=== PATIENT | male | born 1980 | race Caucasian/White ===

== ENCOUNTER 2020-08-28 11:07 | Outpatient (REF) | payer OTHER, SELFPAY ==
[2020-08-28 11:44] LABS: COVID-19 Test Negative (Negative); IDNOW Serial# 08D9AD1C
== END 2020-08-28 11:08 | disposition home or self-care (01) ==
LOC: HO.LAB 11:07
PROVIDERS: Visit Provider Internal Medicine
DX: Z20.822 Contact with and (suspected) exposure to COVID-19 (principal)
CPT/HCPCS: 36415; 87635; C9803

== ENCOUNTER 2022-05-25 09:18 | Emergency (ER) | payer MEDICAID, SELFPAY ==
--- NOTE | ~2022-05-25 | US_ITS ---
EXAMINATION: US VENOUS ULTRASOUND WITH DOPPLER LOWER EXTREMITY, BILATERAL CLINICAL INFORMATION: Leg swelling COMPARISON: None TECHNIQUE: Ultrasound of the deep veins is performed from the hip to the calf with compression sonography and color and pulse Doppler assessment. Spectral analysis with color-flow imaging is performed. FINDINGS: RIGHT: There is normal venous compression and respiratory variation and augmented flow. The visualized common femoral vein, superficial femoral vein, profunda femoral vein, popliteal vein, and the trifurcation region shows no evidence of deep venous thrombosis. There is no significant popliteal fossa cyst. LEFT: There is normal venous compression and respiratory variation and augmented flow. The visualized common femoral vein, superficial femoral vein, profunda femoral vein, popliteal vein, and the trifurcation region shows no evidence of deep venous thrombosis. There is no significant popliteal fossa cyst. If the patient's symptoms persist, followup ultrasound in 5 days 7 days might be of value to exclude proximal propagation from a non-visualized calf vein. Enlarged lymph nodes in the bilateral inguinal regions. US/US venous duplex LE BI IMPRESSION: No DVT demonstrated in the bilateral lower extremity.
--- NOTE | ~2022-05-25 | XR_ITS ---
EXAMINATION: XR CHEST CLINICAL INFORMATION: Cough COMPARISON: June 14, 2018 TECHNIQUE: 2 views of the chest were obtained. FINDINGS: No significant abnormality is noted involving the heart, lungs, mediastinum, bony thorax or soft tissues. XR/XR chest 2V IMPRESSION: No acute disease.
[2022-05-25 09:22] VITALS: BP 155/82; PULSE 90; RESP 19; TEMP 37.2; O2SAT 98; BMI 39.4
--- NOTE | 2022-05-25 09:40 | ED_ITS ---
HPI - URI/Sore Throat General Chief Complaint: Upper Respiratory Symptoms Stated Complaint: chills body numbness Time Seen by Provider: 05/25/22 09:33 Source: patient Mode of arrival: ambulatory Limitations: no limitations History of Present Illness HPI Narrative: This is a 41-year-old male with a history of smoking cigarettes, IV heroin use who presents with complaints of 2 days of chills, tactile fevers, body aches, cough. Patient reports 2 weeks ago he had COVID but seemed to recover from that. For the last 2 weeks he started to have symptoms again and became concerned. He denies any shortness of breath, chest pain, headache, neck pain or neck stiffness, skin rash, vomiting, diarrhea, abdominal pain, urinary symptoms. Patient reports bilateral lower extremity swelling and pain which he has had for several months. Patient reports he was seen by his primary care docto for this and had some blood work but patient does not know the result. He denies any additional testing. Patient feels like the swelling is about the same does not feel like it is worse. He does sometimes have some shortness of breath when he moves around but this has been a longstanding problem for him. Denies known history of liver disease/hepatitis C. NO alcohol use. Patient reports smokes cigarettes daily. Does use 3 bags of IV heroin daily. No additional substance use. Related Data Previous Rx's Medication Instructions Recorded doxycycline monohydrate 100 mg 100 mg PO BID #20 tabs 05/25/22 tablet Allergies Allergy/AdvReac Type Severity Reaction Status Date / Time No Known Allergies Allergy Unverified 02/09/20 15:53 [No Known Allergies*] Review of Systems Review of Systems: Yes all other systems are reviewed and are negative Constitutional: Constitutional: Reports no additional constitutional complaints, Reports body ache(s), Denies chills, Reports fever(s), Denies headache(s) and Denies weakness Eyes: Eyes: Reports no additional eye complaints and Denies change in vision ENT: Reports system reviewed and no additional complaints, except as documented, Denies dizziness, Denies headache(s), Denies nasal congestion, Denies nasal discharge and Denies neck pain Cardiovascular: Cardiovascular: Reports no additional cardiovascular complaints, Denies chest pain, Reports leg edema and Denies dyspnea Respiratory: Respiratory: Reports no additional respiratory complaints, Reports cough and Denies dyspnea Gastrointestinal: Gastrointestinal: Reports no additional gastrointestinal complaints, Denies abdominal pain, Denies diarrhea, Denies nausea and Denies vomiting Genitourinary: Genitourinary: Denies urinary incontinence Musculoskeletal: Musculoskeletal: Reports no additional musculoskeletal complaints, Denies back pain, Denies arthralgias, Denies joint swelling, Denies neck pain, Denies numbness and Denies tingling Integumentary/Breasts: Skin/Breast: Reports system reviewed and no additional complaints, except as docu and Denies rash Neurologic: Reports system reviewed and no additional complaints, except as documented, Denies Abnormal speech present, Denies dizziness, Denies headache(s), Denies numbness, Denies tingling and Denies weakness PMFSH Past Medical History Attestation statement: The following information was validated with the patient. Source: old records reviewed and nursing notes reviewed Social History Social History (Updated 05/25/22 @ 10:02 by Natty Cunningham NP) Patient Tobacco Use Status: Current everyday Tobacco user Use of substances other than those prescribed or required for medical reasons: Yes Substance Use Type: IV Drugs and Opiates Substance Use Frequency: Daily Advance Directives: No Advance Directives Information Provided: Yes Physical Exam Vital Signs: Vital Signs: Last Vital Signs Temp 101.1 F H 05/25/22 14:46 Pulse 84 05/25/22 14:46 Resp 16 05/25/22 14:46 BP 144/62 H 05/25/22 14:46 Pulse Ox 97 05/25/22 14:46 O2 Del Method 05/25/22 14:46 BMI result Body Mass Index 39.4 Const: General: cooperative, healthy appearing, comfortable and no acute distress Orientation/consciousness: patient oriented x3 Limitations: no limitations HEENT: Head: Yes normal to inspection Ears: hearing grossly normal bilaterally and TM's normal bilaterally General nose exam: Normal external nose present Face and sinus: Yes normal facial exam Mouth: Normal oral and palatal mucosa present Throat: Yes posterior oropharynx normal, Yes tonsils normal and Yes uvula midline Eyes: General: appearance normal, both eyes and all related structures Pupils: Equal, round and reactive pupils present Neck: Neck: Yes normal visual inspection, Yes full ROM, Yes no lymphadenopathy and Yes no meningeal signs Chest: Chest palpation & inspection: normal inspection of the chest Resp: Effort & Inspection: normal respiratory effort Auscultation: clear to auscultation bilaterally Cardio: Rate: regular rate Rhythm: regular rhythm Peripheral pulses: Peripheral pulses 2+ throughout GI: Inspection: Yes normal to inspection Palpation (GI): Soft to palpation and nontender Auscultation: normal bowel sounds Back/Spine/Pelvis: Thoracic/Lumbar Spine: thoracic and lumbar spine normal to inspection Skin: General skin exam: no rashes or lesions noted Neuro: General: patient oriented x3, no meningeal signs, no focal motor deficits and normal sensation to monofilament Cranial nerves: Yes Equal, round and reactive pupils present Cognition (Neuro): normal cognition Speech: No Abnormal speech present Gait exam (Neuro): Normal gait present Motor exam (neuro): 5/5 motor strength present throughout Extrem: Other: Patient with non-pitting edema of both bilateral lower extremities with disc oloration, slight warmth. Patient with palpable DP and PT pulses. General: Yes normal to inspection Course Course Course Narrative: 1100-lactic acid 3.3. Likely from dehydration and not from infection. IV fluids ordered Reevaluation(s) Reevaluation #1: Labs show thrombocytopenia, mildly elevated AST and ALT. This could be from recent viral infection however, now with fever 101.1 so consider other source. Also consider hepatitis-C so hepatitis panel was added with patient's consent. Due to flu-like symptoms with history of IV drug abuse also consider HIV so this was also ordered. Also consider underlying bacteremia, endocarditis d/t IVDA. Want to admit patient but he declined this aware we cannot rule these things out and he may need more testing, IV antibiotics. Patient declined. Did offer for the patient is to speak to the women's swim coach, offered methadone/Suboxone. Patient declined. Will leave AMA. Medications Administered Discontinued Medications Generic Name Dose Route Start Last Admin Trade Name Freq PRN Reason Stop Dose Admin Acetaminophen 975 mg 05/25/22 14:38 05/25/22 14:44 Acetaminophen 325 Mg Tablet PO 05/25/22 14:39 975 mg ONCE ONE Administration Doxycycline Monohydrate 100 mg 05/25/22 14:46 05/25/22 14:56 Doxycycline Monohydrate 100 Mg Capsule PO 05/25/22 14:47 100 mg ONCE ONE Administration Sodium Chloride 1,000 mls @ 999 mls/hr 05/25/22 11:05 05/25/22 14:57 Ns IV 05/25/22 12:05 Infused .Q1H1M STA Infusion Medical Decision Making Medical Decision Making [facility] Narrative: This is a 41-year-old male who has a history of IV drug abuse presents with 2 days of cough, chills, tactile temps as well as months of bilateral lower extremity swelling, vague dyspnea. Patient recovered from COVID 2 weeks ago. On arrival vitals are stable. Lungs clear. Patient with bilateral lower extremity non- pitting edema. Exam otherwise benign. D/t IVDA history with reports of chills/subjective fever will check labs, testing for flu/covid/rsv, EKG, CXR, venous US. Differential Diagnosis Differential Diagnoses: The differential diagnosis associated with the presentation includes DVT, cellulitis, viral syndrome, CHF, liver disease (hep C), bacteremia Low concern for meningitis-no PACKER, neck pain/stiffness, photophobia, neuro findings Low concern for epidural abscess with no reports of back or neck pain, no neuro findings or complaints Admission/Observation Consideration of admission/observation: Escalation of care including admission/observation considered Due to history of IV drug abuse now with fever from unknown source consider admission for further testing, treatment with IV antibiotics. Patient declined this some leave against medical advice Lab Data [facility] Lab Attestation statement: I reviewed the patient's lab results. Result Diagrams: 05/25/22 10:43 05/25/22 10:43 Labs: Lab Results 05/25/22 05/25/22 05/25/22 Range/Units 09:21 10:43 10:43 WBC 6.9 (4.8-10.8) X10*3/uL RBC 3.84 L (4.60-5.80) X10*6/uL Hgb 11.2 L (14.0-18.0) g/dl Hct 34.4 L (42.0-52.0) % MCV 89.6 (80.0-98.0) fL MCH 29.2 (27.0-33.0) pg MCHC 32.6 (31.0-36.0) g/dl RDW 14.3 (11.0-16.0) % Plt Count 59 L (160-400) X10*3/uL MPV 11.8 (9.4-12.4) fL Immature Gran % (Auto) 0.1 (0.0-0.4) % Neut % (Auto) 73.6 H (45-73) % Lymph % (Auto) 12.7 L (20-40) % [place] % (Auto) 13.0 H (2-11) % Eos % (Auto) 0.3 (0-4) % Baso % (Auto) 0.3 (0-2) % Lymph # (Auto) 0.9 L (1.2-4.9) X10*3/uL [place] # (Auto) 0.9 (0.1-1.2) X10*3/uL Eos # (Auto) 0.0 (0.0-0.4) X10*3/uL Baso # (Auto) 0.0 (0.0-0.2) X10*3/uL Abs Immat Gran (auto) 0.01 (0.00-0.03) X10*3/uL Absolute Neuts (auto) 5.1 (2.0-8.3) x10*3/uL Absolute Nucleated RBC 0.000 (0.0-0.012) X10*3/uL Nucleated RBC % (auto) 0.0 (0.0-0.2) /100WBC PT 14.4 H (10.0-13.1) SEC INR 1.2 H (0.9-1.1) Sodium (135-145) mmol/L Potassium (3.3-5.1) mmol/L Chloride (96-108) mmol/L Carbon Dioxide (22-29) mmol/L Anion Gap (12-20) BUN (9-16) mg/dL Creatinine (0.5-1.4) mg/dL Estim Creat Clear Calc Estimated GFR Random Glucose (60-115) mg/dL Lactic Acid (0.5-2.0) mmol/L Calcium (8.4-10.2) mg/dL Total Bilirubin (0.0-1.0) mg/dL Direct Bilirubin (0.0-0.5) mg/dL AST (5-37) U/L ALT (0-40) U/L Alkaline Phosphatase (39-117) U/L Troponin I High Sens (<3.5-35.0) ng/L B-Natriuretic Peptide (<100) pg/mL Total Protein (6.5-8.0) g/dL Albumin (3.5-5.0) g/dL Urine Color Urine Appearance Urine pH (5.0-9.0) Ur Specific [place] (1.005-1.025) Urine Protein (Neg-Trace) mg/dL Urine Glucose (UA) (Negative) mg/dL Urine Ketones (Negative) mg/dL Urine Blood (Negative) Urine Nitrite (Negative) Ur Leukocyte Esterase (Negative) Influenza Type A (PCR) NEGATIVE (Negative) Influenza Type B (PCR) NEGATIVE (Negative) RSV RNA Qual (PCR) NEGATIVE (Negative) SARS-CoV-2 RNA (RT-PCR) POSITIVE A (Negative) 05/25/22 05/25/22 05/25/22 Range/Units 10:43 10:43 10:43 WBC (4.8-10.8) X10*3/uL RBC (4.60-5.80) X10*6/uL Hgb (14.0-18.0) g/dl Hct (42.0-52.0) % MCV (80.0-98.0) fL MCH (27.0-33.0) pg MCHC (31.0-36.0) g/dl RDW (11.0-16.0) % Plt Count (160-400) X10*3/uL MPV (9.4-12.4) fL Immature Gran % (Auto) (0.0-0.4) % Neut % (Auto) (45-73) % Lymph % (Auto) (20-40) % [place] % (Auto) (2-11) % Eos % (Auto) (0-4) % Baso % (Auto) (0-2) % Lymph # (Auto) (1.2-4.9) X10*3/uL [place] # (Auto) (0.1-1.2) X10*3/uL Eos # (Auto) (0.0-0.4) X10*3/uL Baso # (Auto) (0.0-0.2) X10*3/uL Abs Immat Gran (auto) (0.00-0.03) X10*3/uL Absolute Neuts (auto) (2.0-8.3) x10*3/uL Absolute Nucleated RBC (0.0-0.012) X10*3/uL Nucleated RBC % (auto) (0.0-0.2) /100WBC PT (10.0-13.1) SEC INR (0.9-1.1) Sodium 135 (135-145) mmol/L Potassium 4.2 (3.3-5.1) mmol/L Chloride 102 (96-108) mmol/L Carbon Dioxide 26 (22-29) mmol/L Anion Gap 11 L (12-20) BUN 15 (9-16) mg/dL Creatinine 0.87 (0.5-1.4) mg/dL Estim Creat Clear Calc 146.5 Estimated GFR > 60 Random Glucose 83 (60-115) mg/dL Lactic Acid (0.5-2.0) mmol/L Calcium 8.6 (8.4-10.2) mg/dL Total Bilirubin 0.8 (0.0-1.0) mg/dL Direct Bilirubin 0.4 (0.0-0.5) mg/dL AST 97 H (5-37) U/L ALT 65 H (0-40) U/L Alkaline Phosphatase 69 (39-117) U/L Troponin I High Sens < 3.5 (<3.5-35.0) ng/L B-Natriuretic Peptide 53 (<100) pg/mL Total Protein 8.1 H (6.5-8.0) g/dL Albumin 3.6 (3.5-5.0) g/dL Urine Color Urine Appearance Urine pH (5.0-9.0) Ur Specific [place] (1.005-1.025) Urine Protein (Neg-Trace) mg/dL Urine Glucose (UA) (Negative) mg/dL Urine Ketones (Negative) mg/dL Urine Blood (Negative) Urine Nitrite (Negative) Ur Leukocyte Esterase (Negative) Influenza Type A (PCR) (Negative) Influenza Type B (PCR) (Negative) RSV RNA Qual (PCR) (Negative) SARS-CoV-2 RNA (RT-PCR) (Negative) 05/25/22 05/25/22 05/25/22 Range/Units 10:43 11:47 14:43 WBC (4.8-10.8) X10*3/uL RBC (4.60-5.80) X10*6/uL Hgb (14.0-18.0) g/dl Hct (42.0-52.0) % MCV (80.0-98.0) fL MCH (27.0-33.0) pg MCHC (31.0-36.0) g/dl RDW (11.0-16.0) % Plt Count (160-400) X10*3/uL MPV (9.4-12.4) fL Immature Gran % (Auto) (0.0-0.4) % Neut % (Auto) (45-73) % Lymph % (Auto) (20-40) % [place] % (Auto) (2-11) % Eos % (Auto) (0-4) % Baso % (Auto) (0-2) % Lymph # (Auto) (1.2-4.9) X10*3/uL [place] # (Auto) (0.1-1.2) X10*3/uL Eos # (Auto) (0.0-0.4) X10*3/uL Baso # (Auto) (0.0-0.2) X10*3/uL Abs Immat Gran (auto) (0.00-0.03) X10*3/uL Absolute Neuts (auto) (2.0-8.3) x10*3/uL Absolute Nucleated RBC (0.0-0.012) X10*3/uL Nucleated RBC % (auto) (0.0-0.2) /100WBC PT (10.0-13.1) SEC INR (0.9-1.1) Sodium (135-145) mmol/L Potassium (3.3-5.1) mmol/L Chloride (96-108) mmol/L Carbon Dioxide (22-29) mmol/L Anion Gap (12-20) BUN (9-16) mg/dL Creatinine (0.5-1.4) mg/dL Estim Creat Clear Calc Estimated GFR Random Glucose (60-115) mg/dL Lactic Acid 3.3 H* 1.0 (0.5-2.0) mmol/L Calcium (8.4-10.2) mg/dL Total Bilirubin (0.0-1.0) mg/dL Direct Bilirubin (0.0-0.5) mg/dL AST (5-37) U/L ALT (0-40) U/L Alkaline Phosphatase (39-117) U/L Troponin I High Sens (<3.5-35.0) ng/L B-Natriuretic Peptide (<100) pg/mL Total Protein (6.5-8.0) g/dL Albumin (3.5-5.0) g/dL Urine Color Yellow Urine Appearance Clear Urine pH 6.0 (5.0-9.0) Ur Specific [place] >= 1.030 H (1.005-1.025) Urine Protein Trace (Neg-Trace) mg/dL Urine Glucose (UA) Negative (Negative) mg/dL Urine Ketones Negative (Negative) mg/dL Urine Blood Negative (Negative) Urine Nitrite Negative (Negative) Ur Leukocyte Esterase Negative (Negative) Influenza Type A (PCR) (Negative) Influenza Type B (PCR) (Negative) RSV RNA Qual (PCR) (Negative) SARS-CoV-2 RNA (RT-PCR) (Negative) Independent Interpretation I performed an independent interpretation of an: EKG (Independently reviewed the EKG as normal sinus rhythm with a rate 84, normal IA, normal QRS, normal QT), Plain X-Ray (no acute finding) and Ultrasound (I independently reviewed the venous ultrasound which is negative for DVT) Radiology Impression Discussion of test interpretation with radiology: I have reviewed the radiologis t's reading. Radiologist Impression: [address] [address] XRay Report Signed Patient: Alessandro Russo MR#: [id number] : 1980 Acct:[id number] Age/Sex: 41 / M ADM Date: 05/25/22 Loc: .ED Attending Dr: Ordering Physician: Natty Cunningham NP Date of Service: 05/25/22 Procedure(s): XR chest 2V Accession Number(s): [id number] cc: Natty Cunningham NP~ EXAMINATION: XR CHEST CLINICAL INFORMATION: Cough COMPARISON: June 14, 2018 TECHNIQUE: 2 views of the chest were obtained. FINDINGS: No significant abnormality is noted involving the heart, lungs, mediastinum, bony thorax or soft tissues. XR/XR chest 2V IMPRESSION: No acute disease. Venuos US IMPRESSION: No DVT demonstrated in the bilateral lower extremity. Social Determinants Patient?s care significantly limited by Social Determinants of Health including: Other Social Determinant of Health Current IVDA (heroin) Procedures EJ/Peripheral Line Arm R: Time Out Performed: No Skin Cleansed in Sterile Fashion: Yes Size (gauge): 22 IV Secured and Dressing Applied: Yes Patient Tolerated Procedure: well Discharge Plan Discharge Clinical Impression: Thrombocytopenia, Elevated liver enzymes, Fever of unknown origin Patient Disposition: Left Against Medical Advice Instructions: Fever in Adults (ED), Against Medical Advice (ED), Thrombocytopenia (ED) Additional Instructions: You need to have a repeat CBC/liver enzymes by your PCP We sent testing for hepatitis, HIV. Results take several days and we will call you if positive. We discussed that you may have bacteria in her blood stream, and infection in the valves of your heart are an infection somewhere else that we cannot rule out in the emergency room. Our advice would be for you to be admitted to the hospital to have further testing done and received IV antibiotics but at this time you declined this. Please return at any point and we will re-evaluate you Prescriptions: New doxycycline monohydrate 100 mg tablet 100 mg PO BID Qty: 20 0RF Referrals: [facility] [Primary Care Provider] - Stand Alone Forms: Against Medical Advice Interventions: ED Discharge Assessment Last Done: 05/25/22 15:26 Discharge Date/Time: 05/25/22 15:26
--- NOTE | 2022-05-25 09:55 | ECG_ITS ---
Test Reason : leg swelling Blood Pressure : / mmHG Vent. Rate : 084 BPM Atrial Rate : 084 BPM P-R Int : 136 ms QRS Dur : 112 ms QT Int : 398 ms P-R-T Axes : 053 022 048 degrees QTc Int : 470 ms Normal sinus rhythm Incomplete right bundle branch block Borderline ECG No previous ECGs available Referred By: Natty Cunningham Electronically Signed By:RACHELE GARCIA MD
[2022-05-25 10:46] LABS: Influenza A PCR NEGATIVE (Negative); Influenza B PCR NEGATIVE (Negative); Resp Syncy Virus RNA Qual PCR NEGATIVE (Negative); SARS COV2 PCR INHOUSE POSITIVE (Negative)
[2022-05-25 10:48] LABS: MANUAL DIFF FLAG NO
[2022-05-25 10:50] LABS: Basophils Percent Auto 0.3 % (0-2); Eosinophils Percent Auto 0.3 % (0-4); Hematocrit 34.4 % (42.0-52.0); Hemoglobin 11.2 g/dl (14.0-18.0); Imm Gran Abs Auto 0.01 X10*3/uL (0.00-0.03); Imm Gran Pct Auto 0.1 % (0.0-0.4); Lymphocytes Absolute Auto 0.9 X10*3/uL (1.2-4.9); Lymphocytes Percent Auto 12.7 % (20-40); Mean Corpuscular HGB Conc 32.6 g/dl (31.0-36.0); Mean Corpuscular Hemoglobin 29.2 pg (27.0-33.0); Mean Corpuscular Volume 89.6 fL (80.0-98.0); Mean Platelet Volume 11.8 fL (9.4-12.4); Monocytes Absolute Auto 0.9 X10*3/uL (0.1-1.2); Neutrophils Absolute Auto 5.1 x10*3/uL (2.0-8.3); Neutrophils Percent Auto 73.6 % (45-73); Red Blood Count 3.84 X10*6/uL (4.60-5.80); Red Cell Distribution Width 14.3 % (11.0-16.0); White Blood Count 6.9 X10*3/uL (4.8-10.8)
[2022-05-25 10:55] LABS: INTERNATIONAL NORM RATIO 1.2 (0.9-1.1); Prothrombin Time 14.4 SEC (10.0-13.1)
[2022-05-25 11:04] LABS: Lactic Acid 3.3 mmol/L (0.5-2.0)
[2022-05-25 11:07] LABS: Alanine Aminotransferase 65 U/L (0-40); Albumin Level 3.6 g/dL (3.5-5.0); Alkaline Phosphatase 69 U/L (39-117); Anion Gap 11 (12-20); Aspartate Amino Transferase 97 U/L (5-37); Bilirubin Direct 0.4 mg/dL (0.0-0.5); Bilirubin Total 0.8 mg/dL (0.0-1.0); Blood Urea Nitrogen 15 mg/dL (9-16); Calcium 8.6 mg/dL (8.4-10.2); Carbon Dioxide 26 mmol/L (22-29); Chloride 102 mmol/L (96-108); Creatinine Clr Calc Pharmacy 146.5; Estimated Glomerular Filt Rate > 60; Glucose Random 83 mg/dL (60-115); Potassium 4.2 mmol/L (3.3-5.1); Sodium 135 mmol/L (135-145); Total Protein 8.1 g/dL (6.5-8.0)
[2022-05-25 11:09] LABS: Platelet Count 59 X10*3/uL (160-400)
[2022-05-25 11:11] LABS: B Type Natriuretic Peptide 53 pg/mL (<100)
[2022-05-25 11:13] LABS: Troponin-I High Sensitivity < 3.5 ng/L (<3.5-35.0)
[2022-05-25 11:57] LABS: Appearance Urine Clear; Color Urine Yellow; Glucose Urine UA Negative (Negative); Leukocyte Esterase Urine Negative (Negative); Nitrite Urine Negative (Negative); Specific Gravity - Urine >= 1.030 (1.005-1.025); Urine Blood Negative (Negative); Urine Ketones Negative (Negative); Urine Protein Trace mg/dL (Neg-Trace)
[2022-05-25] MEDS: 0.9 % Sodium Chloride 1,000 ML 999 ML IV (12:04)
[2022-05-25 12:46] LABS: Reflex Lactate? Lactic Acid Added
--- NOTE | 2022-05-25 14:40 | PC.NURSE ---
2nd lactic sent to lab per order
[2022-05-25] MEDS: Acetaminophen 325 MG TABLET 975 MG PO (14:44)
[2022-05-25 14:46] VITALS: BP 144/62; PULSE 84; RESP 16; TEMP 38.4; O2SAT 97
[2022-05-25] MEDS: Doxycycline Monohydrate 100 MG CAPSULE PO (14:56)
[2022-05-28 04:54] LABS: HBS Num1 0.27 mIU/mL (0-7.99); HBc Num1 0.13 S/CO (0.00-0.79); HIV AB/AG Nonreactive (Nonreactive); HIV Num 1 0.07 S/CO (0.00-0.99); Hepatitis A Antibody IgM 0.17 Index (0-0.79); Hepatitis B Core Antibody Nonreactive (Nonreactive); Hepatitis B Surface Antigen Negative (Negative); ~HepC Num1 15.68 S/CO (0.00-0.79); ~Hepatitis A Antibody IgM Nonreactive (Nonreactive); ~Hepatitis B Surface Antibody NONREACTIVE (Nonreactive); ~Hepatitis C Antibody Reactive (Nonreactive)
== END 2022-05-25 15:26 | disposition left against medical advice (07) ==
PROVIDERS: Nurse Practitioner Family; Emergency Provider Emergency Medicine
DX: D69.6 Thrombocytopenia, unspecified (principal); R60.0 Localized edema; R50.9 Fever, unspecified; R20.0 Anesthesia of skin; R79.89 Other specified abnormal findings of blood chemistry; R05.9 Cough, unspecified; M79.10 Myalgia, unspecified site; R06.02 Shortness of breath; Z79.899 Other long term (current) drug therapy; Z20.822 Contact with and (suspected) exposure to COVID-19; Z87.891 Personal history of nicotine dependence
CPT/HCPCS: 0241U; 36415; 36556; 71046; 80048; 80076; 81003; 83605; 83880; 84484; 85025; 85610; 86704; 86706; 86709; 86803; 87040; 87077; 87186; 87205; 87340; 87389; 93005; 93970; 99284

== ENCOUNTER 2022-05-26 20:01 | Observation (INO) | payer MEDICAID, SELFPAY ==
--- NOTE | ~2022-05-26 | XR_ITS ---
EXAMINATION: XR CHEST CLINICAL INFORMATION: Positive blood cultures COMPARISON: 05/25/2022 TECHNIQUE: Frontal view of the chest was obtained. FINDINGS: Normal symmetric lung volumes. No parenchymal consolidation. No pleural effusion. No pneumothorax. Cardiomediastinal silhouette and pulmonary vascularity are within normal limits. No acute osseous abnormalities. XR/XR chest 1V IMPRESSION: No acute findings
[2022-05-26 20:34] VITALS: BP 132/66; PULSE 73; RESP 16; TEMP 36.6; O2SAT 98; BMI 40.1
--- NOTE | 2022-05-26 20:36 | ED_ITS ---
HPI - Recheck/Abnormal Lab/Rx General Chief Complaint: General Medical <KHADRA Hummel - Last Filed: 05/26/22 20:38> Stated Complaint: abnormal labs was seen here yesterday <KHADRA Hummel - Last Filed: 05/26/22 20:38> Time Seen by Provider: 05/26/22 21:06 <KHADRA Hummel - Last Filed: 05/26/22 20:38> Source: patient <Tico Rosenbaum MD - Last Filed: 05/27/22 01:03> Mode of arrival: ambulatory <Tico Rosenbaum MD - Last Filed: 05/27/22 01:03> Limitations: no limitations <Tico Rosenbaum MD - Last Filed: 05/27/22 01:03> History of Present Illness HPI narrative: Patient's history of IV drug abuse was seen here yesterday for chills body aches for last 2 days blood culture was done which showed Gram-positive cocci in chain patient initial lactic acid level was 3.3 improved after IV hydration to 1.0 had normal WBC count still does not feel good. Patient had COVID 2 weeks ago on 05/25/22 COVID test was positive today his repeat COVID test was negative patient denies any cold symptoms still has some cough afebrile on arrival <Tico Rosenbaum MD - Last Filed: 05/27/22 01:03> Related Data Home Medications: Previous Rx's Medication Instructions Recorded doxycycline monohydrate 100 mg 100 mg PO BID #20 tabs 05/25/22 tablet <KHADRA Hummel - Last Filed: 05/26/22 20:38> Allergies/Adverse Reactions: Allergies Allergy/AdvReac Type Severity Reaction Status Date / Time No Known Allergies Allergy Unverified 02/09/20 15:53 [No Known Allergies*] <KHADRA Hummel - Last Filed: 05/26/22 20:38> Review of Systems Review of Systems: Yes all other systems are reviewed and are negative <Tico Rosenbaum MD - Last Filed: 05/27/22 01:03> PMFSH Social History Social History: Social History Patient Tobacco Use Status: Current everyday Tobacco user Substance Use Type: IV Drugs and Opiates Advance Directives: No Advance Directives Information Provided: No <KHADRA Hummel - Last Filed: 05/26/22 20:38> Physical Exam Vital Signs: Vital Signs: Last Vital Signs Temp 97.8 F 05/26/22 22:52 Pulse 63 05/26/22 22:52 Resp 16 05/26/22 22:52 BP 142/77 H 05/26/22 22:52 Pulse Ox 97 05/26/22 22:52 O2 Del Method 05/26/22 22:52 BMI result Body Mass Index 40.1 <KHADRA Hummel - Last Filed: 05/26/22 20:38> Vital Signs: Last Vital Signs Temp 97.8 F 05/26/22 22:52 Pulse 63 05/26/22 22:52 Resp 16 05/26/22 22:52 BP 142/77 H 05/26/22 22:52 Pulse Ox 97 05/26/22 22:52 O2 Del Method 05/26/22 22:52 BMI result Body Mass Index 40.1 <Tico Rosenbaum MD - Last Filed: 05/27/22 01:03> Appearance: Alert. Oriented X3. No acute distress. Eyes: PERRLA, No Nystagmus ENT: Pharynx normal. Oral Mucosa moist Neck: Normal inspection. Neck supple. CVS: Normal heart rate and rhythm. Pulses normal. Respiratory: No respiratory distress. Equal air entry bilateral, no wheezing/rales/rhonchi Abdomen: Soft and nontender. Bowel sounds are present, no mass palpable, no CVA tenderness Skin: Skin warm and dry. Normal skin color. Normal skin turgor. Extremities: No lower extremity edema. No calf tenderness IVDA track ferrara++ Neuro: Oriented X 3. No motor deficit. No sensory deficit.No cerebellar signs , cranial nerves II-XII intact <Tico Rosenbaum MD - Last Filed: 05/27/22 01:03> Course Course Course Narrative: RME-20:36PM - 41-YEAR-OLD MALE WITH PAST MEDICAL HISTORY OF IV DRUG USE PRESENTING TO THE ER AFTER HE WAS CALLED BACK FROM US TODAY FOR POSSIBLE ENDOCARDITIS DUE TO PATIENT HAD POSITIVE BLOOD CULTURES THAT GREW BACK GRAM-POSITIVE COCCI IN CHAINS. Plan: Will obtain labs, blood cultures, lactic acid. Patient will be sent back to the waiting room to be evaluated in the ED. <KHADRA Hummel - Last Filed: 05/26/22 20:38> Medications Administered Generic Name Dose Route Start Last Admin Trade Name Freq PRN Reason Stop Dose Admin Sodium Chloride 3 ml 05/27/22 00:00 05/26/22 23:59 0.9 % Sodium Chloride Flush 3 Ml Syringe IVFLUSH Not Given QSHIFT MITCHELL Discontinued Medications Generic Name Dose Route Start Last Admin Trade Name Freq PRN Reason Stop Dose Admin Sodium Chloride 1,000 mls @ 999 mls/hr 05/26/22 20:45 05/26/22 23:28 Ns IVCONT 05/26/22 21:45 Infused .Q1H1M MITCHELL Infusion Ceftriaxone Sodium 1 gm/ 50 mls @ 100 mls/hr 05/26/22 21:10 05/26/22 22:07 Sodium Chloride IV 05/26/22 21:39 Infused ONCE ONE Infusion Vancomycin HCl 2,000 mg/ 540 mls @ 270 mls/hr 05/26/22 21:30 05/26/22 22:07 Sodium Chloride IV 05/26/22 23:29 270 mls/hr ONCE ONE Administration <KHADRA Hummel - Last Filed: 05/26/22 20:38> Medications Administered Generic Name Dose Route Start Last Admin Trade Name Freq PRN Reason Stop Dose Admin Sodium Chloride 3 ml 05/27/22 00:00 05/26/22 23:59 0.9 % Sodium Chloride Flush 3 Ml Syringe IVFLUSH Not Given QSHIFT MITCHELL Discontinued Medications Generic Name Dose Route Start Last Admin Trade Name Freq PRN Reason Stop Dose Admin Sodium Chloride 1,000 mls @ 999 mls/hr 05/26/22 20:45 05/26/22 23:28 Ns IVCONT 05/26/22 21:45 Infused .Q1H1M MITCHELL Infusion Ceftriaxone Sodium 1 gm/ 50 mls @ 100 mls/hr 05/26/22 21:10 05/26/22 22:07 Sodium Chloride IV 05/26/22 21:39 Infused ONCE ONE Infusion Vancomycin HCl 2,000 mg/ 540 mls @ 270 mls/hr 05/26/22 21:30 05/26/22 22:07 Sodium Chloride IV 05/26/22 23:29 270 mls/hr ONCE ONE Administration <Tico Rosenbaum MD - Last Filed: 05/27/22 01:03> Medical Decision Making Medical Decision Making [facility] Narrative: Patient with history of IVDA use with subjective fever and chills initial blood culture showed Gram-positive cocci in chain had initially elevated lactic acid patient with high risk of strep bacteremia could be very dense versus epidural disease. Will start patient back on vancomycin and Rocephin plan to admit till final culture report <Tico Rosenbaum MD - Last Filed: 05/27/22 01:03> Consult Healthcare Provider Management of the patient was discussed with: Hospitalist <Tico Rosenbaum MD - Last Filed: 05/27/22 01:03> Lab Data [facility] Lab Attestation statement: I reviewed the patient's lab results. <Tico Rosenbaum MD - Last Filed: 05/27/22 01:03> Result Diagrams: : 05/26/22 20:51 05/26/22 20:51 <KHADRA Hummel - Last Filed: 05/26/22 20:38> Labs: Lab Results 05/26/22 05/26/22 05/26/22 Range/Units 20:51 20:51 20:51 WBC 4.6 L (4.8-10.8) X10*3/uL RBC 3.54 L (4.60-5.80) X10*6/uL Hgb 10.4 L (14.0-18.0) g/dl Hct 31.1 L (42.0-52.0) % MCV 87.9 (80.0-98.0) fL MCH 29.4 (27.0-33.0) pg MCHC 33.4 (31.0-36.0) g/dl RDW 14.0 (11.0-16.0) % Plt Count 76 L D (160-400) X10*3/uL MPV 10.9 (9.4-12.4) fL Immature Gran % (Auto) 0.2 (0.0-0.4) % Neut % (Auto) 51.4 (45-73) % Lymph % (Auto) 33.1 (20-40) % [place] % (Auto) 14.2 H (2-11) % Eos % (Auto) 0.7 (0-4) % Baso % (Auto) 0.4 (0-2) % Lymph # (Auto) 1.5 (1.2-4.9) X10*3/uL [place] # (Auto) 0.7 (0.1-1.2) X10*3/uL Eos # (Auto) 0.0 (0.0-0.4) X10*3/uL Baso # (Auto) 0.0 (0.0-0.2) X10*3/uL Abs Immat Gran (auto) 0.01 (0.00-0.03) X10*3/uL Absolute Neuts (auto) 2.4 (2.0-8.3) x10*3/uL Absolute Nucleated RBC 0.000 (0.0-0.012) X10*3/uL Nucleated RBC % (auto) 0.0 (0.0-0.2) /100WBC ESR (0-15) MM/HR PT (10.0-13.1) SEC INR (0.9-1.1) Sodium 137 (135-145) mmol/L Potassium 3.4 (3.3-5.1) mmol/L Chloride 104 (96-108) mmol/L Carbon Dioxide 24 (22-29) mmol/L Anion Gap 12 (12-20) BUN 19 H (9-16) mg/dL Creatinine 0.87 (0.5-1.4) mg/dL Estim Creat Clear Calc 148.0 Estimated GFR > 60 Random Glucose 123 H (60-115) mg/dL Lactic Acid 1.2 (0.5-2.0) mmol/L Calcium 8.2 L (8.4-10.2) mg/dL Magnesium 2.2 (1.6-2.6) mg/dL Total Bilirubin 0.6 (0.0-1.0) mg/dL AST 125 H (5-37) U/L ALT 65 H (0-40) U/L Alkaline Phosphatase 55 (39-117) U/L C-Reactive Protein 6.38 H (< or = 0.50) mg/dL Total Protein 7.6 (6.5-8.0) g/dL Albumin 3.4 L (3.5-5.0) g/dL Influenza Type A (PCR) (Negative) Influenza Type B (PCR) (Negative) RSV RNA Qual (PCR) (Negative) SARS-CoV-2 RNA (RT-PCR) (Negative) 05/26/22 05/26/22 05/26/22 Range/Units 20:51 20:51 20:52 WBC (4.8-10.8) X10*3/uL RBC (4.60-5.80) X10*6/uL Hgb (14.0-18.0) g/dl Hct (42.0-52.0) % MCV (80.0-98.0) fL MCH (27.0-33.0) pg MCHC (31.0-36.0) g/dl RDW (11.0-16.0) % Plt Count (160-400) X10*3/uL MPV (9.4-12.4) fL Immature Gran % (Auto) (0.0-0.4) % Neut % (Auto) (45-73) % Lymph % (Auto) (20-40) % [place] % (Auto) (2-11) % Eos % (Auto) (0-4) % Baso % (Auto) (0-2) % Lymph # (Auto) (1.2-4.9) X10*3/uL [place] # (Auto) (0.1-1.2) X10*3/uL Eos # (Auto) (0.0-0.4) X10*3/uL Baso # (Auto) (0.0-0.2) X10*3/uL Abs Immat Gran (auto) (0.00-0.03) X10*3/uL Absolute Neuts (auto) (2.0-8.3) x10*3/uL Absolute Nucleated RBC (0.0-0.012) X10*3/uL Nucleated RBC % (auto) (0.0-0.2) /100WBC ESR 37 H (0-15) MM/HR PT 14.8 H (10.0-13.1) SEC INR 1.3 H (0.9-1.1) Sodium (135-145) mmol/L Potassium (3.3-5.1) mmol/L Chloride (96-108) mmol/L Carbon Dioxide (22-29) mmol/L Anion Gap (12-20) BUN (9-16) mg/dL Creatinine (0.5-1.4) mg/dL Estim Creat Clear Calc Estimated GFR Random Glucose (60-115) mg/dL Lactic Acid (0.5-2.0) mmol/L Calcium (8.4-10.2) mg/dL Magnesium (1.6-2.6) mg/dL Total Bilirubin (0.0-1.0) mg/dL AST (5-37) U/L ALT (0-40) U/L Alkaline Phosphatase (39-117) U/L C-Reactive Protein (< or = 0.50) mg/dL Total Protein (6.5-8.0) g/dL Albumin (3.5-5.0) g/dL Influenza Type A (PCR) NEGATIVE (Negative) Influenza Type B (PCR) NEGATIVE (Negative) RSV RNA Qual (PCR) NEGATIVE (Negative) SARS-CoV-2 RNA (RT-PCR) NEGATIVE (Negative) <KHADRA Hummel - Last Filed: 05/26/22 20:38> Lab Results 05/26/22 05/26/22 05/26/22 Range/Units 20:51 20:51 20:51 WBC 4.6 L (4.8-10.8) X10*3/uL RBC 3.54 L (4.60-5.80) X10*6/uL Hgb 10.4 L (14.0-18.0) g/dl Hct 31.1 L (42.0-52.0) % MCV 87.9 (80.0-98.0) fL MCH 29.4 (27.0-33.0) pg MCHC 33.4 (31.0-36.0) g/dl RDW 14.0 (11.0-16.0) % Plt Count 76 L D (160-400) X10*3/uL MPV 10.9 (9.4-12.4) fL Immature Gran % (Auto) 0.2 (0.0-0.4) % Neut % (Auto) 51.4 (45-73) % Lymph % (Auto) 33.1 (20-40) % [place] % (Auto) 14.2 H (2-11) % Eos % (Auto) 0.7 (0-4) % Baso % (Auto) 0.4 (0-2) % Lymph # (Auto) 1.5 (1.2-4.9) X10*3/uL [place] # (Auto) 0.7 (0.1-1.2) X10*3/uL Eos # (Auto) 0.0 (0.0-0.4) X10*3/uL Baso # (Auto) 0.0 (0.0-0.2) X10*3/uL Abs Immat Gran (auto) 0.01 (0.00-0.03) X10*3/uL Absolute Neuts (auto) 2.4 (2.0-8.3) x10*3/uL Absolute Nucleated RBC 0.000 (0.0-0.012) X10*3/uL Nucleated RBC % (auto) 0.0 (0.0-0.2) /100WBC ESR (0-15) MM/HR PT (10.0-13.1) SEC INR (0.9-1.1) Sodium 137 (135-145) mmol/L Potassium 3.4 (3.3-5.1) mmol/L Chloride 104 (96-108) mmol/L Carbon Dioxide 24 (22-29) mmol/L Anion Gap 12 (12-20) BUN 19 H (9-16) mg/dL Creatinine 0.87 (0.5-1.4) mg/dL Estim Creat Clear Calc 148.0 Estimated GFR > 60 Random Glucose 123 H (60-115) mg/dL Lactic Acid 1.2 (0.5-2.0) mmol/L Calcium 8.2 L (8.4-10.2) mg/dL Magnesium 2.2 (1.6-2.6) mg/dL Total Bilirubin 0.6 (0.0-1.0) mg/dL AST 125 H (5-37) U/L ALT 65 H (0-40) U/L Alkaline Phosphatase 55 (39-117) U/L C-Reactive Protein 6.38 H (< or = 0.50) mg/dL Total Protein 7.6 (6.5-8.0) g/dL Albumin 3.4 L (3.5-5.0) g/dL Influenza Type A (PCR) (Negative) Influenza Type B (PCR) (Negative) RSV RNA Qual (PCR) (Negative) SARS-CoV-2 RNA (RT-PCR) (Negative) 05/26/22 05/26/22 05/26/22 Range/Units 20:51 20:51 20:52 WBC (4.8-10.8) X10*3/uL RBC (4.60-5.80) X10*6/uL Hgb (14.0-18.0) g/dl Hct (42.0-52.0) % MCV (80.0-98.0) fL MCH (27.0-33.0) pg MCHC (31.0-36.0) g/dl RDW (11.0-16.0) % Plt Count (160-400) X10*3/uL MPV (9.4-12.4) fL Immature Gran % (Auto) (0.0-0.4) % Neut % (Auto) (45-73) % Lymph % (Auto) (20-40) % [place] % (Auto) (2-11) % Eos % (Auto) (0-4) % Baso % (Auto) (0-2) % Lymph # (Auto) (1.2-4.9) X10*3/uL [place] # (Auto) (0.1-1.2) X10*3/uL Eos # (Auto) (0.0-0.4) X10*3/uL Baso # (Auto) (0.0-0.2) X10*3/uL Abs Immat Gran (auto) (0.00-0.03) X10*3/uL Absolute Neuts (auto) (2.0-8.3) x10*3/uL Absolute Nucleated RBC (0.0-0.012) X10*3/uL Nucleated RBC % (auto) (0.0-0.2) /100WBC ESR 37 H (0-15) MM/HR PT 14.8 H (10.0-13.1) SEC INR 1.3 H (0.9-1.1) Sodium (135-145) mmol/L Potassium (3.3-5.1) mmol/L Chloride (96-108) mmol/L Carbon Dioxide (22-29) mmol/L Anion Gap (12-20) BUN (9-16) mg/dL Creatinine (0.5-1.4) mg/dL Estim Creat Clear Calc Estimated GFR Random Glucose (60-115) mg/dL Lactic Acid (0.5-2.0) mmol/L Calcium (8.4-10.2) mg/dL Magnesium (1.6-2.6) mg/dL Total Bilirubin (0.0-1.0) mg/dL AST (5-37) U/L ALT (0-40) U/L Alkaline Phosphatase (39-117) U/L C-Reactive Protein (< or = 0.50) mg/dL Total Protein (6.5-8.0) g/dL Albumin (3.5-5.0) g/dL Influenza Type A (PCR) NEGATIVE (Negative) Influenza Type B (PCR) NEGATIVE (Negative) RSV RNA Qual (PCR) NEGATIVE (Negative) SARS-CoV-2 RNA (RT-PCR) NEGATIVE (Negative) <Tico Rosenbaum MD - Last Filed: 05/27/22 01:03> Discharge Plan Discharge Clinical Impression: Bacteremia <KHADRA Hummel - Last Filed: 05/26/22 20:38> Patient Disposition: Admitted As Inpatient <KHADRA Hummel - Last Filed: 05/26/22 20:38>
[2022-05-26 21:02] LABS: MANUAL DIFF FLAG NO
[2022-05-26 21:03] LABS: Basophils Percent Auto 0.4 % (0-2); Eosinophils Percent Auto 0.7 % (0-4); Hematocrit 31.1 % (42.0-52.0); Hemoglobin 10.4 g/dl (14.0-18.0); Imm Gran Abs Auto 0.01 X10*3/uL (0.00-0.03); Imm Gran Pct Auto 0.2 % (0.0-0.4); Lymphocytes Absolute Auto 1.5 X10*3/uL (1.2-4.9); Lymphocytes Percent Auto 33.1 % (20-40); Mean Corpuscular HGB Conc 33.4 g/dl (31.0-36.0); Mean Corpuscular Hemoglobin 29.4 pg (27.0-33.0); Mean Corpuscular Volume 87.9 fL (80.0-98.0); Mean Platelet Volume 10.9 fL (9.4-12.4); Monocytes Absolute Auto 0.7 X10*3/uL (0.1-1.2); Monocytes Percent Auto 14.2 % (2-11); Neutrophils Absolute Auto 2.4 x10*3/uL (2.0-8.3); Neutrophils Percent Auto 51.4 % (45-73); Red Blood Count 3.54 X10*6/uL (4.60-5.80); White Blood Count 4.6 X10*3/uL (4.8-10.8)
[2022-05-26] MEDS: 0.9 % Sodium Chloride 1,000 ML 999 ML IVCONT (21:13)
[2022-05-26 21:14] LABS: INTERNATIONAL NORM RATIO 1.3 (0.9-1.1); Prothrombin Time 14.8 SEC (10.0-13.1)
[2022-05-26 21:16] LABS: Platelet Count 76 X10*3/uL (160-400)
[2022-05-26 21:21] LABS: Lactic Acid 1.2 mmol/L (0.5-2.0)
[2022-05-26] MEDS: cefTRIAXone sodium 1 GM in 0.9 % Sodium Chloride 50 ML IV (21:27)
[2022-05-26 21:34] LABS: C Reactive Protein 6.38 mg/dL (< or = 0.50)
[2022-05-26 21:41] LABS: Influenza A PCR NEGATIVE (Negative); Influenza B PCR NEGATIVE (Negative); Resp Syncy Virus RNA Qual PCR NEGATIVE (Negative); SARS COV2 PCR INHOUSE NEGATIVE (Negative)
[2022-05-26 21:42] LABS: Alanine Aminotransferase 65 U/L (0-40); Albumin Level 3.4 g/dL (3.5-5.0); Alkaline Phosphatase 55 U/L (39-117); Anion Gap 12 (12-20); Aspartate Amino Transferase 125 U/L (5-37); Bilirubin Total 0.6 mg/dL (0.0-1.0); Blood Urea Nitrogen 19 mg/dL (9-16); Calcium 8.2 mg/dL (8.4-10.2); Carbon Dioxide 24 mmol/L (22-29); Chloride 104 mmol/L (96-108); Estimated Glomerular Filt Rate > 60; Glucose Random 123 mg/dL (60-115); Magnesium 2.2 mg/dL (1.6-2.6); Potassium 3.4 mmol/L (3.3-5.1); Sodium 137 mmol/L (135-145); Total Protein 7.6 g/dL (6.5-8.0)
[2022-05-26 21:52] LABS: Erythrocyte Sedimentation Rate 37 MM/HR (0-15)
[2022-05-26 22:52] VITALS: BP 142/77; PULSE 63; RESP 16; TEMP 36.6; O2SAT 97
--- NOTE | 2022-05-26 23:23 | PM.IMHP ---
History of Present Illness Date of Service: 05/26/22 Chief Complaint: bacteremic 41-year-old male with past medical history of IV drug use presents to the hospital after a positive blood culture. Patient was seen in the hospital on 05/25 with respiratory symptoms, patient was diagnosed with COVID-19, bronchitis and sent home with doxycycline. patient also noted to have elevated lactic acid and febrile on 05/25. Lactic acid resolved with IV fluids, patient was sent home.He was called back today from the ED for positive blood cultures. Patient reports no symptoms at this time, he reports that he is feeling better. Denies having fever, no chills, denies any chest pain, no palpitations, no abdominal pain nausea or vomiting, no diarrhea constipation, no urinary symptoms. Reports no cough and no shortness of breath. patient does endorse injecting opioids arrival to the ED patient hemodynamically stable with no significant abnormal vitals except a slightly elevated blood pressure Labs are significant for WBC count of 4.6, hemoglobin of 10.4, hematocrit 31.1, ESR 37, CRP of 6.3, labs otherwise unremarkable, AST of 125, ALT of 65, was diagnosed with COVID-19 on 05/25 Blood cultures growing Gram-positive cocci in chains. Chest x-ray negative for acute findings Review of Systems Review of Systems: Yes all other systems are reviewed and are negative [facility] Medical History IV drug user Family History (Updated 05/27/22 @ 01:22 by Erin Flaherty MD) Other No family history of coronary artery disease Surgical History (Updated 05/27/22 @ 01:22 by Erin Flaherty MD) No pertinent past surgical history Social History (Updated 05/27/22 @ 01:23 by Erin Flaherty MD) Alcohol intake: current Patient Tobacco Use Status: Current everyday Tobacco user Cigarette Packs Per Day: 1 Substance Use Type: IV Drugs and Opiates Advance Directives: No Advance Directives Information Provided: No Meds Allergies Allergy/AdvReac Type Severity Reaction Status Date / Time No Known Allergies Allergy Unverified 02/09/20 15:53 [No Known Allergies*] Active Medications: Current Medications Vancomycin HCl 2,000 mg/ (Sodium Chloride) 540 mls @ 270 mls/hr IV ONCE ONE Stop: 05/26/22 23:29 Last Admin: 05/26/22 22:07 Dose: 270 mls/hr Physical Exam Vital Signs and Narrative: Vital Signs: Last Vital Signs Temp 97.8 F 05/26/22 22:52 Pulse 63 05/26/22 22:52 Resp 16 05/26/22 22:52 BP 142/77 H 05/26/22 22:52 Pulse Ox 97 05/26/22 22:52 O2 Del Method 05/26/22 22:52 BMI result Body Mass Index 40.1 Const: General: cooperative and no acute distress Orientation/consciousness: patient oriented x3 Eyes: General: appearance normal, both eyes and all related structures Resp: Effort & Inspection: normal respiratory effort Auscultation: clear to auscultation bilaterally Cardio: Rate: regular rate Rhythm: regular rhythm GI: Palpation (GI): Soft to palpation Auscultation: normal bowel sounds Skin: General skin exam: no rashes or lesions noted Neuro: General: patient oriented x3 Cognition (Neuro): normal cognition Extrem: General: Yes normal to inspection and Yes no pedal edema Results Labs CBC and Chem 7: 05/26/22 20:51 05/26/22 20:51 Labs: Laboratory Results - last 24 hr 05/26/22 05/26/22 05/26/22 20:51 20:51 20:51 MCV 87.9 MCH 29.4 MCHC 33.4 RDW 14.0 Plt Count 76 L D MPV 10.9 Immature Gran % (Auto) 0.2 Neut % (Auto) 51.4 Lymph % (Auto) 33.1 [place] % (Auto) 14.2 H Eos % (Auto) 0.7 Baso % (Auto) 0.4 Lymph # (Auto) 1.5 [place] # (Auto) 0.7 Eos # (Auto) 0.0 Baso # (Auto) 0.0 Abs Immat Gran (auto) 0.01 Absolute Neuts (auto) 2.4 Absolute Nucleated RBC 0.000 Nucleated RBC % (auto) 0.0 ESR PT INR Anion Gap 12 Estim Creat Clear Calc 148.0 Estimated GFR > 60 Random Glucose 123 H Lactic Acid 1.2 Calcium 8.2 L Magnesium 2.2 Total Bilirubin 0.6 AST 125 H ALT 65 H Alkaline Phosphatase 55 C-Reactive Protein 6.38 H Total Protein 7.6 Albumin 3.4 L Influenza Type A (PCR) Influenza Type B (PCR) RSV RNA Qual (PCR) SARS-CoV-2 RNA (RT-PCR) 05/26/22 05/26/22 05/26/22 20:51 20:51 20:52 MCV MCH MCHC RDW Plt Count MPV Immature Gran % (Auto) Neut % (Auto) Lymph % (Auto) [place] % (Auto) Eos % (Auto) Baso % (Auto) Lymph # (Auto) [place] # (Auto) Eos # (Auto) Baso # (Auto) Abs Immat Gran (auto) Absolute Neuts (auto) Absolute Nucleated RBC Nucleated RBC % (auto) ESR 37 H PT 14.8 H INR 1.3 H Anion Gap Estim Creat Clear Calc Estimated GFR Random Glucose Lactic Acid Calcium Magnesium Total Bilirubin AST ALT Alkaline Phosphatase C-Reactive Protein Total Protein Albumin Influenza Type A (PCR) NEGATIVE Influenza Type B (PCR) NEGATIVE RSV RNA Qual (PCR) NEGATIVE SARS-CoV-2 RNA (RT-PCR) NEGATIVE Assessment and Plan (1) Bacteremia: Status: Acute (2) COVID-19: Status: Acute Plan 41-year-old male with recent diagnosis of COVID-19 on 05/25 returns to the hospital after having a positive she blood cultures # bacteremia - blood cultures positive Gram-positive cocci in chains - likely contaminant but given prior day lactic acidosis and fever as well as history of IV drug use patient will be admitted and started on IV antibiotics - repeat cultures # COVID-19 infection - asymptomatic - monitor symptoms DVT prophylaxis: Early ambulation Time Spent With Patient Time: Total time managing care of this patient today ____ minutes. Quality Stroke Does the patient have a stroke diagnosis?: No VTE Prior VTE?: No VTE Risk Level:: Medical - low VTE Device Contraindication: Treatment Not Indicated VTE Drug Contraindication: Treatment Not Indicated
--- NOTE | 2022-05-27 05:50 | PC.NURSE ---
Re-Assessment/ transferring from [facility] to room 17: Pt V/S are stable, pt is a/o x 4, pt appears to be agitated, BP is slightly elevated pt denies any hx of hypertension. Pt's lung sounds are clear throughout bilaterally. Pt is connected to the monitor and it shoes NSR. Pt has pitting edema +3 bilaterally on his foot and leg discoloration, but + peripheral pulse. Pt has a 20g IV access on his LAC.
--- NOTE | 2022-05-27 06:01 | PC.NURSE ---
Pt takes methadone from [facility].
[2022-05-27 07:05] VITALS: BP 156/79; PULSE 68; RESP 14; TEMP 36.7; O2SAT 100
[2022-05-27 07:34] LABS: MANUAL DIFF FLAG NO
--- NOTE | 2022-05-27 07:35 | PC.NURSE ---
set up patient in the bathroom, pt wash up and relaxing now.
[2022-05-27 07:44] LABS: Basophils Percent Auto 0.3 % (0-2); Eosinophils Percent Auto 1.1 % (0-4); Hematocrit 29.9 % (42.0-52.0); Imm Gran Abs Auto 0.01 X10*3/uL (0.00-0.03); Imm Gran Pct Auto 0.3 % (0.0-0.4); Lymphocytes Percent Auto 27.9 % (20-40); Mean Corpuscular HGB Conc 33.4 g/dl (31.0-36.0); Mean Corpuscular Hemoglobin 29.9 pg (27.0-33.0); Mean Corpuscular Volume 89.5 fL (80.0-98.0); Monocytes Absolute Auto 0.5 X10*3/uL (0.1-1.2); Monocytes Percent Auto 12.9 % (2-11); Neutrophils Absolute Auto 2.2 x10*3/uL (2.0-8.3); Neutrophils Percent Auto 57.5 % (45-73); Red Blood Count 3.34 X10*6/uL (4.60-5.80); Red Cell Distribution Width 14.2 % (11.0-16.0); White Blood Count 3.7 X10*3/uL (4.8-10.8)
[2022-05-27 07:47] LABS: Platelet Count 66 X10*3/uL (160-400)
[2022-05-27 07:52] LABS: Anion Gap 13 (12-20); Blood Urea Nitrogen 16 mg/dL (9-16); Calcium 7.9 mg/dL (8.4-10.2); Carbon Dioxide 22 mmol/L (22-29); Chloride 106 mmol/L (96-108); Estimated Glomerular Filt Rate > 60; Glucose Random 85 mg/dL (60-115); Potassium 3.7 mmol/L (3.3-5.1); Sodium 137 mmol/L (135-145)
--- NOTE | 2022-05-27 08:26 | PC.NURSE ---
pt to move to the ed overflow unit. report given to cheryl medina.
--- NOTE | 2022-05-27 08:31 | PHA.MEDREC ---
Pharmacy Consult ? Medication Reconciliation Pharmacy has completed the medication reconciliation. Patient states they are only on methadone 135 mg daily. Dose has not been verified at time of note.
--- NOTE | 2022-05-27 09:40 | MHC.CM.PN ---
Patient is Covid (+); CM spoke with him over the phone at [phone] and addressed GOODEN with him. Patient lives in a 2 family house with his and home/resume Methadone from [facility] is the goal and CM has initiated and will follow for dc planning. Patient has received Moderna/Covid vax x3 and his PCP is from [facility]. 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
[2022-05-27] MEDS: methADONE HCl 20 MG/2 ML ORAL.CONC 135 MG PO (09:56)
--- NOTE | 2022-05-27 10:22 | P.PNIM_ITS ---
Subjective Subjective Date of Service: 05/27/22 Interval History: no fever or cough no known hx of HIV or hepatitis Review of Systems Review of Systems: Yes all other systems are reviewed and are negative Physical Exam Vital Signs: Vital Signs: Last Vital Signs Temp 98.1 F 05/27/22 07:05 Pulse 68 05/27/22 07:05 Resp 14 05/27/22 07:05 BP 156/79 H 05/27/22 07:05 Pulse Ox 100 05/27/22 07:05 O2 Del Method 05/27/22 07:05 BMI result Body Mass Index 40.1 Gen: in no acute distress HEENT: sclera anicteric, moist mucus membranes Neck: supple Lungs: clear to auscultation bilaterally Heart: regular rate and rhythm, no murmurs Abd: soft, non-tender, non-distended, morbidly obese Ext: no edema Skin: warm/well-perfused Neuro: alert and oriented x3, no focal findings Psych: appropriate affect Objective Data Active Medications Acetaminophen (Acetaminophen 325 Mg Tablet) 650 mg PO Q6H PRN PRN Reason: Pain, Mild (Pain Scale 1-3) Docusate Sodium (Docusate Sodium 100 Mg Capsule) 100 mg PO DAILY PRN PRN Reason: Constipation Ceftriaxone Sodium 1 gm/ (Sodium Chloride) 50 mls @ 100 mls/hr IV BEDTIME [facility] Methadone HCl (Methadone Hcl 20 Mg/2 Ml Oral.Conc) 135 mg PO DAILY [facility] Last Admin: 05/27/22 09:56 Dose: 135 mg Documented By: VERO Ondansetron HCl (Ondansetron Hcl 4 Mg/2 Ml Vial) 4 mg IVPUSH Q8H PRN PRN Reason: Nausea and Vomiting Sodium Chloride (0.9 % Sodium Chloride Flush 3 Ml Syringe) 3 ml IVFLUSH QSHIFT [facility] Last Admin: 05/27/22 08:38 Dose: Not Given Documented By: VERO Non-Admin Reason: IV Running Labs CBC & Chem 7: 05/27/22 07:01 05/27/22 07:01 Labs: Laboratory Results - last 24 hr 05/26/22 05/26/22 05/26/22 20:51 20:51 20:51 MCV 87.9 MCH 29.4 MCHC 33.4 RDW 14.0 Plt Count 76 L D MPV 10.9 Immature Gran % (Auto) 0.2 Neut % (Auto) 51.4 Lymph % (Auto) 33.1 [place] % (Auto) 14.2 H Eos % (Auto) 0.7 Baso % (Auto) 0.4 Lymph # (Auto) 1.5 [place] # (Auto) 0.7 Eos # (Auto) 0.0 Baso # (Auto) 0.0 Abs Immat Gran (auto) 0.01 Absolute Neuts (auto) 2.4 Absolute Nucleated RBC 0.000 Nucleated RBC % (auto) 0.0 ESR PT INR Anion Gap 12 Estim Creat Clear Calc 148.0 Estimated GFR > 60 Random Glucose 123 H Lactic Acid 1.2 Calcium 8.2 L Magnesium 2.2 Total Bilirubin 0.6 AST 125 H ALT 65 H Alkaline Phosphatase 55 C-Reactive Protein 6.38 H Total Protein 7.6 Albumin 3.4 L Influenza Type A (PCR) Influenza Type B (PCR) RSV RNA Qual (PCR) SARS-CoV-2 RNA (RT-PCR) 05/26/22 05/26/22 05/26/22 20:51 20:51 20:52 MCV MCH MCHC RDW Plt Count MPV Immature Gran % (Auto) Neut % (Auto) Lymph % (Auto) [place] % (Auto) Eos % (Auto) Baso % (Auto) Lymph # (Auto) [place] # (Auto) Eos # (Auto) Baso # (Auto) Abs Immat Gran (auto) Absolute Neuts (auto) Absolute Nucleated RBC Nucleated RBC % (auto) ESR 37 H PT 14.8 H INR 1.3 H Anion Gap Estim Creat Clear Calc Estimated GFR Random Glucose Lactic Acid Calcium Magnesium Total Bilirubin AST ALT Alkaline Phosphatase C-Reactive Protein Total Protein Albumin Influenza Type A (PCR) NEGATIVE Influenza Type B (PCR) NEGATIVE RSV RNA Qual (PCR) NEGATIVE SARS-CoV-2 RNA (RT-PCR) NEGATIVE 05/27/22 05/27/22 07:01 07:01 MCV 89.5 MCH 29.9 MCHC 33.4 RDW 14.2 Plt Count 66 L MPV 11.0 Immature Gran % (Auto) 0.3 Neut % (Auto) 57.5 Lymph % (Auto) 27.9 [place] % (Auto) 12.9 H Eos % (Auto) 1.1 Baso % (Auto) 0.3 Lymph # (Auto) 1.0 L [place] # (Auto) 0.5 Eos # (Auto) 0.0 Baso # (Auto) 0.0 Abs Immat Gran (auto) 0.01 Absolute Neuts (auto) 2.2 Absolute Nucleated RBC 0.000 Nucleated RBC % (auto) 0.0 ESR PT INR Anion Gap 13 Estim Creat Clear Calc 165.0 Estimated GFR > 60 Random Glucose 85 Lactic Acid Calcium 7.9 L Magnesium Total Bilirubin AST ALT Alkaline Phosphatase C-Reactive Protein Total Protein Albumin Influenza Type A (PCR) Influenza Type B (PCR) RSV RNA Qual (PCR) SARS-CoV-2 RNA (RT-PCR) Assessment and Plan (1) Bacteremia: Status: Acute Plan d#2 41yo M recently seen in ED 05/25 with Covid-19 + lactic acidosis, called back for potential bacteremia # GPC bacteremia - on ceftriaxone pending speciation/susceptibilities, ID consult pending # thrombocytopenia - suspect due to Covid-19, recheck CBC in AM # OUD - screen HBV/HCV/HIV, resume home methadone 135 mg/d [[place] methadone [facility]] # recent Covid-19 infection - OMAYRA now negative # VTE ppx: SCDs # dispo: pending outcome of BCx In my clinical judgment, the patient requires continued inpatient hospitalization for the following reasons: bacteremia Time Spent With Patient Time: Total time managing care of this patient today _28___ minutes. Quality Stroke Does the patient have a stroke diagnosis?: No VTE Prior VTE?: No VTE Risk Level:: Medical - low VTE Device Contraindication: Treatment Not Indicated VTE Drug Contraindication: Treatment Not Indicated
[2022-05-27 10:47] VITALS: BP 145/82; PULSE 69; RESP 16; O2SAT 97
--- NOTE | 2022-05-27 14:47 | P.CNID_ITS ---
History of Present Illness Data of Consult Service Date: 05/27/22 Requesting physician: Meme Chapman Primary Care Provider: [facility] HPI Reason for consult: bacteremia He presents with chills for two days initially on 05/25/2022. He felt ill with COVID before that but recovered. He has Group B strep blood He uses IVDA wrists. Review of Systems Review of Systems: Yes all other systems are reviewed and are negative PMFSH Past Medical History Medical History Bacteremia due to group B Streptococcus IV drug user Family History Family History Other No family history of coronary artery disease Family history: reviewed and not pertinent Surgical History Surgical History No pertinent past surgical history Social History Social History Alcohol intake: current Alcohol intake frequency: does not drink Patient Tobacco Use Status: Current everyday Tobacco user Cigarette Packs Per Day: 1 Smoked in Last 30 Days: Yes Use of substances other than those prescribed or required for medical reasons: No Substance Use Type: IV Drugs and Opiates Advance Directives: No Advance Directives Information Provided: No service: No Current occupational status: employed Meds Allergies Allergy/AdvReac Type Severity Reaction Status Date / Time No Known Allergies Allergy Unverified 02/09/20 15:53 [No Known Allergies*] Active Medications: Current Medications Acetaminophen (Acetaminophen 325 Mg Tablet) 650 mg PO Q6H PRN PRN Reason: Pain, Mild (Pain Scale 1-3) Docusate Sodium (Docusate Sodium 100 Mg Capsule) 100 mg PO DAILY PRN PRN Reason: Constipation Ceftriaxone Sodium 1 gm/ (Sodium Chloride) 50 mls @ 100 mls/hr IV BEDTIME [facility] Methadone HCl (Methadone Hcl 20 Mg/2 Ml Oral.Conc) 135 mg PO DAILY [facility] Last Admin: 05/27/22 09:56 Dose: 135 mg Ondansetron HCl (Ondansetron Hcl 4 Mg/2 Ml Vial) 4 mg IVPUSH Q8H PRN PRN Reason: Nausea and Vomiting Sodium Chloride (0.9 % Sodium Chloride Flush 3 Ml Syringe) 3 ml IVFLUSH QSHIFT [facility] Last Admin: 05/27/22 08:38 Dose: Not Given Home Medications Medication Instructions Recorded Confirmed Last Taken Type methadone 10 mg/mL oral concentrate 135 mg PO DAILY 05/27/22 05/27/22 05/26/22 History Physical Exam Vital Signs: Vital Signs: Last Vital Signs Temp 98.1 F 05/27/22 07:05 Pulse 69 05/27/22 10:47 Resp 16 05/27/22 10:47 BP 145/82 H 05/27/22 10:47 Pulse Ox 97 05/27/22 10:47 O2 Del Method 05/27/22 10:47 BMI result Body Mass Index 40.1 Const: General: cooperative HEENT: Head: Yes normal to inspection Face and sinus: Yes normal facial exa m Mouth: Normal oral and palatal mucosa present Teeth and gingiva: dentition normal Eyes: General: appearance normal, both eyes and all related structures Pupils: Equal, round and reactive pupils present Resp: Effort & Inspection: normal respiratory effort Cardio: Rate: regular rate Rhythm: regular rhythm GI: Palpation (GI): Soft to palpation and nontender : General: Yes no CVA tenderness Back/Spine/Pelvis: Back: no CVA tenderness Skin: Other: healed track ferrara wrists,no cellulitis Neuro: General: moves all extremities Cranial nerves: Yes Equal, round and reactive pupils present Extrem: General: Yes normal to inspection Psych: Appearance: grossly normal Results Labs CBC & Chem 7: 05/27/22 07:01 05/27/22 07:01 Labs: Short CBC 05/26/22 05/27/22 Range/Units 20:51 07:01 WBC 4.6 L 3.7 L (4.8-10.8) X10*3/uL Hgb 10.4 L 10.0 L (14.0-18.0) g/dl Hct 31.1 L 29.9 L (42.0-52.0) % Plt Count 76 L D 66 L (160-400) X10*3/uL BMP 05/26/22 05/27/22 20:51 07:01 Sodium 137 137 Potassium 3.4 3.7 Chloride 104 106 Carbon Dioxide 24 22 BUN 19 H 16 Creatinine 0.87 0.78 Calcium 8.2 L 7.9 L Liver Function 05/26/22 Range/Units 20:51 Total Bilirubin 0.6 (0.0-1.0) mg/dL AST 125 H (5-37) U/L ALT 65 H (0-40) U/L Alkaline Phosphatase 55 (39-117) U/L Albumin 3.4 L (3.5-5.0) g/dL Assessment and Plan (1) Bacteremia due to group B Streptococcus: Status: Acute patient says he will leave today,doesnt want to stay He has Group B strep likely due to IVDU. Plan If echo unremarkable he leave on po Ceftin 500 mg bid for fourteen days. Check HIV and Hepatitis C as doing. Time Spent With Patient Time: Total time managing care of this patient today ____ minutes.
--- NOTE | 2022-05-27 15:10 | PM.DS ---
DS: Providers Provider Date of Service: 05/27/22 Date of admission: 05/26/22 23:17 Date of discharge: 05/27/22 Primary care physician: [facility] Consults: 05/26/22 23:17 Consult to Infectious Diseases Routine Consulting Provider: Deidra Walls Reason for consultation: Bacteremia, gram positive coci in chains. IVDU 05/27/22 06:07 Consult to Care Team Routine Comment: Reason for consultation: methadone DS: Diagnosis Discharge Diagnosis (1) Bacteremia due to group B Streptococcus: Status: Acute (2) IV drug user: Status: Acute (3) Opioid use disorder: Status: Acute (4) Thrombocytopenia: Status: Acute (5) Morbid obesity with body mass index (BMI) of 40.0 or higher: Status: Acute (6) Left against medical advice: Status: Acute DS: Summary Hospital Course Hospital Course: H+P by admitting hospitalist Erin Flaherty states: ?41-year-old male with past medical history of IV drug use presents to the hospital? after a positive blood culture.? Patient was seen in the hospital on 05/25 with respiratory symptoms, patient was diagnosed with COVID-19, bronchitis and sent home with doxycycline. ? patient also noted to have elevated lactic acid and febrile on 05/25.? Lactic acid resolved with IV fluids, patient was sent home.He was called back today from the ED for positive blood cultures.? Patient reports no symptoms at this time, he reports that he is feeling better.? Denies having fever, no chills, denies any chest pain, no palpitations, no abdominal pain nausea or vomiting, no diarrhea constipation, no urinary symptoms.? Reports no cough and no shortness of breath. ? patient does endorse injecting opioids ?arrival to the ED patient hemodynamically stable with no significant abnormal vitals except a slightly elevated blood pressure Labs are significant for WBC count of 4.6, hemoglobin of 10.4, hematocrit 31.1, ESR 37, CRP of 6.3, labs otherwise unremarkable, AST of 125, ALT of 65, was diagnosed with COVID-19 on 05/25 ? Blood cultures growing Gram-positive cocci in chains. ? Chest x-ray negative for acute findings He was admitted to the hospitalist service and given IV ceftriaxone. Home methadone was resumed. Platelet count was low at 76->66. Repeat Covid-19 OMAYRA negative and symptoms of Covid-19 had resolved. Blood culture from 05/25/22 grew Group B streptococcus. Unfortunately, the patient SIGNED OUT OF THE HOSPITAL AGAINST MEDICAL ADVICE despite counseling on the risks of incompletely worked up and treated infection as well as low platelet count. ID was consulted and he was given cefuroxime 500 mg bid x 14 days and counseled to return to the hospital as soon as possible. Time Spent with Patient Time attestation: Total time managing care of this patient today __35__ minutes. Discharge coordination time: Greater than 30 minutes Quality: Safe Use of Opioids Does Pt have an Active Cancer Diagnosis on the Problem List?: No Quality: Stroke Does the patient have a stroke diagnosis?: No Physical Exam Vital Signs: Vital Signs: Last Vital Signs Temp 98.1 F 05/27/22 07:05 Pulse 69 05/27/22 10:47 Resp 16 05/27/22 10:47 BP 145/82 H 05/27/22 10:47 Pulse Ox 97 05/27/22 10:47 O2 Del Method 05/27/22 10:47 BMI result Body Mass Index 40.1 Gen: in no acute distress HEENT: sclera anicteric, moist mucus membranes Neck: supple Lungs: clear to auscultation bilaterally Heart: regular rate and rhythm, no murmurs Abd: soft, non-tender, non-distended, morbid obesity Ext: no edema Skin: warm/well-perfused Neuro: alert and oriented x3, no focal findings Psych: appropriate affect DS: Data Data Completed and Pending Completed studies during hospitalization [Text1]: Laboratory Results WBC 3.7 X10*3/uL (4.8-10.8) L 05/27/22 07:01 RBC 3.34 X10*6/uL (4.60-5.80) L 05/27/22 07:01 Hgb 10.0 g/dl (14.0-18.0) L 05/27/22 07:01 Hct 29.9 % (42.0-52.0) L 05/27/22 07:01 MCV 89.5 fL (80.0-98.0) 05/27/22 07:01 MCH 29.9 pg (27.0-33.0) 05/27/22 07:01 MCHC 33.4 g/dl (31.0-36.0) 05/27/22 07:01 RDW 14.2 % (11.0-16.0) 05/27/22 07:01 Plt Count 66 X10*3/uL (160-400) L 05/27/22 07:01 MPV 11.0 fL (9.4-12.4) 05/27/22 07:01 Immature Gran % (Auto) 0.3 % (0.0-0.4) 05/27/22 07:01 Neut % (Auto) 57.5 % (45-73) 05/27/22 07:01 Lymph % (Auto) 27.9 % (20-40) 05/27/22 07:01 [place] % (Auto) 12.9 % (2-11) H 05/27/22 07:01 Eos % (Auto) 1.1 % (0-4) 05/27/22 07:01 Baso % (Auto) 0.3 % (0-2) 05/27/22 07:01 Lymph # (Auto) 1.0 X10*3/uL (1.2-4.9) L 05/27/22 07:01 [place] # (Auto) 0.5 X10*3/uL (0.1-1.2) 05/27/22 07:01 Eos # (Auto) 0.0 X10*3/uL (0.0-0.4) 05/27/22 07:01 Baso # (Auto) 0.0 X10*3/uL (0.0-0.2) 05/27/22 07:01 Abs Immat Gran (auto) 0.01 X10*3/uL (0.00-0.03) 05/27/22 07:01 Absolute Neuts (auto) 2.2 x10*3/uL (2.0-8.3) 05/27/22 07:01 Absolute Nucleated RBC 0.000 X10*3/uL (0.0-0.012) 05/27/22 07:01 Nucleated RBC % (auto) 0.0 /100WBC (0.0-0.2) 05/27/22 07:01 ESR 37 MM/HR (0-15) H 05/26/22 20:51 PT 14.8 SEC (10.0-13.1) H 05/26/22 20:52 INR 1.3 (0.9-1.1) H 05/26/22 20:52 Sodium 137 mmol/L (135-145) 05/27/22 07:01 Potassium 3.7 mmol/L (3.3-5.1) 05/27/22 07:01 Chloride 106 mmol/L (96-108) 05/27/22 07:01 Carbon Dioxide 22 mmol/L (22-29) 05/27/22 07:01 Anion Gap 13 (12-20) 05/27/22 07:01 BUN 16 mg/dL (9-16) 05/27/22 07:01 Creatinine 0.78 mg/dL (0.5-1.4) 05/27/22 07:01 Estim Creat Clear Calc 165.0 05/27/22 07:01 Estimated GFR > 60 05/27/22 07:01 Random Glucose 85 mg/dL (60-115) 05/27/22 07:01 Lactic Acid 1.2 mmol/L (0.5-2.0) 05/26/22 20:51 Calcium 7.9 mg/dL (8.4-10.2) L 05/27/22 07:01 Magnesium 2.2 mg/dL (1.6-2.6) 05/26/22 20:51 Total Bilirubin 0.6 mg/dL (0.0-1.0) 05/26/22 20:51 AST 125 U/L (5-37) H 05/26/22 20:51 ALT 65 U/L (0-40) H 05/26/22 20:51 Alkaline Phosphatase 55 U/L (39-117) 05/26/22 20:51 C-Reactive Protein 6.38 mg/dL (< or = 0.50) H 05/26/22 20:51 Total Protein 7.6 g/dL (6.5-8.0) 05/26/22 20:51 Albumin 3.4 g/dL (3.5-5.0) L 05/26/22 20:51 Influenza Type A (PCR) NEGATIVE (Negative) 05/26/22 20:51 Influenza Type B (PCR) NEGATIVE (Negative) 05/26/22 20:51 RSV RNA Qual (PCR) NEGATIVE (Negative) 05/26/22 20:51 SARS-CoV-2 RNA (RT-PCR) NEGATIVE (Negative) 05/26/22 20:51 Impressions Chest X-Ray 05/26/22 21:24 IMPRESSION: No acute findings Pending studies at discharge: HBV,HCV, and HIV serologies Blood cultures from 05/26/22 Discharge Plan Discharge Patient Disposition: Left Against Medical Advice Discharge Diagnosis: STREPTOCOCCAL BACTEREMIA LOW PLATELETS SIGNED OUT OF THE HOSPITAL AGAINST MEDICAL ADVICE Referrals: [facility] [Primary Care Provider] - 1 Week Discharge Medications: New cefuroxime axetil 500 mg tablet 500 mg PO BID Qty: 28 0RF No Action methadone 10 mg/mL Concentrate 135 mg PO DAILY Discharge Orders: Discharge Order (Routine); Ordered 05/27/22 Ordered By: Meme Chapman Diet: Advance to usual diet Activity on Discharge: As tolerated Care Plan Goals: definitive diagnosis and cure of infection Health Concerns: streptococcal bacteremia low platelets SIGNED OUT OF THE HOSPITAL AGAINST MEDICAL ADVICE Plan of Treatment: cefuroxime 500 mg twice daily for 14 days RETURN TO THE HOSPITAL SOON POSSIBLE FOR DEFINITIVE TREATMENT OF YOUR INFECTION AND WORKUP OF LOW PLATELET COUNT. FAILURE TO DO SO MAY RESULT IN WORSENING INFECTION, SEPSIS, DISABILITY, OR . Assessment: See Discharge Summary.
--- NOTE | 2022-05-27 15:10 | PC.NURSE ---
patient chose to leave MD ALFRED at bedside to give instructions, pt sent with rx to pharmacy for abx. IV removed, ambulated out of department with steady gait
--- NOTE | 2022-05-27 15:39 | MHC.CM.PN ---
Patient has left AMA.
== END 2022-05-27 16:00 | disposition left against medical advice (07) ==
LOC: HO.ED 05-27 00:44 → HO.EDOVER 05-27 00:51
PROVIDERS: Physician Assistant Medical; Admitting Provider Internal Medicine; Emergency Provider Internal Medicine; Visit Provider Family Medicine
DX: R78.81 Bacteremia (principal); B95.1 Streptococcus, group B, as the cause of diseases classified elsewhere; F19.10 Other psychoactive substance abuse, uncomplicated; F11.90 Opioid use, unspecified, uncomplicated; D69.6 Thrombocytopenia, unspecified; Z86.16 Personal history of COVID-19; E66.01 Morbid (severe) obesity due to excess calories; Z68.41 Body mass index [BMI] 40.0-44.9, adult; F17.200 Nicotine dependence, unspecified, uncomplicated; Z53.29 Procedure and treatment not carried out because of patient's decision for other reasons; Z20.828 Contact with and (suspected) exposure to other viral communicable diseases
CPT/HCPCS: 0241U; 36415; 71045; 80048; 80053; 83605; 83735; 85025; 85610; 85652; 86140; 87040; 96361; 96365; 96366; 96367; 99221; 99284; 99285; J0696; J3370

== ENCOUNTER 2022-11-07 12:59 | Emergency (ER) | payer MEDICAID, SELFPAY ==
--- NOTE | ~2022-11-07 | US_ITS ---
EXAMINATION: US VENOUS ULTRASOUND WITH DOPPLER LOWER EXTREMITY, RIGHT CLINICAL INFORMATION: Bilateral leg pain and swelling. COMPARISON: None available. TECHNIQUE: Ultrasound of the deep veins is performed from the hip to the calf with compression sonography and color and pulse Doppler assessment. Spectral analysis with color-flow imaging is performed. FINDINGS: There is normal venous compression and respiratory variation and augmented flow. The visualized common femoral vein, superficial femoral vein, profunda femoral vein, popliteal vein, and the trifurcation region shows no evidence of deep venous thrombosis. There is no significant popliteal fossa cyst. There are multiple bilateral prominent inguinal lymph nodes. The largest right inguinal lymph node measures 1.7 x 1 1.3 x 2.0 cm and 3.7 and 1.4 x 2.3 cm. It has normal lymph node architecture. Largest left inguinal lymph node measures 2.9 x 2.2 x 2.4 cm and 50.0 x 1.6 x 2.6 cm. The have benign characteristics by ultrasound.. If the patient's symptoms persist, followup ultrasound in 5 days 7 days might be of value to exclude proximal propagation from a non-visualized calf vein. US/US venous duplex LE RT IMPRESSION: No DVT demonstrated in the right lower extremity. Bilateral large inguinal lymph nodes with normal architecture by ultrasound.
--- NOTE | 2022-11-07 13:04 | ED_ITS ---
HPI - Skin/Abscess/Foreign Bdy General Chief complaint: Skin/Abscess/Foreign Body Stated complaint: Legs swollen, red and burden Time Seen by Provider: 11/07/22 13:31 Source: patient Mode of arrival: ambulatory Limitations: no limitations History of Present Illness HPI narrative: Patient is a 42 year old assigned male at with a history of IVDA now on methadone and chronically swollen lower legs presenting to the emergency department today with right lower leg swelling and pain. Patient states that over the last 2 days he has had worsening redness, swelling, and warmth to his right lower leg. Patient denies any dizziness, lightheadedness, abdominal pain, nausea, vomiting, fever, chills, blurry vision, double vision, loss of vision, chest pain, difficulty breathing, shortness of breath, back pain, night sweats, pain with urination, increased urinary frequency, increased urinary urgency, blood in his urine or stool, syncope or a near syncopal episode, recent trauma or falls, bowel incontinence, bladder incontinence, bowel retention, bladder retention, or any other complaints at this time. Onset (ago): day(s) (2) Location: RLE Severity: mild Severity scale (1-10): 3 Quality: dull Pain Consistency: constant Relieving factors: none Exacerbating factors: none Context: none Associated symptoms: denies other symptoms Treatments prior to arrival: none Related Data Home Medications Medication Instructions Recorded Confirmed methadone 10 mg/mL oral concentrate 135 mg PO DAILY 05/27/22 05/27/22 Previous Rx's Medication Instructions Recorded cephalexin 500 mg capsule 500 mg PO Q6H 7 days #28 caps 11/07/22 doxycycline hyclate 100 mg tablet 100 mg PO BID 7 days #14 tabs 11/07/22 Allergies Allergy/AdvReac Type Severity Reaction Status Date / Time No Known Allergies Allergy Unverified 02/09/20 15:53 [No Known Allergies*] Review of Systems Constitutional: Constitutional: Reports no additional constitutional complaints, Denies chills, Denies fever(s) and Denies night sweats Eyes: Eyes: Reports no additional eye complaints, Denies blurry vision, Denies change in vision, Denies diplopia, Denies eye discharge, Denies loss of vision a nd Denies eye pain ENT: Denies dizziness Cardiovascular: Cardiovascular: Reports no additional cardiovascular compla ints, Denies chest pain, Denies lightheadedness, Denies Loss of Consciousness and Denies dyspnea Respiratory: Respiratory: Reports no additional respiratory complaints and Denies dyspnea Gastrointestinal: Gastrointestinal: Reports no additional gastrointestinal complaints, Denies abdominal pain, Denies melena, Denies hematochezia, Denies change in bowel habits and Denies change in stool character Genitourinary: Genitourinary: Reports no additional male genitourinary complaints, Denies hematuria, Denies oliguria, Denies difficulty urinating, Denies dysuria, Denies urinary frequency, Denies urinary hesitancy, Denies urinary incontinence and Denies urinary urgency Musculoskeletal: Musculoskeletal: Reports no additional musculoskeletal complaints, Denies numbness and Denies tingling Comments: right lower leg swelling, pain, redness, and warmth Neurologic: Denies dizziness, Denies loss of vision, Denies numbness and Denies tingling Psychiatric: Psychiatric: Reports no additional psychiatric complaints Endocrine: Endocrine: Reports no additional endocrine complaints Hematologic/Lymphatic: Hematologic/Lymphatic: Reports no additional hematologic/lymphatic complaints Allergic/Immunologic: Allergic/Immunologic: Reports no additional allergic/immunologic complaints [facility] Past Medical History Attestation statement: The following information was validated with the patient. Source: old records reviewed and nursing notes reviewed Medical History Bacteremia due to group B Streptococcus IV drug user Left against medical advice Morbid obesity with body mass index (BMI) of 40.0 or higher Surgical History No pertinent past surgical history Family History Family History Other No family history of coronary artery disease Social History Social History Alcohol intake: current Alcohol intake frequency: does not drink Patient Tobacco Use Status: Current everyday Tobacco user Cigarette Packs Per Day: 1 Substance Use Type: IV Drugs and Opiates Advance Directives: No Advance Directives Information Provided: Yes service: No Current occupational status: employed Physical Exam Vital Signs: Vital Signs: Last Vital Signs Temp 98.5 F 11/07/22 13:05 Pulse 85 11/07/22 13:05 Resp 18 11/07/22 13:05 BP 156/88 H 11/07/22 13:05 Pulse Ox 97 11/07/22 13:05 O2 Del Method Room Air 11/07/22 13:05 BMI result Body Mass Index 45.2 Const: General: cooperative, no acute distress, alert and awake Nutritional Appearance: well nourished Orientation/consciousness: patient oriented x3 Limitations: no limitations HEENT: Head: Yes normal to inspection and Yes atraumatic Ears: hearing grossly normal bilaterally and external ears normal General nose exam: Normal external nose present, no nasal discharge noted and no epistaxis Face and sinus: Yes normal facial exam, No abrasion and No laceration Mouth: Normal oral and palatal mucosa present, no drooling and no muffled voice Eyes: General: appearance normal, both eyes and all related structures Periorbital: periorbital findings normal Eyelids: Yes eyelids normal Conjunctivae: conjunctivae normal Pupils: Equal, round and reactive pupils present EOM: EOMs intact bilaterally Neck: Neck: Yes normal visual inspection, Yes full ROM and Yes no lymphadenopathy Chest: Chest palpation & inspection: normal inspection of the chest Resp: Effort & Inspection: normal respiratory effort and able to speak in complete sentences GI: Inspection: Yes normal to inspection Neuro: General: patient oriented x3 and moves all extremities Cranial nerves: Yes Equal, round and reactive pupils present Cognition (Neuro): mario l cognition Motor exam (neuro): 5/5 motor strength present throughout Sensory Exam: Normal double simultaneous stimulation for sensation Coordination: [id number] test normal Extrem: Other: minimal redness, warmth, and swelling to the lateral aspect of the right lower leg. No fluctuance or obvious abscess appreciated. General: Yes full ROM and Yes capillary refill normal Psych: Appearance: grossly normal Mental Status: mental status grossly normal Affect: normal affect Attitude: cooperative Thought process: Normal thought process present Thought content: Normal thought content present Insight: Good insight present (Psych) Course Course Course Narrative: This is a rapid medical exam. Deferred additional HPI, ROS, PE to primary provider. 42 yo with history of IVDA (on methadone now, last use 2 days ago) here with complaints of 2 days of right leg swelling, redness, pain. Has chronic LE swelling bilaterally. No fevers, chills. Will check US, labs VSS Medical Decision Making Medical Decision Making MDM Narrative: Patient is a 42 year old assigned male at with a history of IVDA now on methadone and chronically swollen legs presenting to the emergency department today with right lower leg swelling. Patient's physical exam was as noted in the physical exam portion of this chart. Patient's blood work was unremarkable. Patient's right lower leg US showed no DVT but did show some swollen inguinal lymph nodes. I explained my physical exam findings as well as all test results to the patient. I answered all questions asked by the patient. I stressed the importance of the patient taking his medication as prescribed. I stressed the importance of the patient following up with his primary care provider. I stressed the importance of the patient returning to the emergency department im mediately if his symptoms were to worsen or if he were to develop any dizziness, shortness of breath, difficulty breathing, chest pain, blurry vision, loss of vision, nausea, vomiting, abdominal pain, fever, chills, back pain, or any other complaints. Patient verbalized agreement and understanding with this treatment plan and discharge. Differential Diagnosis Differential Diagnoses: The differential diagnosis associated with the presen tation includes right lower leg pain, right lower leg cellulitis Admission/Observation Consideration of admission/observation: Escalation of care including admission/observation considered Patient would have been admitted to the hospital had his work up had any findings where hospital admission was appropriate. Lab Data MDM Lab Attestation statement: I reviewed the patient's lab results. My interpretation of these studies and their corresponding values is that they are grossly normal. 11/07/22 13:22 11/07/22 13:22 Labs: Lab Results 11/07/22 11/07/22 11/07/22 Range/Units 13:22 13:22 13:56 WBC 4.7 L (4.8-10.8) X10*3/uL RBC 3.83 L (4.60-5.80) X10*6/uL Hgb 11.2 L (14.0-18.0) g/dl Hct 34.8 L (42.0-52.0) % MCV 90.9 (80.0-98.0) fL MCH 29.2 (27.0-33.0) pg MCHC 32.2 (31.0-36.0) g/dl RDW 14.1 (11.0-16.0) % Plt Count 74 L (160-400) X10*3/uL MPV 13.0 H (9.4-12.4) fL Immature Gran % (Auto) 1.1 H (0.0-0.4) % Neut % (Auto) 57.6 (45-73) % Lymph % (Auto) 25.7 (20-40) % [place] % (Auto) 13.3 H (2-11) % Eos % (Auto) 2.1 (0-4) % Baso % (Auto) 0.2 (0-2) % Lymph # (Auto) 1.2 (1.2-4.9) X10*3/uL [place] # (Auto) 0.6 (0.1-1.2) X10*3/uL Eos # (Auto) 0.1 (0.0-0.4) X10*3/uL Baso # (Auto) 0.0 (0.0-0.2) X10*3/uL Abs Immat Gran (auto) 0.05 H (0.00-0.03) X10*3/uL Absolute Neuts (auto) 2.7 (2.0-8.3) x10*3/uL Absolute Nucleated RBC 0.000 (0.0-0.012) X10*3/uL Nucleated RBC % (auto) 0.0 (0.0-0.2) /100WBC PT 14.0 H (10.0-13.1) SEC INR 1.2 H (0.9-1.1) Sodium 137 (135-145) mmol/L Potassium 4.0 (3.3-5.1) mmol/L Chloride 103 (96-108) mmol/L Carbon Dioxide 25 (22-29) mmol/L Anion Gap 13 (12-20) BUN 12 (9-16) mg/dL Creatinine 0.83 (0.5-1.4) mg/dL Estim Creat Clear Calc 163.8 Estimated GFR > 60 Random Glucose 149 H (60-115) mg/dL Calcium 9.2 D (8.4-10.2) mg/dL Total Bilirubin 0.9 (0.0-1.0) mg/dL Direct Bilirubin 0.3 (0.0-0.5) mg/dL AST 77 H (5-37) U/L ALT 56 H (0-40) U/L Alkaline Phosphatase 74 (39-117) U/L Total Protein 8.3 H (6.5-8.0) g/dL Albumin 3.3 L (3.5-5.0) g/dL Independent Interpretation I performed an independent interpretation of an: Ultrasound Interpretation: My interpretation is in agreement with the radiologist's impression of this imaging study. ----- EXAMINATION:? US VENOUS ULTRASOUND WITH DOPPLER LOWER EXTREMITY, RIGHT CLINICAL INFORMATION:? Bilateral leg pain and swelling. COMPARISON:? None available. TECHNIQUE: Ultrasound of the deep veins is performed from the hip to the calf with compression sonography and color and pulse Doppler assessment. Spectral analysis with color-flow imaging is performed. FINDINGS: There is normal venous compression and respiratory variation and augmented flow. The visualized common femoral vein, superficial femoral vein, profunda femoral vein, popliteal vein, and the trifurcation region shows no evidence of deep venous thrombosis. ? There is no significant popliteal fossa cyst. There are multiple bilateral prominent inguinal lymph nodes. The largest right inguinal lymph node measures 1.7 x 1 1.3 x 2.0 cm and 3.7 and 1.4 x 2.3 cm. It has normal lymph node architecture. Largest left inguinal lymph node measures 2.9 x 2.2 x 2.4 cm and 50.0 x 1.6 x 2.6 cm. The have benign characteristics by ultrasound.. If the patient's symptoms persist, followup ultrasound in 5 days 7 days might be of value to exclude proximal propagation from a non-visualized calf vein. US/US venous duplex LE RT IMPRESSION: No DVT demonstrated in the right lower extremity. ? Bilateral large inguinal lymph nodes with normal architecture by ultrasound. Dictated By: Ayan Haney MD Signed By: Electronically signed by Ayan Haney MD 11/07/22 [id number] Prescription Management I considered prescription management with: Antibiotic (patient discharged with antibiotic prescription) Chronic Conditions Patient?s care impacted by: Other (Hx of IVDA) Discharge Plan Discharge Clinical Impression: Cellulitis Patient Disposition: Home, Self-Care Instructions: Cellulitis (DC) Additional Instructions: Follow up with your primary care provider. Return to the emergency department immediately if your symptoms worsen or if you develop any dizziness, shortness of breath, difficulty breathing, chest pain, blurry vision, loss of vision, nausea, vomiting, abdominal pain, fever, chills, back pain, or any other complaints. Prescriptions: New cephalexin 500 mg capsule 500 mg PO Q6H 7 Days Qty: 28 0RF doxycycline hyclate 100 mg tablet 100 mg PO BID 7 Days Qty: 14 0RF No Action methadone 10 mg/mL Concentrate 135 mg PO DAILY Referrals: [facility] Family [facility] [Provider Group] (Call to establish and follow up with a [facility] care provider. If you already have a primary care provider, please follow up with them.) [facility] [Provider Group] (Call to establish and follow up with a primary care provider. If you already have a primary care provider, please follow up with them.) [facility] [Provider Group] (Call to establish and follow up with a primary care provider. If you already have a primary care provider, please follow up with them.) Interventions: ED Discharge Assessment Last Done: 11/07/22 15:37 Discharge Date/Time: 11/07/22 15:38 Print Language: Serbian
[2022-11-07 13:05] VITALS: BP 156/88; PULSE 85; RESP 18; TEMP 36.9; O2SAT 97; BMI 45.2
[2022-11-07 13:41] LABS: INTERNATIONAL NORM RATIO 1.2 (0.9-1.1)
[2022-11-07 13:45] LABS: Alanine Aminotransferase 56 U/L (0-40); Albumin Level 3.3 g/dL (3.5-5.0); Alkaline Phosphatase 74 U/L (39-117); Anion Gap 13 (12-20); Aspartate Amino Transferase 77 U/L (5-37); Bilirubin Direct 0.3 mg/dL (0.0-0.5); Bilirubin Total 0.9 mg/dL (0.0-1.0); Blood Urea Nitrogen 12 mg/dL (9-16); Calcium 9.2 mg/dL (8.4-10.2); Carbon Dioxide 25 mmol/L (22-29); Chloride 103 mmol/L (96-108); Creatinine Clr Calc Pharmacy 163.8; Estimated Glomerular Filt Rate > 60; Glucose Random 149 mg/dL (60-115); Sodium 137 mmol/L (135-145); Total Protein 8.3 g/dL (6.5-8.0)
[2022-11-07 14:04] LABS: Basophils Percent Auto 0.2 % (0-2); Eosinophils Absolute Auto 0.1 X10*3/uL (0.0-0.4); Eosinophils Percent Auto 2.1 % (0-4); Hematocrit 34.8 % (42.0-52.0); Hemoglobin 11.2 g/dl (14.0-18.0); Imm Gran Abs Auto 0.05 X10*3/uL (0.00-0.03); Imm Gran Pct Auto 1.1 % (0.0-0.4); Lymphocytes Absolute Auto 1.2 X10*3/uL (1.2-4.9); Lymphocytes Percent Auto 25.7 % (20-40); Mean Corpuscular HGB Conc 32.2 g/dl (31.0-36.0); Mean Corpuscular Hemoglobin 29.2 pg (27.0-33.0); Mean Corpuscular Volume 90.9 fL (80.0-98.0); Monocytes Absolute Auto 0.6 X10*3/uL (0.1-1.2); Monocytes Percent Auto 13.3 % (2-11); Neutrophils Absolute Auto 2.7 x10*3/uL (2.0-8.3); Neutrophils Percent Auto 57.6 % (45-73); Red Blood Count 3.83 X10*6/uL (4.60-5.80); Red Cell Distribution Width 14.1 % (11.0-16.0); White Blood Count 4.7 X10*3/uL (4.8-10.8)
[2022-11-07 14:05] LABS: Platelet Count 74 X10*3/uL (160-400)
== END 2022-11-07 15:38 | disposition home or self-care (01) ==
PROVIDERS: Nurse Practitioner Family; Emergency Provider Emergency Medicine
DX: L03.115 Cellulitis of right lower limb (principal); L03.116 Cellulitis of left lower limb; R60.0 Localized edema; Z79.899 Other long term (current) drug therapy
CPT/HCPCS: 36415; 80048; 80076; 85025; 85610; 93971; 99283; 99284

== ENCOUNTER 2023-04-18 07:41 | Emergency (ER) | payer MEDICAID, SELFPAY ==
--- NOTE | ~2023-04-18 | XR_ITS ---
EXAMINATION: XR TIBIA AND FIBULA, RIGHT CLINICAL INFORMATION: Wound. COMPARISON: None available. TECHNIQUE: AP and lateral views of the right tibia and fibula were obtained. FINDINGS: No fracture or bony abnormality. No osseous lesions. There is soft tissue hyperdensity along the lateral lower leg corresponding to the wound. XR/XR tibia fibula RT 2V IMPRESSION: Soft tissue hypodensity along the lateral lower leg corresponding to the wound. No underlying bony abnormality. No radiopaque foreign body seen.
[2023-04-18 07:42] VITALS: BP 152/81; PULSE 86; RESP 16; TEMP 37.3; O2SAT 94; BMI 46.6
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
[2023-04-18 08:22] LABS: MANUAL DIFF FLAG NO
[2023-04-18 08:23] LABS: Basophils Percent Auto 0.2 % (0-2); Eosinophils Absolute Auto 0.1 X10*3/uL (0.0-0.4); Eosinophils Percent Auto 1.9 % (0-4); Hematocrit 33.7 % (42.0-52.0); Hemoglobin 11.2 g/dl (14.0-18.0); Imm Gran Abs Auto 0.01 X10*3/uL (0.00-0.03); Imm Gran Pct Auto 0.2 % (0.0-0.4); Lymphocytes Absolute Auto 1.6 X10*3/uL (1.2-4.9); Lymphocytes Percent Auto 33.2 % (20-40); Mean Corpuscular HGB Conc 33.2 g/dl (31.0-36.0); Mean Corpuscular Hemoglobin 28.4 pg (27.0-33.0); Mean Corpuscular Volume 85.5 fL (80.0-98.0); Mean Platelet Volume 11.4 fL (9.4-12.4); Monocytes Absolute Auto 0.5 X10*3/uL (0.1-1.2); Monocytes Percent Auto 9.7 % (2-11); Neutrophils Absolute Auto 2.6 x10*3/uL (2.0-8.3); Neutrophils Percent Auto 54.8 % (45-73); Red Blood Count 3.94 X10*6/uL (4.60-5.80); Red Cell Distribution Width 14.8 % (11.0-16.0); White Blood Count 4.8 X10*3/uL (4.8-10.8)
[2023-04-18 08:24] LABS: Platelet Count 95 X10*3/uL (160-400)
[2023-04-18 08:37] LABS: Alanine Aminotransferase 65 U/L (0-40); Albumin Level 3.3 g/dL (3.5-5.0); Alkaline Phosphatase 73 U/L (39-117); Anion Gap 12 (12-20); Aspartate Amino Transferase 87 U/L (5-37); Bilirubin Total 0.6 mg/dL (0.0-1.0); Blood Urea Nitrogen 15 mg/dL (9-16); C Reactive Protein 2.26 mg/dL (< or = 0.50); Calcium 8.7 mg/dL (8.4-10.2); Carbon Dioxide 24 mmol/L (22-29); Chloride 105 mmol/L (96-108); Creatinine Clr Calc Pharmacy 129.2; Estimated Glomerular Filt Rate > 60; Glucose Random 159 mg/dL (60-115); Potassium 3.7 mmol/L (3.3-5.1); Sodium 137 mmol/L (135-145)
[2023-04-18 09:10] LABS: Erythrocyte Sedimentation Rate 42 MM/HR (0-15)
[2023-04-18] MEDS: Doxycycline Monohydrate 100 MG CAPSULE PO (09:23)
[2023-04-18] MEDS: cephALEXin 500 MG CAPSULE PO (09:23)
== END 2023-04-18 09:58 | disposition home or self-care (01) ==
PROVIDERS: Emergency Provider Emergency Medicine
DX: D69.6 Thrombocytopenia, unspecified (principal); L98.492 Non-pressure chronic ulcer of skin of other sites with fat layer exposed; F19.10 Other psychoactive substance abuse, uncomplicated; F11.20 Opioid dependence, uncomplicated; F17.210 Nicotine dependence, cigarettes, uncomplicated; E66.9 Obesity, unspecified; Z68.42 Body mass index [BMI] 45.0-49.9, adult
CPT/HCPCS: 36415; 73590; 80053; 85025; 85652; 86140; 87040; 99283; 99284

== ENCOUNTER 2023-04-30 14:32 | Outpatient (AMB) | payer MEDICAID, SELFPAY ==
[2023-04-30 14:33] VITALS: BP 129/71; PULSE 67; BMI 46.2
--- NOTE | 2023-04-30 14:33 | A.OFFVIS_ITS ---
Intake Vital Signs 04/30/23 14:33 Height 5 ft 10 in Weight 322 lb BMI 46.2 BP 129/71 Blood Pressure Location Rt brachial Position Sitting Pulse 67 Intake Visit Reasons: Wound on R Leg No Injury Intake Note: This patient presents for [facility] [place] follow-up for non-healing wounds right leg, no injury. Patient c/o; reports non-healing wound right leg. Barrel Header Required: No Accompanied by: Other Relationship Allergies No Known Allergies [No Known Allergies*] Allergy (Verified 04/30/23 14:43) Medication List - Last Reconciled 04/30/23 by Joshua Chen MD cephalexin 500 mg PO Q6H 7 days cephalexin 500 mg PO QID 10 days doxycycline hyclate 100 mg PO BID 7 days doxycycline hyclate 100 mg PO BID 10 days methadone 135 mg PO DAILY HPI Wound on R Leg No Injury HPI Details 42-year-old male referred for a wound on the right leg. He says that he had noticed this about 6 weeks ago. He says that this was small at that time. Over the past few weeks, the Wound Service has increased. He says that at some point in the beginning, he had noted some pus as well. He went to the ER last week because of this nonhealing wound and he was referred to me. He says that he had been on antibiotics from then this has been comple quang. He denies any trauma or insect bite to the area. He denies diabetes. [facility] Medical History Left against medical advice Morbid obesity with body mass index (BMI) of 40.0 or higher Bacteremia due to group B Streptococcus IV drug user Surgical History No pertinent past surgical history Family History Other No family history of coronary artery disease Social History Alcohol intake: current Alcohol intake frequency: does not drink Patient Tobacco Use Status: Current everyday Tobacco user Cigarette Packs Per Day: 1 Substance Use Type: Heroin service: No Current occupational status: employed Review of Systems Const Denies chills and Denies fever(s) Card Denies chest pain, Denies dyspnea and Denies dyspnea on exertion Resp Denies cough, Denies dyspnea and Denies dyspnea on exertion GI Denies hematochezia and Denies change in bowel habits Denies hematuria and Denies difficulty urinating Musc Denies back pain and Denies limited range of motion Neuro Denies focal weakness and Denies convulsions Psych Denies depression and Denies mood swings Physical Exam Const Other: Morbidly obese General: comfortable and no acute distress Orientation/consciousness: patient oriented x3 Neck Neck: Yes no lymphadenopathy Resp Auscultation: clear to auscultation bilaterally Cardio Rhythm: regular rhythm GI Palpation (GI): Soft to palpation, nontender and no guarding Neuro General: patient oriented x3 Extrem Other: Chronic trophic changes on both lower legs, with varicosities seen; on the right lower on the anterior lateral surface is note of an ulcer, measuring about 8 cm in this dimension by about 5 cm across, with clean granulation tissue, skin darkening in the area from trophic changes, no gangrene or nonviable tissue Assessment & Plan Assessment & Plan (1) Wound of right leg: Code(s): S81.801A - Unspecified open wound, right lower leg, initial encounter Plan: He has a leg ulcer as described above. Poor healing is probably secondary to venous stasis to varicose veins. I have changed dressings. I will send him to the Wound Clinic for opinion with regards to best wound care regimen. I emphasized to him the importance of good wound care. He presented this may take a long time to heal. He can otherwise see me back on a p.r.n. basis. He says he understands the plan above. Orders: Referrals Wound Care Referral S81.801A - Unspecified open wound, right lower leg, initial encounter Coding Level of Care Code New Pt Level 3 (97867) Diagnoses Wound of right leg S81.801A
== END 2023-04-30 15:04 | disposition home or self-care (01) ==
PROVIDERS: PCP Family Medicine; Visit Provider Surgery
DX: S81.801A Unspecified open wound, right lower leg, initial encounter (principal)
CPT/HCPCS: 99203

== ENCOUNTER → 2023-04-30 14:32 | Outpatient (BNVA) | payer MEDICAID, SELFPAY | PROVIDERS: PCP Family Medicine; Visit Provider Surgery | DX: S81.801A Unspecified open wound, right lower leg, initial encounter (principal) | CPT/HCPCS: 99202 ==

== ENCOUNTER 2024-01-28 13:47 | Outpatient (AMB) | payer MEDICAID, SELFPAY ==
--- NOTE | 2024-01-28 13:51 | A.OFFVIS_ITS ---
Vital Signs 01/28/24 13:54 Height 5 ft 10 in Weight 322 lb 0.009 oz BMI 46.2 Intake Visit Reasons: Wound of right lower leg Intake Note: This patient presents for wound of the right lower leg. Pt c/o; reports no complaints. Family Living Educator Required: No Accompanied by: Self / Same As Patient Allergies No Known Allergies [No Known Allergies*] Allergy (Verified 01/28/24 13:55) Medication List - Last Reconciled 01/28/24 by Joshua Chen MD cephalexin 500 mg PO Q6H 7 days cephalexin 500 mg PO QID 10 days doxycycline hyclate 100 mg PO BID 7 days doxycycline hyclate 100 mg PO BID 10 days methadone 135 mg PO DAILY HPI HPI Wound of right lower leg: Details: He is here for follow-up for his open wound on the right lower leg. This was deemed to be secondary to a venous stasis ulcer.. He has been following with the Wound Clinic. It has been noted that the ulcer has been healing. However, he did state that he was hoping for a more rapid healing so he was referred for possible skin grafting He otherwise feels much better. He denies any significant complaints. He says that the wound has been steadily healing. PFSH Medical History Leg ulcer Left against medical advice Morbid obesity with body mass index (BMI) of 40.0 or higher Bacteremia due to group B Streptococcus IV drug user Surgical History No pertinent past surgical history Family History Other No family history of coronary artery disease Social History Alcohol intake: current Alcohol intake frequency: does not drink Patient Tobacco Use Status: Current everyday Tobacco user Cigarette Packs Per Day: 1 Substance Use Type: Heroin service: No Current occupational status: employed Review of Systems Const Denies chills and Denies fever(s) Card Denies chest pain, Denies dyspnea and Denies dyspnea on exertion Resp Denies cough, Denies dyspnea and Denies dyspnea on exertion GI Denies hematochezia and Denies change in bowel habits Denies hematuria and Denies difficulty urinating Musc Denies back pain and Denies limited range of motion Neuro Denies focal weakness and Denies convulsions Psych Denies depression and Denies mood swings Physical Exam Vital Signs: BMI result Body Mass Index 46.2 Const Other: Morbidly obese General: comfortable and no acute distress Orientation/consciousness: patient oriented x3 Neck Neck: Yes no lymphadenopathy Resp Auscultation: clear to auscultation bilaterally Cardio Rhythm: regular rhythm GI Palpation (GI): Soft to palpation, nontender and no guarding Neuro General: patient oriented x3 Extrem Other: Right lower leg with dressings, patient says he just applied his dressings he did not want this to be taken down now Assessment & Plan Assessment & Plan (1) Leg ulcer: Code(s): L97.909 - Non-pressure chronic ulcer of unspecified part of unspecified lower leg with unspecified severity Category: Medical Plan: I am familiar with him for his right lower leg ulcer. He is following the Wound Clinic for this and this seems to be have been improving steadily. However, he did state that he was hoping there would be a quicker healing. He was therefore referred to me for possible skin grafting Patient at this time does not want me to take down his dressings. I did explain to him that it was important for me to be able to examined this before scheduling for a wound grasped He says he is doing well overall. He said he will call the office for a follow-up once he is ready to have this examined. Coding Level of Care Code Est Pt Level 3 (21930) Diagnoses Leg ulcer L97.909
[2024-01-28 13:54] VITALS: BMI 46.2
== END 2024-01-28 14:15 | disposition home or self-care (01) ==
PROVIDERS: PCP Family Medicine; Referring Provider Family Medicine; Visit Provider Surgery
DX: L97.909 Non-pressure chronic ulcer of unspecified part of unspecified lower leg with unspecified severity (principal)
CPT/HCPCS: 99213

== ENCOUNTER → 2024-01-28 13:47 | Outpatient (BNVA) | payer MEDICAID, SELFPAY | PROVIDERS: PCP Family Medicine; Visit Provider Surgery | DX: L97.919 Non-pressure chronic ulcer of unspecified part of right lower leg with unspecified severity (principal) | CPT/HCPCS: 99212 ==

== ENCOUNTER 2024-02-15 08:51 | Emergency (ER) | payer MEDICAID, SELFPAY ==
--- NOTE | ~2024-02-15 | XR_ITS ---
EXAMINATION: XR KNEE, LEFT CLINICAL INFORMATION: Knee injury COMPARISON: None available. TECHNIQUE: Four views of the left knee. FINDINGS: A small joint effusion may be present. No fracture is seen. Alignment is anatomic. Joint spaces are maintained. No abnormal soft tissue calcification. XR/XR knee LT 4V IMPRESSION: A small joint effusion may be present. Electronically signed by: Camilo Posadas MD 02/15/2024 11:23 AM EDT
[2024-02-15 09:27] VITALS: BP 159/54; PULSE 80; RESP 16; TEMP 36.6; O2SAT 95; BMI 47.5
--- NOTE | 2024-02-15 11:46 | ED_ITS ---
HPI - Extremity Injury (Lower) General Chief Complaint: Extremity Injury, Lower Stated Complaint: l knee pain Time Seen by Provider: 02/15/24 11:41 Source: patient Mode of arrival: ambulatory Limitations: no limitations History of Present Illness ED Provider: MANDA RG PA-C HPI Narrative: 43-year-old male with past medical history significant for IV drug use, thrombocytopenia presents to the ED today for evaluation of atraumatic left knee pain x1 week. He states that 7 days ago he fell onto left knee with residual left knee pain. Has been able to walk on the he and he felt his left knee was tweaked ; twisting the knee with the foot straight while she was leaning on him. Did not lose balance or fall. No head strke or LOC. Not on AC. Again tried Motrin without success, opted to stop trial and come for eval. Denies fever, chills, N/V, numbness/tingling/weakness of the lower extremity. No tick or insect bites. Related Data Home Medications ?Medication ?Instructions ?Recorded ?Confirmed methadone 10 mg/mL oral concentrate 135 mg PO DAILY 05/27/22 01/28/24 Previous Rx's ?Medication ?Instructions ?Recorded cephalexin 500 mg capsule 500 mg PO Q6H 7 days #28 caps 11/07/22 doxycycline hyclate 100 mg tablet 100 mg PO BID 7 days #14 tabs 11/07/22 cephalexin 500 mg capsule 500 mg PO QID 10 days #40 caps 04/18/23 doxycycline hyclate 100 mg capsule 100 mg PO BID 10 days #20 caps 04/18/23 tramadol 50 mg tablet 50 mg PO Q8H PRN pain (scale score 02/15/24 4-6) #5 tabs Allergies Allergy/AdvReac Type Severity Reaction Status Date / Time No Known Allergies Allergy Verified 02/15/24 09:29 [No Known Allergies*] Review of Systems Review of Systems: Constitutional: No fever, chills, fatigue, night sweats, weight changes ENT/Mouth: No ear pain, hearing loss, nasal congestion, sinus pain, rhinorrhea, sore throat Eyes: No eye pain, swelling, redness, vision changes, discharge Cardio: No chest pain, palpitations, ZEPEDA, orthopnea, peripheral edema Pulm: No SOB, cough, sputum, wheezing, dyspnea, hemoptysis GI: No nausea, vomiting, hematemesis, abdominal pain, diarrhea, constipation, hematochezia, melena : No irregular bleeding, dysuria, frequency, urgency, hesitancy, hematuria, flank pain, urinary flow changes, urinary incontinence or retention MSK: No back pain, neck pain, joint pain, myalgias, +left knee pain Skin: No lesions, rashes Neuro: No weakness, numbness, paresthesias, LOC, dizziness, headache Psych: No anxiety/panic, depression, SI/HI, AH/VH All other systems reviewed and are negative. [facility] Past Medical History Attestation statement: The following information was validated with the patient. Source: old records reviewed and nursing notes reviewed Medical History Leg ulcer Left against medical advice Morbid obesity with body mass index (BMI) of 40.0 or higher Bacteremia due to group B Streptococcus IV drug user Surgical History No pertinent past surgical history Family History Family History Other No family history of coronary artery disease Social History Social History Alcohol intake: current Alcohol intake frequency: does not drink Patient Tobacco Use Status: Current everyday Tobacco user Cigarette Packs Per Day: 1 Substance Use Type: Heroin Advance Directives: No Advance Directives Information Provided: No service: No Current occupational status: employed Physical Exam Vital Signs: Vital Signs: Last Vital Signs Temp 98 F 02/15/24 09:27 Pulse 80 02/15/24 09:27 Resp 16 02/15/24 09:27 BP 159/54 H 02/15/24 09:27 Pulse Ox 95 02/15/24 09:27 O2 Del Method Room Air 02/15/24 09:27 BMI result Body Mass Index 47.5 Hypertensive to 159/54, vitals otherwise wnl General: Well appearing, in no acute distress. Skin: Warm, dry, intact. No rashes or lesions. Head: Normocephalic, atraumatic. EENT: Hearing is intact b/l. Conjunctiva clear. Sclera is anicteric. PERRLA. EOM intact. Moist mucous membranes. Cardiac: Chest wall symmetric. RRR Lungs: Normal respiratory effort without accessory muscle use Ext: +no noted swelling to left knee. No overlying skin changes or deformity. Slightly tender to palpation over anterior knee without palpable deformity, warmth, crepitus. Full ROM intact to left knee with some discomfort on flexion. Ambulating with steady gait. 2+ PT/DP pulse intact. Neuro: AOx3. Normal speech. Psych: Appropriate mood and affect. Responds appropriately to questions. Course Course Course Narrative: 1225 -- x-ray shows small joint effusion without evidence of fracture. Alignment is normal. No evidence of dislocation. Consistent with exam findings. Franck wrap applied to left knee. Patient provided with crutches for comfort. Educated on RICE therapy. Patient has remained stable throughout ED visit today. Discussed worrisome signs and symptoms and when to return to the ED. All questions answered at this time. Patient is agreeable with disposition and stable for discharge. Medical Decision Making Medical Decision Making MDM Narrative: 43-year-old male with past medical history significant for IV drug use, thrombocytopenia presents to the ED today for evaluation of atraumatic left knee pain x1 week. Patient hypertensive to 159/54, vitals otherwise WNL. He is nontoxic-appearing and in no acute distress. On exam, no noted swelling to left knee. No overlying skin changes or deformity. Slightly tender to palpation over anterior knee without palpable deformity, warmth, crepitus. Full ROM intact to left knee with some discomfort on flexion. Ambulating with steady gait. 2+ PT/DP pulse intact. Differential diagnosis includes MSK sprain/strain, contusion, fracture. Lower suspicion for dislocation. Presentation not consistent with DVT, Felder's cyst, gout, pseudogout, septic or Lyme arthritis, neurovascular compromise, threat to limb, compartment syndrome. Plan for imaging, pain control, re-evaluation. Differential Diagnosis Differential Diagnoses: The differential diagnosis associated with the presentation includes As above Admission/Observation Not indicated Independent Interpretation I performed an independent interpretation of an: Plain X-Ray Interpretation: X-ray left knee without fracture, small joint effusion, agree with radiologist's interpretation. Radiology Impression Discussion of test interpretation with radiology: I have reviewed the radiol ogist's reading. Radiologist Impression: EXAMINATION: XR KNEE, LEFT CLINICAL INFORMATION: Knee injury COMPARISON: None available. TECHNIQUE: Four views of the left knee. FINDINGS: A small joint effusion may be present. No fracture is seen. Alignment is anatomic. Joint spaces are maintained. No abnormal soft tissue calcification. XR/XR knee LT 4V IMPRESSION: A small joint effusion may be present. Electronically signed by: Camilo Posadas MD 02/15/2024 11:23 AM EDT RP External Record Review External record reviewed: Inpatient record Prescription Management I considered prescription management with: Pain Medication (Tylenol, Motrin, tramadol) Chronic Conditions Patient?s care impacted by: Other (IVDU) Social Determinants Patient?s care significantly limited by Social Determinants of Health including: Other Social Determinant of Health Procedures Orthopedic Splinting/Casting Injury #1: Side: left Lower Extremity Injury Location: knee Lower Extremity Immobilizer: Rfanck wrap Other Orthopedic Equipment: crutches Critical Care Time Critical Care Time Critical Care Time: No Discharge Plan Discharge Clinical Impression: Left knee sprain, Effusion of left knee Patient Disposition: Home, Self-Care Instructions: Crutch Instructions (ED), How to Use an Elastic Bandage (ED), Swollen Knee Joint (ED) Additional Instructions: The x-ray of your left knee shows small knee effusion. You were provided with an Franck wrap to help with compression along with crutches. You may bear weight on your left leg as tolerated. Continue with RICE treatment at home - rest, ice, compress, elevate the left knee I recommend you take 600mg ibuprofen every 6 hours or Tylenol 650mg every 6 hours as needed for pain. If needed, you can alternate these medications so that you take one medication every 3 hours. For example, at noon take ibuprofen, then at 3pm take Tylenol, then at 6pm take ibuprofen. Tramadol is a controlled pain medication that has been sent to your pharmacy for you to take as needed for breakthrough pain. Follow-up with PCP as needed. If pain continues, you may follow-up with orthopedic doctor. A referral has been provided to you. You may call them to make an appointment. Return with new or worsening symptoms. In the case of an emergency call 911. Prescriptions: New tramadol 50 mg tablet 50 mg PO Q8H PRN (Reason: pain (scale score 4-6)) Qty: 5 0RF No Action methadone 10 mg/mL Concentrate 135 mg PO DAILY cephalexin 500 mg capsule 500 mg PO Q6H 7 Days Qty: 28 0RF doxycycline hyclate 100 mg tablet 100 mg PO BID 7 Days Qty: 14 0RF doxycycline hyclate 100 mg capsule 100 mg PO BID 10 Days Qty: 20 0RF cephalexin 500 mg capsule 500 mg PO QID 10 Days Qty: 40 0RF Referrals: [facility] [place] [facility] [Provider Group] [facility] [place] [facility] [Provider Group] [facility] [place] [facility] [Provider Group] Print Language: Panamanian
[2024-02-15 12:47] VITALS: BP 159/54; PULSE 80; RESP 16; TEMP 36.6; O2SAT 95
== END 2024-02-15 12:47 | disposition home or self-care (01) ==
PROVIDERS: Emergency Provider Emergency Medicine Emergency Medical Services; PCP Family Medicine
DX: S83.92XA Sprain of unspecified site of left knee, initial encounter (principal); X58.XXXA Exposure to other specified factors, initial encounter; Y93.89 Activity, other specified; Y92.9 Unspecified place or not applicable; Y99.9 Unspecified external cause status; M25.562 Pain in left knee
CPT/HCPCS: 73564; 99282; 99283

== ENCOUNTER 2024-03-02 08:14 | Outpatient (REF) | payer MEDICAID, SELFPAY ==
[2024-03-02 08:38] LABS: MANUAL DIFF FLAG NO
[2024-03-02 08:53] LABS: Basophils Percent Auto 0.4 % (0-2); Eosinophils Absolute Auto 0.1 X10*3/uL (0.0-0.4); Eosinophils Percent Auto 1.3 % (0-4); Hematocrit 33.5 % (42.0-52.0); Hemoglobin 11.1 g/dl (14.0-18.0); Imm Gran Abs Auto 0.01 X10*3/uL (0.00-0.03); Imm Gran Pct Auto 0.2 % (0.0-0.4); Lymphocytes Absolute Auto 1.3 X10*3/uL (1.2-4.9); Lymphocytes Percent Auto 23.7 % (20-40); Mean Corpuscular HGB Conc 33.1 g/dl (31.0-36.0); Mean Corpuscular Volume 84.4 fL (80.0-98.0); Mean Platelet Volume 10.3 fL (9.4-12.4); Monocytes Absolute Auto 0.5 X10*3/uL (0.1-1.2); Monocytes Percent Auto 9.8 % (2-11); Neutrophils Absolute Auto 3.4 x10*3/uL (2.0-8.3); Neutrophils Percent Auto 64.6 % (45-73); Red Blood Count 3.97 X10*6/uL (4.60-5.80); White Blood Count 5.3 X10*3/uL (4.8-10.8)
[2024-03-02 08:54] LABS: Platelet Count 96 X10*3/uL (160-400)
[2024-03-02 09:34] LABS: Alanine Aminotransferase 106 U/L (0-40); Albumin Level 3.1 g/dL (3.5-5.0); Alkaline Phosphatase 71 U/L (39-117); Anion Gap 10 (12-20); Aspartate Amino Transferase 119 U/L (5-37); Bilirubin Total 0.5 mg/dL (0.0-1.0); Blood Urea Nitrogen 12 mg/dL (9-16); Calcium 8.6 mg/dL (8.4-10.2); Carbon Dioxide 27 mmol/L (22-29); Chloride 106 mmol/L (96-108); Cholesterol 99 mg/dL (<200); Estimated Glomerular Filt Rate > 60; Glucose Random 89 mg/dL (60-115); HDL Cholesterol 44 mg/dL (>40); LDL Cholesterol Calculated 45 mg/dL (<100); Magnesium 2.1 mg/dL (1.6-2.6); Potassium 3.8 mmol/L (3.3-5.1); Sodium 139 mmol/L (135-145); Total Protein 7.3 g/dL (6.5-8.0); Triglycerides 53 mg/dL (<150)
[2024-03-02 09:49] LABS: Syphilis Screen Nonreactive (Nonreactive)
[2024-03-02 09:53] LABS: HBS Num1 0.37 mIU/mL (0-7.99); HBc Num1 0.18 S/CO (0.00-0.79); HBsAGNum1 0.37 S/CO (0.00-0.99); HIV AB/AG Nonreactive (Nonreactive); HIV Num 1 0.09 S/CO (0.00-0.99); Hepatitis A Antibody IgM 0.25 Index (0-0.79); Hepatitis B Core Antibody Nonreactive (Nonreactive); Hepatitis B Surface Antigen Negative (Negative); ~HepC Num1 16.67 S/CO (0.00-0.79); ~Hepatitis A Antibody IgM Nonreactive (Nonreactive); ~Hepatitis B Surface Antibody NONREACTIVE (Nonreactive); ~Hepatitis C Antibody Reactive (Nonreactive)
[2024-03-04 10:33] LABS: HCV RNA PCR Qn 489000 IU/mL (NOT DETECTED); HCV RNA PCR Qn 5.69 Log IU/mL (NOT DETECTED)
[2024-03-08 16:38] LABS: HCV Genotype LiPA 1a
== END 2024-03-02 08:15 | disposition home or self-care (01) ==
LOC: HO.LAB 08:14
PROVIDERS: PCP Family Medicine; Visit Provider Family Medicine
DX: B19.20 Unspecified viral hepatitis C without hepatic coma (principal); E66.813 Obesity, class 3; E66.01 Morbid (severe) obesity due to excess calories; Z68.42 Body mass index [BMI] 45.0-49.9, adult
CPT/HCPCS: 36415; 80053; 80061; 83735; 85025; 86704; 86706; 86709; 86780; 86803; 87340; 87389; 87522; 87902

== ENCOUNTER 2024-03-05 14:49 | Emergency (ER) | payer MEDICAID, SELFPAY ==
--- NOTE | ~2024-03-05 | XR_ITS ---
EXAMINATION: XR KNEE 4 OR MORE VIEWS LEFT CLINICAL INFORMATION: atraumatic knee pain COMPARISON: None available at the time of this dictation. TECHNIQUE: Frontal lateral obliques 4 views. FINDINGS: BONES: No fracture or dislocation is present. JOINTS: Joint spaces are preserved. Articular surfaces are smooth. There is a small knee joint effusion. SOFT TISSUE: Normal XR/XR knee LT 4V IMPRESSION: 1. Small knee joint effusion. 2. No radiographic evidence of acute osseous changes. Electronically signed by: Lucio Cifuentes MD 03/05/2024 03:29 PM EDT
[2024-03-05 15:00] VITALS: BP 150/75; PULSE 82; RESP 16; TEMP 36.9; O2SAT 99; BMI 44.5
--- NOTE | 2024-03-05 15:00 | ED_ITS ---
HPI - Extremity Injury (Lower) General Chief Complaint: Extremity Problem Stated Complaint: l knee pain Time Seen by Provider: 03/05/24 15:54 Source: patient Mode of arrival: ambulatory Limitations: no limitations History of Present Illness ED Provider: Noemy MAYNARD Narrative: Patient is a 43-year-old male with history of IV drug use, thrombocytopenia presenting to the emergency department for ongoing left knee pain. He was seen for the same 2 weeks ago, states the pain has remained the same and is returning for re-evaluation. Denies any new redness, swelling, fevers. Denies any nu mbness or tingling. Denies any recent falls or other trauma. States that he did not contact the orthopedic office for follow-up. States that he lost the FRANCK wrap provided at prior visit. Onset (ago): week(s) Related Data Home Medications ?Medication ?Instructions ?Recorded ?Confirmed methadone 10 mg/mL oral concentrate 135 mg PO DAILY 05/27/22 01/28/24 Previous Rx's ?Medication ?Instructions ?Recorded cephalexin 500 mg capsule 500 mg PO Q6H 7 days #28 caps 11/07/22 doxycycline hyclate 100 mg tablet 100 mg PO BID 7 days #14 tabs 11/07/22 cephalexin 500 mg capsule 500 mg PO QID 10 days #40 caps 04/18/23 doxycycline hyclate 100 mg capsule 100 mg PO BID 10 days #20 caps 04/18/23 tramadol 50 mg tablet 50 mg PO Q8H PRN pain (scale score 02/15/24 4-6) #5 tabs Allergies Allergy/AdvReac Type Severity Reaction Status Date / Time No Known Allergies Allergy Verified 03/05/24 15:02 [No Known Allergies*] Review of Systems Review of Systems: As per HPI Yes all other systems are reviewed and are negative Constitutional: Constitutional: Reports as per HPI PMFSH Past Medical History Medical History Leg ulcer Left against medical advice Morbid obesity with body mass index (BMI) of 40.0 or higher Bacteremia due to group B Streptococcus IV drug user Surgical History No pertinent past surgical history Family History Family History Other No family history of coronary artery disease Social History Social History Alcohol intake: current Alcohol intake frequency: does not drink Patient Tobacco Use Status: Current everyday Tobacco user Cigarette Packs Per Day: 1 Substance Use Type: Heroin Advance Directives: No Advance Directives Information Provided: No service: No Current occupational status: employed Physical Exam Vital Signs: Vital Signs: Last Vital Signs Temp 98.4 F 03/05/24 15:00 Pulse 82 03/05/24 15:00 Resp 16 03/05/24 15:00 BP 150/75 H 03/05/24 15:00 Pulse Ox 99 03/05/24 15:00 O2 Del Method Room Air 03/05/24 15:00 BMI result Body Mass Index 44.5 Vital signs have been reviewed and appear to be correct. Blood pressure elevated. Heart rate normal. Respiratory rate normal. Temperature normal. Oxygen saturation normal. Const: General: cooperative and no acute distress Orientation/consciousness: oriented to person, oriented to place, oriented to time and patient oriented x3 Limitations: no limitations HEENT: Head: Yes normocephalic and Yes atraumatic Ears: external ears normal General nose exam: Normal external nose present Face and sinus: Yes face symmetric Mouth: oropharynx normal and moist mucous membranes Throat: Yes uvula midline Eyes: Pupils: Equal, round and reactive pupils present Neck: Neck: Yes normal visual inspection and Yes supple Resp: Effort & Inspection: normal respiratory effort and able to speak in complete sentences Auscultation: clear to auscultation bilaterally Cardio: Rate: regular rate Rhythm: regular rhythm Heart sounds: S1 normal heart sound present and S2 normal heart sound present GI: Palpation (GI): Soft to palpation and nontender Auscultation: normoactive bowel sounds : General: Yes no CVA tenderness Back/Spine/Pelvis: Back: no CVA tenderness Skin: General skin exam: elasticity normal and turgor normal Neuro: General: oriented to person, oriented to place, oriented to time, patient oriented x3, moves all extremities, no focal motor deficits and CN's II- XI intact bilaterally Cranial nerves: Yes Equal, round and reactive pupils present Cognition (Neuro): normal cognition Extrem: General: Yes full ROM, Yes normal exam except as noted and Yes no calf tenderness Left lower extremity: knee Details: normal to inspection, tenderness (anterior knee), normal ROM, knee ligament exam normal and other (no erythema); no swelling and no unusual warmth and foot Details: vascular exam Details: dorsalis pedis pulse present and posterior tibial pulse present Psych: Mental Status: mental status grossly normal Affect: normal affect Thought process: Normal thought process present Course Course Course Narrative: This is a Rapid Medical Examination (RME) performed by Mattie Dodson PA-C in triage. Full HPI, ROS, assessment and treatment plan per primary provider in the Main ED. 43 yo male w/ hx of IVDU, thrombocytopenia here for eval of atraumatic left knee pain x1.5 months. [place] [facility] [place] w/ unremarkable xr. provided franck wrap and crutches. reports no improvement in pain since. taking tylenol at home w/o improvement. did not f/u with PCP or ortho. + ambulating w/ limping gait Plan: repeat xr Medical Decision Making Medical Decision Making MDM Narrative: Patient is a 43-year-old male with history of IV drug use, thrombocytopenia presenting to the emergency department for ongoing left knee pain. On exam patient is awake, A+Ox3, BP elevated, VS otherwise WNL, afebrile, normal neurological exam without focal deficits, physical exam findings as above. Given reported symptoms and physical exam findings, initial differential i ncludes knee strain, sprain, effusion. No evidence of septic joint on exam. X- ray notable for small joint effusion. My interpretation is in agreement with the radiologist's interpretation. Results discussed with patient all questions answered. Advised patient that he was referred to Orthopedics at prior visit for ongoing symptoms. Patient states he was never provided with phone number for Orthopedics, will refer again at today's visit. Patient also stating that he lost his Franck wrap, will provide patient with new Franck wrap. Return precautions discussed. Patient verbalized understanding of and agreement with plan. Differential Diagnosis Differential Diagnoses: The differential diagnosis associated with the presentation includes As per MDM. Independent Interpretation I performed an independent interpretation of an: Plain X-Ray Interpretation: Small effusion left knee Radiology Impression Discussion of test interpretation with radiology: I have reviewed the radiologist's reading. Radiologist Impression: XR/XR knee LT 4V IMPRESSION: 1. Small knee joint effusion. 2. No radiographic evidence of acute osseous changes. External Record Review External record reviewed: Inpatient record, Office record and Outpatient record Discharge Plan Discharge Clinical Impression: Effusion of knee joint, left Patient Disposition: Home, Self-Care Instructions: Swollen Joint (ED), Swollen Knee Joint (ED), How to Use an Elastic Bandage (ED) Additional Instructions: You were evaluated in the emergency department today for left knee pain. Your x-ray again showed a small joint effusion of your left knee. You were provided with another Franck wrap, please use this as instructed. We recommend that you follow-up with orthopedics for further evaluation and management. CALL THEIR OFFICE TO SCHEDULE AN APPOINTMENT, THEY WILL NOT CALL YOU. Return to the emergency department if you develop redness, swelling, fevers or any other concerning symptoms. Prescriptions: No Action methadone 10 mg/mL Concentrate 135 mg PO DAILY cephalexin 500 mg capsule 500 mg PO Q6H 7 Days Qty: 28 0RF doxycycline hyclate 100 mg tablet 100 mg PO BID 7 Days Qty: 14 0RF doxycycline hyclate 100 mg capsule 100 mg PO BID 10 Days Qty: 20 0RF cephalexin 500 mg capsule 500 mg PO QID 10 Days Qty: 40 0RF tramadol 50 mg tablet 50 mg PO Q8H PRN (Reason: pain (scale score 4-6)) Qty: 5 0RF Referrals: [facility] [Provider Group] - 1 week ( XR/XR knee LT 4V IMPRESSION: 1. Small knee joint effusion. 2. No radiographic evidence of acute osseous changes. ) Print Language: Namibian
[2024-03-05 16:45] VITALS: BP 123/84; PULSE 68; RESP 20; TEMP 36.9; O2SAT 100
[2024-03-05 16:55] VITALS: BP 123/84; PULSE 68; RESP 20; TEMP 36.9; O2SAT 100
== END 2024-03-05 16:56 | disposition home or self-care (01) ==
PROVIDERS: Emergency Provider Emergency Medicine; PCP Family Medicine
DX: M25.462 Effusion, left knee (principal); M25.562 Pain in left knee
CPT/HCPCS: 73564; 99282; 99283

== ENCOUNTER 2024-04-08 17:19 | Emergency (ER) | payer MEDICAID, SELFPAY | END 2024-04-08 20:11 | disposition left against medical advice (07) | PROVIDERS: Emergency Provider Internal Medicine; PCP Family Medicine | DX: Z53.21 Procedure and treatment not carried out due to patient leaving prior to being seen by health care provider (principal) ==

== ENCOUNTER 2024-04-10 08:07 | Emergency (ER) | payer MEDICAID, SELFPAY ==
--- NOTE | ~2024-04-10 | XR_ITS ---
EXAMINATION: XR TIBIA AND FIBULA, RIGHT CLINICAL INFORMATION: Open wound. Fevers. COMPARISON: Most recent right tibia and fibular radiographs dated 04/18/2023. TECHNIQUE: AP and lateral views of the right tibia and fibula were obtained. FINDINGS: Soft tissue wound overlying the lateral aspect of the lower leg measuring up to 10.4 cm in craniocaudal dimension. Circumferential soft tissue swelling/edema. No radiopaque foreign body. No abnormal soft tissue calcification. Chronic periosteal reaction along the distal tibial diametaphysis, new when compared to the prior radiographs and consistent with chronic osteomyelitis. More mild chronic periosteal reaction within the distal tibia which is also increased and could indicate chronic osteomyelitis. No cortical erosion. No acute fracture or dislocation. XR/XR tibia fibula RT 2V IMPRESSION: 1. Soft tissue wound overlying the lateral aspect of the lower leg measuring up to 10.4 cm in craniocaudal dimension. Circumferential soft tissue swelling/edema. 2. Chronic periosteal reaction along the distal tibial diametaphysis, new when compared to the prior radiographs and consistent with chronic osteomyelitis. More mild chronic periosteal reaction within the distal tibia which could indicate chronic osteomyelitis. Electronically signed by: James Smiley MD 04/10/2024 10:36 AM [facility]
--- NOTE | ~2024-04-10 | XR_ITS ---
EXAMINATION: XR CHEST CLINICAL INFORMATION: Fevers. COMPARISON: Most recent chest radiograph dated 05/26/2022. TECHNIQUE: Frontal view of the chest was obtained. FINDINGS: The lungs are clear. The cardiomediastinal silhouette is normal in size. There is no pleural effusion or pneumothorax. No acute osseous abnormality. XR/XR chest 1V IMPRESSION: No acute cardiopulmonary findings. Electronically signed by: James Smiley MD 04/10/2024 09:57 AM [facility]
[2024-04-10 08:17] VITALS: BP 146/71; PULSE 86; RESP 19; TEMP 36.8; O2SAT 97; BMI 44.5
--- NOTE | 2024-04-10 09:06 | ED.FEVER ---
HPI - Fever General Chief Complaint: General Medical Stated Complaint: Fever, nausea Time Seen by Provider: 04/10/24 08:51 Source: patient and old records reviewed Mode of arrival: ambulatory Limitations: no limitations History of Present Illness ED Provider: ABHISHEK MAYNARD Narrative: 43 yo male with PMH of obesity, chronic right leg wound, opiate use disorder, GBS bacteremia in past - S to PCN/ceftriaxone, who notes no change in wound but was told if has this to come get checked out. He has no fevers but it is subjective. He notes abscess L top of hand from IVDA. He reports no pain with moving of fingers or hand. He denies travel or sick contacts. No cough, sore throat, abdominal pain, back pain n/v/d. MD elicited complaint: fever and malaise Pertinent past history: other Onset (ago): day(s) (3) Context: other (chronic RLE wound) Exacerbating factors: nothing Relieving factors: nothing Associated symptoms: denies other symptoms Treatments prior to arrival fever: none Related Data Home Medications ?Medication ?Instructions ?Recorded ?Confirmed methadone 10 mg/mL oral concentrate 135 mg PO DAILY 05/27/22 01/28/24 Previous Rx's ?Medication ?Instructions ?Recorded cephalexin 500 mg capsule 500 mg PO Q6H 7 days #28 caps 11/07/22 doxycycline hyclate 100 mg tablet 100 mg PO BID 7 days #14 tabs 11/07/22 cephalexin 500 mg capsule 500 mg PO QID 10 days #40 caps 04/18/23 doxycycline hyclate 100 mg capsule 100 mg PO BID 10 days #20 caps 04/18/23 tramadol 50 mg tablet 50 mg PO Q8H PRN pain (scale score 02/15/24 4-6) #5 tabs cephalexin 500 mg capsule 500 mg PO QID 10 days #40 caps 04/10/24 doxycycline hyclate 100 mg capsule 100 mg PO BID 10 days #20 caps 04/10/24 Allergies Allergy/AdvReac Type Severity Reaction Status Date / Time No Known Allergies Allergy Verified 04/10/24 08:20 [No Known Allergies*] Review of Systems Review of Systems: Constitutional : pos Fever, pos Chills, pos Fatigue ENT/Mouth : No sore throat, No Rhinorrhea Eyes: No Eye Pain, No Swelling, No Redness Cardiovascular : No Chest Pain, No SOB, No Dyspnea on Exertion Respiratory : No Cough, No Sputum Gastrointestinal : No Nausea, No Vomiting, No Diarrhea, No abdominal Pain Genitourinary : No Dysuria, No Urinary Frequency, No Hematuria, Musculoskeletal : No joint pain, No Myalgias, No Joint Swelling Skin : No Skin Lesions, No rash, pos wound Neuro : No Weakness, No Numbness, No Dizziness, no Headache All other systems reviewed and are negative [facility] Past Medical History Attestation statement: The following information was validated with the patient. Source: old records reviewed Medical History Leg ulcer Left against medical advice Morbid obesity with body mass index (BMI) of 40.0 or higher Bacteremia due to group B Streptococcus IV drug user Surgical History No pertinent past surgical history Family History Family History Other No family history of coronary artery disease Social History Social History Alcohol intake: current Alcohol intake frequency: does not drink Patient Tobacco Use Status: Current everyday Tobacco user Cigarette Packs Per Day: 1 Smoked in Last 30 Days: No Substance Use Type: Heroin Advance Directives: No Advance Directives Information Provided: Yes Do you have a plan to hurt others: No Plan service: No Current occupational status: employed Physical Exam Vital Signs: Vital Signs: Last Vital Signs Temp 98.3 F 04/10/24 10:57 Pulse 80 04/10/24 10:57 Resp 20 04/10/24 10:57 BP 136/81 04/10/24 10:57 Pulse Ox 99 04/10/24 10:57 O2 Del Method Room Air 04/10/24 10:57 BMI result Body Mass Index 44.5 Appearance: Alert. Oriented X3. No acute distress. Eyes: Pupils equal, round and reactive to light. ENT: Pharynx normal. Neck: Normal inspection. Neck supple. CVS: Normal heart rate and rhythm. Pulses normal. Respiratory: No respiratory distress. Breath sounds normal. Abdomen: Soft and non-tender. Back: no ttp Skin: Skin warm and dry. Normal skin color. Extremities: No lower extremity edema. L hand dorsum small 2cm abscess noted with mild erythema normal ROM of fingers and wrist. No joint effusion . R LE chronic ulcerated lower extremity lateral encompasses entire lateral leg no surrounding edema/erythema/no drainage noted. Neuro: Oriented X 3. No motor deficit. No sensory deficit. Medications Administered Discontinued Medications Generic Name Dose Route Start Last Admin Trade Name Gladys PRN Reason Stop Dose Admin Piperacillin Sod/Tazobactam 50 mls @ 100 mls/hr 04/10/24 09:01 04/10/24 10:21 Sod 3.375 gm/ Sodium Chloride IV 04/10/24 09:30 100 mls/hr ONCE ONE Administration Lidocaine HCl 1 appl 04/10/24 09:01 04/10/24 10:21 Lidocaine 4 % Cream Kit TOPICAL 04/10/24 09:02 1 appl ONCE ONE Administration Protocol Procedures Abscess I/D Site: hand Side (if applicable): left Local Anesthetic: other anesthetic (LET) Technique: needle aspiration Amount of fluid expressed (mL): 3 Sent for culture/gram staining?: No Irrigation: No Packing used?: none Medical Decision Making Medical Decision Making [facility] Narrative: 43 yo male with PMH of obesity, chronic right leg wound, opiate use disorder, GBS bacteremia in past - S to PCN/ceftriaxone here with c/o abscess L hand from IVDA no extension or cellulitis up the arm - plan to I+D it start on zosyn he is active IVDA has subj fevers but no cough, dysuria, back pain, travel URI symptoms to suggest systemic symptoms. No CP/SOB to suggest endocarditis. At this time possibly ill from abscess - has no signs of deeper space infection or tendon infection. He has no back pain to suggest epidural abscess, chronic large ulcerated wound on RLE no drainage noted and no surrounding edema/erythema. Differential Diagnosis Differential Diagnoses: The differential diagnosis associated with the presentation includes refuses to stay in hospital - aware of chronic osteo does not want admission PO abx ordered has hx of AMA with bacteremia in the past Admission/Observation Consideration of admission/observation: Escalation of care including admission/observation considered abscess, cellulitis, bacteremia Lab Data [facility] Lab Attestation statement: I reviewed the patient's lab results. 04/10/24 09:54 04/10/24 09:54 Labs: Lab Results 04/10/24 04/10/24 04/10/24 Range/Units 09:54 09:55 10:19 WBC 5.5 (4.8-10.8) X10*3/uL RBC 3.99 L (4.60-5.80) X10*6/uL Hgb 10.7 L (14.0-18.0) g/dl Hct 33.4 L (42.0-52.0) % MCV 83.7 (80.0-98.0) fL MCH 26.8 L (27.0-33.0) pg MCHC 32.0 (31.0-36.0) g/dl RDW 15.5 (11.0-16.0) % Plt Count 113 L (160-400) X10*3/uL MPV 10.5 (9.4-12.4) fL Immature Gran % (Auto) 0.4 (0.0-0.4) % Neut % (Auto) 71.0 (45-73) % Lymph % (Auto) 16.3 L (20-40) % Wharton % (Auto) 10.8 (2-11) % Eos % (Auto) 1.3 (0-4) % Baso % (Auto) 0.2 (0-2) % Lymph # (Auto) 0.9 L (1.2-4.9) X10*3/uL Wharton # (Auto) 0.6 (0.1-1.2) X10*3/uL Eos # (Auto) 0.1 (0.0-0.4) X10*3/uL Baso # (Auto) 0.0 (0.0-0.2) X10*3/uL Abs Immat Gran (auto) 0.02 (0.00-0.03) X10*3/uL Absolute Neuts (auto) 3.9 (2.0-8.3) x10*3/uL Absolute Nucleated RBC 0.000 (0.0-0.012) X10*3/uL Nucleated RBC % (auto) 0.0 (0.0-0.2) /100WBC Sodium 136 (135-145) mmol/L Potassium 4.1 (3.3-5.1) mmol/L Chloride 106 (96-108) mmol/L Carbon Dioxide 25 (22-29) mmol/L Anion Gap 9 L (12-20) BUN 12 (9-16) mg/dL Creatinine 0.72 (0.5-1.4) mg/dL Estim Creat Clear Calc 185.2 Estimated GFR > 60 Random Glucose 89 (60-115) mg/dL Lactic Acid 0.9 (0.5-2.0) mmol/L Calcium 8.2 L (8.4-10.2) mg/dL Magnesium 2.0 (1.6-2.6) mg/dL Total Bilirubin 0.5 (0.0-1.0) mg/dL Direct Bilirubin 0.3 (0.0-0.5) mg/dL AST 94 H (5-37) U/L ALT 74 H (0-40) U/L Alkaline Phosphatase 77 (39-117) U/L Total Protein 7.8 (6.5-8.0) g/dL Albumin 3.0 L (3.5-5.0) g/dL Influenza Type A (PCR) NEGATIVE (Negative) Influenza Type B (PCR) NEGATIVE (Negative) RSV RNA Qual (PCR) NEGATIVE (Negative) SARS-CoV-2 RNA (RT-PCR) NEGATIVE (Negative) Independent Interpretation I performed an independent interpretation of an: Plain X-Ray (chronic osteo) Radiology Impression Discussion of test interpretation with radiology: I have reviewed the radiologist's reading. External Record Review External record reviewed: Inpatient record Prescription Management I considered prescription management with: Antibiotic Discharge Plan Discharge Clinical Impression: Abscess of hand, Chronic osteomyelitis involving lower leg Patient Disposition: Home, Self-Care Instructions: Osteomyelitis (ED), Abscess (ED) Additional Instructions: you were offered admission for symptoms negative for flu covid rsv you need to follow up on the chronic bone involvement infection - please see the wound care center this is generally care home antibiotics abscess on hand was drained monitor for increased redness, swelling, pain, difficulty opening hand or any other concerns. finish antibiotics On a cephalosporin?antibiotic, softer bowel movements are to be expected. Call your provider if you move your bowels more than 4 times a day, your bowel movements are almost all liquid, or you get a rash.?? On doxycycline, do not take pills immediately before going to bed and swallow pills with plenty of water. Avoid direct sunlight, iron, antacids, and Pepto Bismol. Call your provider if you develop new ringing in your ears, new problems hearing, dizziness, difficulty swallowing, rash, abdominal discomfort, nausea, or diarrhea.? Prescriptions: New doxycycline hyclate 100 mg capsule 100 mg PO BID 10 Days Qty: 20 0RF cephalexin 500 mg capsule 500 mg PO QID 10 Days Qty: 40 0RF No Action methadone 10 mg/mL Concentrate 135 mg PO DAILY cephalexin 500 mg capsule 500 mg PO Q6H 7 Days Qty: 28 0RF doxycycline hyclate 100 mg tablet 100 mg PO BID 7 Days Qty: 14 0RF doxycycline hyclate 100 mg capsule 100 mg PO BID 10 Days Qty: 20 0RF cephalexin 500 mg capsule 500 mg PO QID 10 Days Qty: 40 0RF tramadol 50 mg tablet 50 mg PO Q8H PRN (Reason: pain (scale score 4-6)) Qty: 5 0RF Print Language: Armenian
--- NOTE | 2024-04-10 09:38 | PC.NURSE ---
Pt difficult stick, multiple attempts at IV. Plan for ultrasound guided IV.
[2024-04-10 10:01] LABS: MANUAL DIFF FLAG NO
[2024-04-10 10:03] LABS: Basophils Percent Auto 0.2 % (0-2); Eosinophils Absolute Auto 0.1 X10*3/uL (0.0-0.4); Eosinophils Percent Auto 1.3 % (0-4); Hematocrit 33.4 % (42.0-52.0); Hemoglobin 10.7 g/dl (14.0-18.0); Imm Gran Abs Auto 0.02 X10*3/uL (0.00-0.03); Imm Gran Pct Auto 0.4 % (0.0-0.4); Lymphocytes Absolute Auto 0.9 X10*3/uL (1.2-4.9); Lymphocytes Percent Auto 16.3 % (20-40); Mean Corpuscular Hemoglobin 26.8 pg (27.0-33.0); Mean Corpuscular Volume 83.7 fL (80.0-98.0); Mean Platelet Volume 10.5 fL (9.4-12.4); Monocytes Absolute Auto 0.6 X10*3/uL (0.1-1.2); Monocytes Percent Auto 10.8 % (2-11); Neutrophils Absolute Auto 3.9 x10*3/uL (2.0-8.3); Platelet Count 113 X10*3/uL (160-400); Red Blood Count 3.99 X10*6/uL (4.60-5.80); Red Cell Distribution Width 15.5 % (11.0-16.0); White Blood Count 5.5 X10*3/uL (4.8-10.8)
[2024-04-10] MEDS: Lidocaine 4 % Cream KIT 1 APPL TOPICAL (10:21)
[2024-04-10] MEDS: Piperacillin Sodium/Tazobactam 3.375 GM in 0.9 % Sodium Chloride 50 ML IV (10:21)
[2024-04-10 10:28] LABS: Lactic Acid 0.9 mmol/L (0.5-2.0)
[2024-04-10 10:29] LABS: Alanine Aminotransferase 74 U/L (0-40); Alkaline Phosphatase 77 U/L (39-117); Anion Gap 9 (12-20); Aspartate Amino Transferase 94 U/L (5-37); Bilirubin Direct 0.3 mg/dL (0.0-0.5); Bilirubin Total 0.5 mg/dL (0.0-1.0); Blood Urea Nitrogen 12 mg/dL (9-16); Calcium 8.2 mg/dL (8.4-10.2); Carbon Dioxide 25 mmol/L (22-29); Chloride 106 mmol/L (96-108); Creatinine Clr Calc Pharmacy 185.2; Estimated Glomerular Filt Rate > 60; Glucose Random 89 mg/dL (60-115); Potassium 4.1 mmol/L (3.3-5.1); Sodium 136 mmol/L (135-145); Total Protein 7.8 g/dL (6.5-8.0)
[2024-04-10 10:57] VITALS: BP 136/81; PULSE 80; RESP 20; TEMP 36.8; O2SAT 99
[2024-04-10 11:04] LABS: Influenza A PCR NEGATIVE (Negative); Influenza B PCR NEGATIVE (Negative); Resp Syncy Virus RNA Qual PCR NEGATIVE (Negative); SARS COV2 PCR INHOUSE NEGATIVE (Negative)
[2024-04-10 11:14] VITALS: BP 136/81; PULSE 80; RESP 20; TEMP 36.8; O2SAT 99
== END 2024-04-10 11:15 | disposition home or self-care (01) ==
PROVIDERS: Emergency Provider Emergency Medicine; PCP Family Medicine
DX: L02.512 Cutaneous abscess of left hand (principal); M86.8X6 Other osteomyelitis, lower leg; M79.604 Pain in right leg; R50.9 Fever, unspecified; F11.10 Opioid abuse, uncomplicated; F17.210 Nicotine dependence, cigarettes, uncomplicated; Z03.818 Encounter for observation for suspected exposure to other biological agents ruled out; Z79.899 Other long term (current) drug therapy
CPT/HCPCS: 0241U; 10060; 71045; 73590; 80048; 80076; 83605; 83735; 85025; 87040; 96365; 99284; J2543

== ENCOUNTER 2024-05-04 08:15 | Outpatient (RCR) | payer MEDICAID, SELFPAY | END 2024-05-25 09:46 | disposition home or self-care (01) | LOC: HO.WCC 08:15 | PROVIDERS: PCP Family Medicine; Visit Provider Surgery | DX: I87.331 Chronic venous hypertension (idiopathic) with ulcer and inflammation of right lower extremity (principal); L97.812 Non-pressure chronic ulcer of other part of right lower leg with fat layer exposed; F11.20 Opioid dependence, uncomplicated; E66.9 Obesity, unspecified; Z87.891 Personal history of nicotine dependence; Z79.899 Other long term (current) drug therapy | CPT/HCPCS: 11042; 11045; 15271; 15272; 99213; 99214; Q4101 ==

== ENCOUNTER 2024-07-19 10:08 | Outpatient (REF) | payer MEDICAID, SELFPAY ==
[2024-07-19 11:34] LABS: MANUAL DIFF FLAG NO
[2024-07-19 11:51] LABS: Basophils Percent Auto 0.2 % (0-2); Eosinophils Absolute Auto 0.1 X10*3/uL (0.0-0.4); Eosinophils Percent Auto 2.3 % (0-4); Hematocrit 32.5 % (42.0-52.0); Hemoglobin 10.4 g/dl (14.0-18.0); Imm Gran Abs Auto 0.02 X10*3/uL (0.00-0.03); Imm Gran Pct Auto 0.4 % (0.0-0.4); Lymphocytes Absolute Auto 1.3 X10*3/uL (1.2-4.9); Lymphocytes Percent Auto 26.1 % (20-40); Mean Corpuscular Hemoglobin 26.5 pg (27.0-33.0); Mean Corpuscular Volume 82.7 fL (80.0-98.0); Mean Platelet Volume 10.9 fL (9.4-12.4); Monocytes Absolute Auto 0.6 X10*3/uL (0.1-1.2); Neutrophils Absolute Auto 2.9 x10*3/uL (2.0-8.3); Platelet Count 105 X10*3/uL (160-400); Red Blood Count 3.93 X10*6/uL (4.60-5.80); Red Cell Distribution Width 18.1 % (11.0-16.0); White Blood Count 4.8 X10*3/uL (4.8-10.8)
--- OUTSIDE RECORDS SUMMARY | 2024-07-19 11:51 | XMS_ITS | Encounter Summary ---
Author Organization [employer] Address [address] [place] [address] Care Team Providers Care File Machine Operator Name Role Phone Laury Perez MD Primary Care Provider [phone] Encounter Details Date Type Department Care Team (Late st Contact Info) Description 06/27/2024 Telephone [facility] [address] [place] [address] Adrianne Beckwith Social History Tobacco Use Types Packs/Day Years Used Date Smoking Tobacco: Every Day Cigarettes Passive Smoke Exposure: Never Smokeless Tobacco: Never Alcohol Use Standard Drinks/Week Comments Never 0 (1 standard drink = 0.6 oz pur e alcohol) Depression Answer Date Recorded Patient Health Questionnaire-9 Score 13 03/02/2024 Patient Health Questionnaire-9 Score 13 03/02/2024 Last PHQ-9: Questionnaire Data Not on file 1 Housing Stability Answer Date Recorded What is your housing situation today? I have michaela roberson 02/23/[address] you li ve. Do you have problems with any of the following? None of the above 02/23/2024 Food Insecurity Answer Date Recorded Within the past 12 months, y ou worried that your food would run out before you got money to buy more: Never True 02/23/2024 Within the past 12 months,th e food you bought just didn't last and you didn't have enough money to get more: Never True 05/2023 Transportation Answer Date Recorded In the past 12 months, has l ack of transportation kept you from medical appts, meetings, work or from getting things needed for daily living? No 02/23/2024 Utilities Answer Date Recorded In the past 12 months, has t he electric, gas, oil or water company threatened to shut off services in your home? No 02/23/2024 Depression Answer Date Recorded Patient Health Questionnaire-2 Score 6 03/02/2024 Internet Access Answer Date Recorded Internet Access Q1 Yes 02/23/2024 Internet Access Q2 Not on file 02/23/2024 Sex and Gender Information Value Date Recorded Sex Assigned at Male 03/24/2022 10:15 AM EDT Legal Sex Male 10:15 AM EDT Gender Identity Male 03/24/2022 10:15 AM EDT Sexual Orientation Straight 03/24/2022 10 :15 AM EDT documented as of this encounter Progress Notes * Adrianne Trevizo - 06/27/2024 9:33 AM EST [facility] Adrianne called and patient says will come in today for Hep C labs. documented in this encounter Plan of Treatment Not on file documented as of this encounter Visit Diagnoses Not on filedocumented in this encounter Additional Health Concerns Assessment Noted Time PHQ-9 Depression Total Score: 13 024 11:45 AM EDT documented as of this encounter Care Teams File Machine Operator Relationship Specialty Start Date End Date Laury Perez MD [address] [place] [address] PCP - General Family Medicine 10/31/21 documented as of this encounter
--- OUTSIDE RECORDS SUMMARY | 2024-07-19 11:51 | XMS_ITS | Clinical Summary ---
Author Organization [employer] Address [address] [facility] [address] [place] [address] Care Team Providers Care Teacher Assistant Name Role Phone Laury Perez MD Primary Care Provider Allergies No known active allergies Medications * This document contains information received from the source organization and may not represent a complete record from that organization. albuterol 108 (90 Base) MCG/ACT inhaler Inhale 2 puffs every 4 (four) hours. 2 Active hydrOXYzine HCl (Atarax) 25 MG tabletIndications :Panic attacks Take 1 tablet (25 mg) by mouth every 8 (eight) hours if needed for itching for up to 10 days. 30 tablet 4 Active Santyl 250 UNIT/GM ointment APPLY NICKEL THICK TO LEG WOUND DAILY DIRECTED (8.5 X 9.2 CM) 4 Active betamethasone dipropionate (Diprosone) 0.05 % ointment APPLY ON THE LEG WOUND RAW SURFACE DAILY 4 Active naloxone (Narcan) 4 mg/0.1 mL nasal spray Administer 1 spray (4 mg) into affected nostril(s) if needed for opioid reversal. 2 each 2 4 Active methadone (Dolophine) 10 MG/5ML solutionIndicatio ns:[facility] Take 155 mg by mouth Once per day. Active cephalexin (Keflex) 500 MG capsule TAKE 1 CAPSULE BY MOUTH 4 TIMES A DAY FOR 10 DAYS 4 Active doxycycline (Vibramycin) 100 MG capsule Take 100 mg by mouth 2 times daily. 4 Active Active Problems Problem Noted Date Diagnosed Date Grief reaction 03/01/2024 Assessment & Plan (03/02/2024 2:38 PM EDT): During [facility] Consult Alessandro presenting with depressed mood, Tearful, irritable mood, loss of interests/pleasure , sense of isolation/loneliness , isolating, change in appetite or weight overeating, psychomotor agitation, fatigue/loss of energy, inappropriate/excessive guilt , difficulty concentrating and excessive worry/anxiety, difficulty controlling worry, anxiety/worry associated to restlessness and/or feeling keyed-up/On edge , easily fatigued , difficulty concentrating and/or mind going blank , and sleep disturbance difficulty falling asleep, and Fear , intense yearning, difficulty processing his loss, unable to relocate his 's belonging as a way of rejecting reality and sleeping problems associated with his grieving process; for a period of 0-6 mo, for most or all symptoms in the context of . Alessandro carries a diagnosis for Panic Attacks per his medical chart. Today he presented with depressive symptoms associated with grief. His mom about a year ago; he reports being able to manage and overcome to his loss. Unfortunately, his five months after his mom. They were for 22 years. Alessandro's sxs started after his passing. He isolated himself from others and started feeling panic attacks. clinician engaged patient with active/reflective listening, validation of emotions and provided a safe space for patient to share his emotions associated with his loss. Alessandro wasn't prepare to address grief before, but now he feels ready to start doing closure. His grandchildren are his main protective factors. Reviewed and assessed for risk, current stressors and protective factors using open-ended questions. Pt preferred to use same-day appointments with [facility] / N for OP individual therapy. clinician will provide follow-up as needed. Anxiety 03/01/2024 Panic attacks 02/18/2024 Assessment & Plan (02/18/2024 4:35 PM EDT): Counseling done today I prescribed PRN hydroxyzine Anxiety with depression 02/18/2024 Assessment & Plan (02/18/2024 4:34 PM EDT): We talked about non-medication interventions for anxiety including exercise, meditation, counseling, mindfulness practices, danial chi. Also recommend consideration for medication start for persistent daily anxiety negatively impacting quality of life and activities. Counseling done N referral Temporary high blood pressure 02/18/2024 Assessment & Plan (02/18/2024 4:35 PM EDT): Likely today high because he feels upset I advise low Na diet weight reduction and f/u with PCP Daytime somnolence 10/28/2022 Edema of both lower legs 10/28/2022 Assessment & Plan (03/01/2024 5:16 PM EDT): Patient reports that he is following with wound are, will need help with DTA forms, but he has not seen primary care for more then 2 years, he does follow with wound care. Will need to re-evaluate need and assess his needs Opioid dependence 10/28/2022 Assessment & Plan (03/01/2024 5:17 PM EDT): On methadone clinic, using 155 mg of methadone, reports he has pending EKG. Will send magnesium and K testing. Avoid QT prolonging agents given high dose methadone Tobacco dependence syndrome 10/28/2022 Varicose veins of both legs with edema 3 Encounters Date Type Department Care Team Description 07/18/[address] [facility] [address] [place] [phone] Adrianne Beckwith 07/18/[address] [facility] [address] [place] [phone] Julee Wilkerson, RN Hepatitis C virus infection without hepatic coma, unspecified chronicity 06/27/[address] [facility] [address] [place] [phone] Adrianne Beckwith 06/10/[address] [facility] [address] [place] [phone] Julee Wilkerson, RN Hep C Management 06/06/2024 6:00 PM EST Office Visit [facility] [address] [place] [phone] Papa George MD Loss of vision (Primary Dx); Dizziness 06/06/[address] [facility] [address] [place] [phone] Roseanne Prince RN WIC triage 06/06/[address] [facility] [address] [place] [address] Laury Perez MD Nurse Triage 05/19/[address] [facility] [address] [place] [address] Eugenio Patricia Trevizourdes 05/04/[address] [facility] [address] [place] [address] [facility] Adrianne 04/28/[address] [facility] [address] [place] [address] Laury Perez MD 04/28/2024 Telephone [facility] [address], [place] [phone] Laury Perez MD 04/28/2024 Travel from Last 3 Months Immunizations Name Administration Dates Next Due Pneumococcal Conjugate PCV 20 03/01/2024 Tdap 03/01/2024 Social History Tobacco Use Types Packs/Day Years Used Date Smoking Tobacco: Every Day Cigarettes Passive Smoke Exposure: Never Smokeless Tobacco: Never Tobacco Cessation:Ready to Q uit: Not Asked; Counseling Given: Not Answered Alcohol Use Standard Drinks/Week Comments Never 0 [...] Orientation Straight 03/24/2022 10 :15 AM EDT Last Filed Vital Signs Vital Sign Reading Time Taken Comments Blood Pressure 141/84 06/06/2024 5:47 PM EST Pulse 62 06/06/2024 5:47 PM EST Temperature 37 ??C (98.6 ??F) 06/06/2024 5:47 PM EST Respiratory Rate 18 06/06/2024 5:47 PM EST Oxygen Saturation 98% 06/06/2024 5:47 PM EST Inhaled Oxygen Concentration - - Weight 146 kg (322 lb) 06/06/2024 5:47 PM EST Height 177 cm (5' 9.69 ) 04/14/2024 11:30 AM EST Body Mass Index 46.61 04/14/2024 11:30 AM EST Plan of Treatment Health Maintenance Due Date Last Done Comments Alcohol/Substance Use Screening 1991 Family Planning (PISQ) 07/28/1994 Hepatitis A Vaccines (1 of 2 - Risk 2-dose series) 07/28/1998 Hepatitis B Vaccines (1 of 3 - 19+ 3-dose series) 07/28/1998 COVID-19 Vaccine ( season) 2024 06/04/2022, 10/01/2021, 10/25/2020, Additional history exists Influenza Vaccine (#1) 2024 Depression Monitoring (PHQ-9) 08/31/2024 03/02/2024, 03/02/2024 SDOH Screening 02/22/2025 02/23/2024 Depression Screening 03/02/2025 03/02/2024, 03/02/20 24 Tobacco Screening 04/14/2025 04/14/2024 Lipid Panel 03/02/2029 03/02/2024, 10/24/2021 Zoster Vaccines (1 of 2) 07/28/2029 DTaP/Tdap/Td Vaccines (2 - Td or Tdap) 03/01/2034 03/01/2024 RSV Patients and Patients Aged 60 years or older (1 - 1-dose 75+ series) 07/28/2054 Pneumococcal Vaccine: Pediatrics (0 to 5 Years) and At-Risk Patients (6 to 49) Years) Completed 03/01/2024 HIV Screening Completed 03/02/2024, 05/2022, 10/24/2021 HIB Vaccines Aged Out No longer eligi ble based on patient's age to complete this topic HPV Vaccines Aged Out No longer eligi ble based on patient's age to complete this topic IPV Vaccines Aged Out No longer eligi ble based on patient's age to complete this topic Meningococcal Vaccine Aged Out No irma arlyn eligible based on patient's age to complete this topic RSV under 20 months Aged Out No longe r eligible based on patient's age to complete this topic Rotavirus Vaccines Aged Out No longer eligible based on patient's age to complete this topic Procedures Procedure Name Priority Date/Time Associated Diagnosis Comments ECG 12-LEAD Routine 06/06/2024 7:31 PM EST Dizziness POCT GLUCOSE Routine 06/06/2024 5:57 PM EST Loss of vision HIV 1/2 ANTIGEN/ANTIBODY, FOURTH GENERATION W/RFL Routine 03/02/2024 8:37 AM EDT Hepatitis C virus infection without hepatic coma, unspecified chronicity LIPID PANEL, STANDARD Routine 03/02/2024 8:37 AM EDT Class 3 severe obesity without serious comorbidity with body mass index (BMI) of 45.0 to 49.9 in adult, unspecified obesity type (CMS/HCC) from Last 3 Months or Most Recently Relevant to Health Maintenance Results * ECG 12 lead (06/06/2024 7:31 PM EST) Narrative Papa George MD - 06/06/2024 7:31 PM EST HR:64 Qtc:[address] changes Papa Solomon MD ECG ORDERABLES Fi nal Result * POCT Glucose (06/06/2024 5:57 PM EST) Glucose Blood, POC 121 60 - 200 mg/dL QC Media Lot # [id number] Lot# Expiration Date 720 Blood Capillary blood specimen / Unknown 06/06/2024 5:57 PM EST Papa Solomon MD POINT OF CARE TEST ENTER/EDIT ORDERABLES Final Result * HIV-1/2 Antigen and Antibodies, Fourth Generation, with Reflexes (03/02/2024 8:37 AM EDT) HIV AB/AG Nonreactive Nonreactive [facility] Comment:HIV-1 p24 Ag and/or HIV-1/HIV-2 Ab not detected.A test result that is nonreactive does not exclude thepossibility of exposure to or infection with HIV-1 and/orHIV-2. Nonreactive results in this assay for individualswith prior exposure to HIV-1 and/or HIV-2 may be due toantigen and antibody levels that are below the limit ofdetection of this assay.The [employer] HIV Ag/Ab Combo assay result andsupplemental assay results should be interpreted inconjunction with the patient's clinical presentation,history and other laboratory results. If the results areinconsistent with clinical evidence, additional testing issuggested to confirm the result. Blood Venous blood specimen / Unknown 03/02/2024 8:37 AM EDT 03/02/2024 8:37 AM EDT Laury Perez MD LAB BLOOD ORDERABLES Final Re sult [facility] [address] [place] [phone] * Lipid Panel, Standard (03/02/2024 8:37 AM EDT) Triglycerides 53 <150 mg/dL [facility] Comment:Desirable Triglyceri de: less than 150 mg/dLBorderline High Triglyceride 150-199 mg/dLHigh Triglyceride: 200-499 mg/dLVery High Triglyceride: greater than or equal to 5OO mg/dL Cholesterol 99 <200 mg/dL [facility] Comment:Desirable Cholestero l: less than 200 mg/dLBorderline High Cholesterol: 200-239 mg/dLHigh Cholesterol: greater than 239 mg/dL LDL Cholesterol Calculated 45 <100 mg/dL [facility] Comment:Desirable LDL: less than 100 mg/dLNear Optimal/Above Optimal LDL: 110- 129 mg/dLBorderline High LDL: 130-159 mg/dLHigh LDL: 160-189 mg/dLVery High LDL: greater than or equal to 190 mg/dL HDL Cholesterol 44 >40 mg/dL [facility] Comment:Desirable HDL: great er than 40 mg/dL Note: This HDL assay may give artificially low results in patients with liver disease. Blood Venous blood specimen / Unknown 03/02/2024 8:37 AM EDT 03/02/2024 8:37 AM EDT us Laury Perez MD LAB BLOOD ORDERABLES Final Re sult [facility] [address] [place] [address] [phone] from Last 3 Months or Most Recently Relevant to Health Maintenance Insurance [facility] C3 Care Teams Teacher Assistant Relationship Specialty Start Date End Date Laury Perez MD [address] [place] [id number] PCP - General Family Medicine 10/31/21
--- OUTSIDE RECORDS SUMMARY | 2024-07-19 11:51 | XMS_ITS | Encounter Summary ---
Author Organization [employer] Address [address] [facility] [address] [place] [address] Care Team Providers Care Development Intern Name Role Phone Laury Perez MD Primary Care Provider [phone] Encounter Details Date Type Department Care Team (Late st Contact Info) Description 07/18/2024 Orders Only [facility] [address] [place] [address] Julee Wilkerson, RN [address] [place] [address] Hepatitis C virus infection without hepatic coma, unspecified chronicity Social History Tobacco Use Types Packs/Day Years [...] as of this encounter Progress Notes * Julee Wilkerson RN - 07/18/2024 2:35 PM EST Re-ordered Hep C labs, please remind pt to do labs. Not fasting. documented in this encounter Plan of Treatment Scheduled Orders Name Type Priority Associated Diagnoses Orde r Schedule Hepatitis C Viral RNA, Genotype, LiPA Lab Routine Hepatitis C virus infection without hepatic coma, unspecified chronicity Expected: 07/18/2024 (Approximate), Expires: 07/18/2025 Prothrombin Time-INR Lab Routine Hepatitis C virus infection without hepatic coma, unspecified chronicity Expected: 07/18/2024 (Approximate), Expires: 07/18/2025 Liver Fibrosis (HCV), FibroTest-ActiTest Panel Lab Routine Hepatitis C virus infection without hepatic coma, unspecified chronicity Expected: 07/18/2024 (Approximate), Expires: 07/18/2025 Hepatitis C Viral RNA, Quantitative, Real-Time PCR Lab Routine Hepatitis C virus infection without hepatic coma, unspecified chronicity Expected: 07/18/2024 (Approximate), Expires: 07/18/2025 HIV-1/2 Antigen and Antibodies, Fourth Generation, with Reflexes Lab Routine Hepatitis C virus infection without hepatic coma, unspecified chronicity Expected: 07/18/2024 (Approximate), Expires: 07/18/2025 documented as of this encounter Visit Diagnoses Diagnosis Hepatitis C virus infection without hepatic coma, unspecified chronicity documented in this encounter Additional Health Concerns Assessment Noted Time PHQ-9 Depression Total Score: 13 024 11:45 AM EDT documented as of this encounter Care Teams Development Intern Relationship Specialty Start Date End Date Laury Perez MD [address] [place] [address] PCP - General Family Medicine 10/31/21 documented as of this encounter
--- OUTSIDE RECORDS SUMMARY | 2024-07-19 11:51 | XMS_ITS | Encounter Summary ---
Author Organization [employer] Address [address] [facility] [address] [place] [address] Care Team Providers Care Technology Consultant Name Role Phone Laury Perez MD Primary Care Provider [phone] Encounter Details Date Type Department Care Team (Late st Contact Info) Description 07/18/[address] [facility] [address] [place] [address] Adrianne Beckwith Social History Tobacco Use Types [...] encounter Progress Notes * Adrianne Trevizo - 07/18/2024 3:21 PM EST [facility] Adrianne called and patient said he will come in tomorrow morning 07/19/24 to have his labs done.I explained how important it was to get the labs done. documented in this encounter Plan of Treatment Not on file documented as of this encounter Visit Diagnoses Not on filedocumented in this encounter Additional Health Concerns Assessment Noted Time PHQ-9 Depression Total Score: 13 024 11:45 AM EDT documented as of this encounter Care Teams Technology Consultant Relationship Specialty Start Date End Date Laury Perez MD [address] [place] [id number] PCP - General Family Medicine 10/31/21 documented as of this encounter
[2024-07-19 11:56] LABS: INTERNATIONAL NORM RATIO 1.1 (0.9-1.1); Prothrombin Time 13.3 SEC (10.9-12.4)
[2024-07-19 12:03] LABS: Anion Gap 11 (12-20); Blood Urea Nitrogen 13 mg/dL (9-16); Calcium 8.1 mg/dL (8.4-10.2); Carbon Dioxide 24 mmol/L (22-29); Chloride 108 mmol/L (96-108); Estimated Glomerular Filt Rate > 60; Glucose Random 110 mg/dL (60-115); Iron 45 mcg/dL (45-160); Percent Iron Saturation 15 % (15-50); Potassium 3.7 mmol/L (3.3-5.1); Sodium 139 mmol/L (135-145); Total Iron Binding Capacity 291 mcg/dL (228-428); Unsaturated Iron Binding 246 ug/dL
[2024-07-19 12:24] LABS: HIV AB/AG Nonreactive (Nonreactive); HIV Num 1 0.08 S/CO (0.00-0.99)
[2024-07-19 12:50] LABS: Folate 15.6 ng/mL (> or = 4.0); Vitamin B12 736 pg/mL (200-900)
[2024-07-20 13:13] LABS: HCV RNA PCR Qn 356000 IU/mL (NOT DETECTED); HCV RNA PCR Qn 5.55 Log IU/mL (NOT DETECTED)
== END 2024-07-19 10:09 | disposition home or self-care (01) ==
LOC: HO.HHCL 10:08
PROVIDERS: Internal Medicine; Visit Provider Family Medicine
DX: Z11.4 Encounter for screening for human immunodeficiency virus [HIV] (principal); H54.7 Unspecified visual loss; B19.20 Unspecified viral hepatitis C without hepatic coma
CPT/HCPCS: 36415; 80048; 81596; 82607; 82746; 83540; 85025; 85610; 87389; 87522; 87902

== ENCOUNTER 2024-08-02 17:15 | Emergency (ER) | payer MEDICAID, SELFPAY ==
[2024-08-02 17:34] VITALS: BP 134/78; PULSE 57; RESP 18; TEMP 36.4; O2SAT 97; BMI 45.8
--- NOTE | 2024-08-02 17:34 | ED_ITS ---
HPI - General Adult General Chief complaint: General Medical Stated complaint: Took wrong medication/ feeling dizzy Related Data Home Medications ?Medication ?Instructions ?Recorded ?Confirmed methadone 10 mg/mL oral concentrate 135 mg PO DAILY 05/27/22 01/28/24 Previous Rx's ?Medication ?Instructions ?Recorded cephalexin 500 mg capsule 500 mg PO Q6H 7 days #28 caps 11/07/22 doxycycline hyclate 100 mg tablet 100 mg PO BID 7 days #14 tabs 11/07/22 cephalexin 500 mg capsule 500 mg PO QID 10 days #40 caps 04/18/23 doxycycline hyclate 100 mg capsule 100 mg PO BID 10 days #20 caps 04/18/23 tramadol 50 mg tablet 50 mg PO Q8H PRN pain (scale score 02/15/24 4-6) #5 tabs cephalexin 500 mg capsule 500 mg PO QID 10 days #40 caps 04/10/24 doxycycline hyclate 100 mg capsule 100 mg PO BID 10 days #20 caps 04/10/24 Allergies Allergy/AdvReac Type Severity Reaction Status Date / Time No Known Allergies Allergy Verified 08/02/24 17:37 [No Known Allergies*] [facility] Past Medical History Medical History Leg ulcer Left against medical advice Morbid obesity with body mass index (BMI) of 40.0 or higher Bacteremia due to group B Streptococcus IV drug user Surgical History No pertinent past surgical history Family History Family History Other No family history of coronary artery disease Social History Social History Alcohol intake: current Alcohol intake frequency: does not drink Patient Tobacco Use Status: Current everyday Tobacco user Cigarette Packs Per Day: 1 Substance Use Type: Heroin Advance Directives: No Advance Directives Information Provided: No service: No Current occupational status: employed Physical Exam ED Vital Signs: Vital Signs - 24 hr 08/02/24 17:34 Temperature 97.5 F Pulse Rate 57 Respiratory Rate 18 Blood Pressure 134/78 Pulse Oximetry 97 Oxygen Delivery Method Room Air BMI result Body Mass Index 45.8 Course Course Course Narrative: RME, this is a rapid medical exam performed by Eddie Wells please refer to primary provider for complete H&P- 44-year-old male presents for evaluation of dizziness. He reports ?shooting up drugs. He was concerned he was given the wrong meds Medical Decision Making Lab Data 08/02/24 17:52 08/02/24 17:52 Labs: Lab Results 08/02/24 Range/Units 17:52 WBC 3.9 L (4.8-10.8) X10*3/uL RBC 3.90 L (4.60-5.80) X10*6/uL Hgb 10.3 L (14.0-18.0) g/dl Hct 31.8 L (42.0-52.0) % MCV 81.5 (80.0-98.0) fL MCH 26.4 L (27.0-33.0) pg MCHC 32.4 (31.0-36.0) g/dl RDW 17.8 H (11.0-16.0) % Plt Count 84 L (160-400) X10*3/uL MPV 10.7 (9.4-12.4) fL Immature Gran % (Auto) 1.0 H (0.0-0.4) % Neut % (Auto) 60.2 (45-73) % Lymph % (Auto) 24.3 (20-40) % [place] % (Auto) 12.0 H (2-11) % Eos % (Auto) 2.0 (0-4) % Baso % (Auto) 0.5 (0-2) % Lymph # (Auto) 1.0 L (1.2-4.9) X10*3/uL [place] # (Auto) 0.5 (0.1-1.2) X10*3/uL Eos # (Auto) 0.1 (0.0-0.4) X10*3/uL Baso # (Auto) 0.0 (0.0-0.2) X10*3/uL Abs Immat Gran (auto) 0.04 H (0.00-0.03) X10*3/uL Absolute Neuts (auto) 2.4 (2.0-8.3) x10*3/uL Absolute Nucleated RBC 0.020 H (0.0-0.012) X10*3/uL Nucleated RBC % (auto) 0.5 H (0.0-0.2) /100WBC Sodium 137 (135-145) mmol/L Potassium 4.1 (3.3-5.1) mmol/L Chloride 109 H (96-108) mmol/L Carbon Dioxide 23 (22-29) mmol/L Anion Gap 9 L (12-20) BUN 12 (9-16) mg/dL Creatinine 0.84 (0.5-1.4) mg/dL Estim Creat Clear Calc 159.8 Estimated GFR > 60 Random Glucose 87 (60-115) mg/dL Calcium 8.3 L (8.4-10.2) mg/dL Total Bilirubin 0.5 (0.0-1.0) mg/dL AST 88 H (5-37) U/L ALT 86 H (0-40) U/L Alkaline Phosphatase 72 (39-117) U/L Total Protein 8.1 H (6.5-8.0) g/dL Albumin 3.2 L (3.5-5.0) g/dL Lipase 21 (8-78) U/L Ethyl Alcohol < 10 mg/dL Influenza Type A (PCR) NEGATIVE (Negative) Influenza Type B (PCR) NEGATIVE (Negative) RSV RNA Qual (PCR) NEGATIVE (Negative) SARS-CoV-2 RNA (RT-PCR) NEGATIVE (Negative) Discharge Plan Discharge Clinical Impression: Substance abuse Patient Disposition: Left W/O Completing Treatment Prescriptions: No Action methadone 10 mg/mL Concentrate 135 mg PO DAILY cephalexin 500 mg capsule 500 mg PO Q6H 7 Days Qty: 28 0RF doxycycline hyclate 100 mg tablet 100 mg PO BID 7 Days Qty: 14 0RF doxycycline hyclate 100 mg capsule 100 mg PO BID 10 Days Qty: 20 0RF cephalexin 500 mg capsule 500 mg PO QID 10 Days Qty: 40 0RF doxycycline hyclate 100 mg capsule 100 mg PO BID 10 Days Qty: 20 0RF cephalexin 500 mg capsule 500 mg PO QID 10 Days Qty: 40 0RF tramadol 50 mg tablet 50 mg PO Q8H PRN (Reason: pain (scale score 4-6)) Qty: 5 0RF Discharge Date/Time: 08/02/24 23:10
--- NOTE | 2024-08-02 17:35 | ECG_ITS ---
Test Reason : DIZZINESS Blood Pressure : */* mmHG Vent. Rate : 55 BPM Atrial Rate : 55 BPM P-R Int : 136 ms QRS Dur : 114 ms QT Int : 474 ms P-R-T Axes : 42 14 31 degrees QTcB Int : 453 ms Sinus bradycardia Incomplete right bundle branch block Borderline ECG When compared with ECG of 25-May-2022 10:02, Vent. rate has decreased by 29 bpm Referred By: Cal Wells Electronically Signed By: JODY LÓPEZ
[2024-08-02 17:55] LABS: MANUAL DIFF FLAG NO
[2024-08-02 18:21] LABS: Basophils Percent Auto 0.5 % (0-2); Eosinophils Absolute Auto 0.1 X10*3/uL (0.0-0.4); Hematocrit 31.8 % (42.0-52.0); Hemoglobin 10.3 g/dl (14.0-18.0); Imm Gran Abs Auto 0.04 X10*3/uL (0.00-0.03); Lymphocytes Percent Auto 24.3 % (20-40); Mean Corpuscular HGB Conc 32.4 g/dl (31.0-36.0); Mean Corpuscular Hemoglobin 26.4 pg (27.0-33.0); Mean Corpuscular Volume 81.5 fL (80.0-98.0); Mean Platelet Volume 10.7 fL (9.4-12.4); Monocytes Absolute Auto 0.5 X10*3/uL (0.1-1.2); NRBC Pct Auto 0.5 /100WBC (0.0-0.2); Neutrophils Absolute Auto 2.4 x10*3/uL (2.0-8.3); Neutrophils Percent Auto 60.2 % (45-73); Red Cell Distribution Width 17.8 % (11.0-16.0); White Blood Count 3.9 X10*3/uL (4.8-10.8)
[2024-08-02 18:23] LABS: Alanine Aminotransferase 86 U/L (0-40); Albumin Level 3.2 g/dL (3.5-5.0); Alkaline Phosphatase 72 U/L (39-117); Anion Gap 9 (12-20); Aspartate Amino Transferase 88 U/L (5-37); Bilirubin Total 0.5 mg/dL (0.0-1.0); Blood Urea Nitrogen 12 mg/dL (9-16); Calcium 8.3 mg/dL (8.4-10.2); Carbon Dioxide 23 mmol/L (22-29); Chloride 109 mmol/L (96-108); Creatinine Clr Calc Pharmacy 159.8; Estimated Glomerular Filt Rate > 60; Ethanol < 10 mg/dL; Glucose Random 87 mg/dL (60-115); Lipase 21 U/L (8-78); Potassium 4.1 mmol/L (3.3-5.1); Sodium 137 mmol/L (135-145); Total Protein 8.1 g/dL (6.5-8.0)
[2024-08-02 18:42] LABS: Influenza A PCR NEGATIVE (Negative); Influenza B PCR NEGATIVE (Negative); Resp Syncy Virus RNA Qual PCR NEGATIVE (Negative); SARS COV2 PCR INHOUSE NEGATIVE (Negative)
[2024-08-02 18:51] LABS: Platelet Count 84 X10*3/uL (160-400)
== END 2024-08-02 23:10 | disposition left against medical advice (07) ==
PROVIDERS: Physician Assistant; Emergency Provider Emergency Medicine; PCP Family Medicine
DX: F19.10 Other psychoactive substance abuse, uncomplicated (principal); R42 Dizziness and giddiness; Z03.818 Encounter for observation for suspected exposure to other biological agents ruled out
CPT/HCPCS: 0241U; 80053; 80307; 83690; 85025; 93005; 99283

== ENCOUNTER → 2024-08-02 17:35 | Outpatient (BNV) | payer MEDICAID, SELFPAY | PROVIDERS: Emergency Provider Emergency Medicine; PCP Family Medicine; Visit Provider Internal Medicine | DX: I45.10 Unspecified right bundle-branch block (principal); R00.1 Bradycardia, unspecified | CPT/HCPCS: 93010 ==

== ENCOUNTER 2024-10-04 09:10 | Emergency (ER) | payer MEDICAID, SELFPAY ==
[2024-10-04 09:16] VITALS: BP 114/69; PULSE 79; RESP 18; TEMP 36.9; O2SAT 97; BMI 46.7
[2024-10-04 09:48] LABS: MANUAL DIFF FLAG NO
[2024-10-04 09:50] LABS: Basophils Percent Auto 0.3 % (0-2); Eosinophils Absolute Auto 0.1 X10*3/uL (0.0-0.4); Eosinophils Percent Auto 2.1 % (0-4); Hematocrit 31.6 % (42.0-52.0); Hemoglobin 10.4 g/dl (14.0-18.0); Imm Gran Abs Auto 0.01 X10*3/uL (0.00-0.03); Imm Gran Pct Auto 0.3 % (0.0-0.4); Lymphocytes Absolute Auto 0.9 X10*3/uL (1.2-4.9); Mean Corpuscular HGB Conc 32.9 g/dl (31.0-36.0); Mean Corpuscular Hemoglobin 27.2 pg (27.0-33.0); Mean Corpuscular Volume 82.5 fL (80.0-98.0); Mean Platelet Volume 10.2 fL (9.4-12.4); Monocytes Absolute Auto 0.4 X10*3/uL (0.1-1.2); Neutrophils Absolute Auto 2.4 x10*3/uL (2.0-8.3); Neutrophils Percent Auto 63.3 % (45-73); Red Blood Count 3.83 X10*6/uL (4.60-5.80); Red Cell Distribution Width 16.7 % (11.0-16.0); White Blood Count 3.8 X10*3/uL (4.8-10.8)
[2024-10-04 09:51] LABS: Platelet Count 82 X10*3/uL (160-400)
[2024-10-04 09:59] LABS: INTERNATIONAL NORM RATIO 1.2 (0.9-1.1); Prothrombin Time 13.2 SEC (10.9-12.4)
[2024-10-04 10:01] LABS: Partial Thromboplastin Time 30.8 SEC (26.0-36.8)
--- OUTSIDE RECORDS SUMMARY | 2024-10-04 10:10 | XMS_ITS | Encounter Summary ---
Author Organization [employer] Address [address] [facility] [address] [place] [address] Care Team Providers Care Public Relations Analyst Name Role Phone Laury Perez MD Primary Care Provider [phone] Reason for Visit * Reason Onset Date Comments Nurse Triage 10/03/2024 Encounter Details Date Type Department Care Team ([facility] st Contact Info) Description 10/03/2024 Telephone [facility] [address] [place] [address] Laury Perez MD [address] [place] [address] Nurse Triage Social History Tobacco Use Types Packs/Day Years Used Date Smoking Tobacco: Every Day Cigarettes Passive Smoke Exposure: Never Smokeless Tobacco: Never Alcohol Use Standard Drinks/Week Comments Never 0 (1 standard drink = 0.6 oz pur e alcohol) Depression Answer Date Recorded Patient Health Questionnaire-9 Score 0 08/01/2024 Patient Health Questionnaire-9 Score 0 08/01/2024 Last PHQ-9: Questionnaire Data Not on file 0 08/01/2024 Housing Stability Answer Date Recorded What is [...] t he electric, gas, oil or water [employer] threatened to shut off services in your home? No 02/23/2024 Depression Answer Date Recorded Patient Health Questionnaire-2 Score 0 08/01/2024 Internet Access Answer Date Recorded Internet Access Q1 Yes 02/23/2024 Internet Access Q2 Not on file 02/23/2024 Sex and Gender Information Value Date Recorded Sex Assigned at Male 03/24/2022 10:15 AM EDT Legal Sex Male 10:15 AM EDT Gender Identity Male 03/24/2022 10:15 AM EDT Sexual Orientation Straight 03/24/2022 10 :15 AM EDT documented as of this encounter Miscellaneous Notes * Telephone Encounter - Maria L Fuentes RN - 10/04/2024 9:06 AM EDT TC to pt. No answer. Vm left with clinic number for pt to call back. * Telephone Encounter - Sandra Mckay RN - 10/03/2024 8:42 AM EDT Call returned to Alessandro Russo to triage below. Reports having 2 episodes of bloody stool with BM last week. Per pt again blood in stool today, toilet water turned red. Mild abd cramping. No rectal pain. No straining or constipation. Pt denies any vomiting. Mild nausea. Per pt also noted large blood clots. No Hemorrhoids. Pt advised of disposition, agrees to seek [facility] ER now for exam. Pt advised to return call after discharge. Sent to team for [facility] ER status check PRN. Protocol Used: Rectal Bleeding (Adult) Protocol-Based Disposition: Go to ED Now Positive Triage Question: * Moderate rectal bleeding (small blood clots, passing blood without stool, or toilet water turns red) more than once a day * All higher-acuity triage questions were negative Care Advice Discussed: * Reassurance and Education - Mild Rectal Bleeding * Reasons To Call Back - Bleeding increases in amount - You become worse * Telephone Encounter - Clau Borrero 10/03/2024 8:31 AM EDT Symptom: Rectal Bleeding Outcome: Talk to a nurse or provider within 15 minutes Reason: Large amount of blood The caller accepted this outcome. documented in this encounter Plan of Treatment Not on file documented as of this encounter Visit Diagnoses Not on filedocumented in this encounter Additional Health Concerns Assessment Noted Time PHQ-9 Depression Total Score: 0 08/02/19 25 2:30 PM EDT documented as of this encounter Care Teams Public Relations Analyst Relationship Specialty Start Date End Date Laury Perez MD [address] [place] [address] PCP - General Family Medicine 10/31/21 documented as of this encounter
--- OUTSIDE RECORDS SUMMARY | 2024-10-04 10:10 | XMS_ITS | Encounter Summary ---
Author Organization [employer] Address [address] [facility] [address] [place] [address] Care Team Providers Care Floor Clerk Name Role Phone Laury Perez MD Primary Care Provider [phone] Encounter Details Date Type Department Care Team (Late st Contact Info) Description 10/04/2024 Orders Only GENERIC EXTERNAL DATA DEPARTMENT Provider, Generic External Data Social History Tobacco Use Types Packs/Day Years [...] AM EDT documented as of this encounter Plan of Treatment Not on file documented as of this encounter Procedures Procedure Name Priority Date/Time Associated Diagnosis Comments CBC WITH AUTO DIFFERENTIAL Routine 10/04/2024 9:45 AM EDT APTT Routine 10/04/2024 9:45 AM EDT PROTHROMBIN TIME-INR Routine 10/04/2024 9:45 AM EDT documented in this encounter Results * Partial Thromboplastin Time, Activated (APTT) (10/04/2024 9:45 AM EDT) Partial Thromboplastin Time 30.8 26.0 - 36.8 SEC [facility] Comment:For information rega rding the monitoring of direct thrombininhibitors, please refer to Pharmacy. 10/04/2024 9:45 AM EDT 10/04/2024 9:47 AM EDT us Generic External Data Provider LAB BLOOD ORDERAB LES Final Result Performing Organization Address City/State/[facility] Co de Phone Number [facility] [address] [place] [phone] * (ABNORMAL) Prothrombin Time-INR (10/04/2024 9:45 AM EDT) Prothrombin Time 13.2(H) 10.9 - 12.4 SEC [facility] INTERNATIONAL NORM RATIO 1.2(H) 0.9 - 1.1 [facility] Comment:INTERNATIONAL NORMAL IZED RATIO (INR) REFERENCE RANGES Reference RangeFor patients not on anticoagulant therapy: 0.9 - 1.1INR ranges for oral anticoagulanttherapy:For prevention and treatment of venous thrombosis and pulmonary embolism: 2.0 - 3.0For acute myocardial infarction with aspirin therapy: 2.0 - 3.0For acute myocardial infarction without aspirin therapy: 3.0 - 4.0For patients with mechanical prosthetic heart valves: 2.5 - 3.5 10/04/2024 9:45 AM EDT 10/04/2024 9:47 AM EDT us Generic External Data Provider LAB BLOOD ORDERAB LES Final Result [facility] [address] [place] [phone] * (ABNORMAL) CBC auto differential (10/04/2024 9:45 AM EDT) White Blood Count 3.8(L) 4.8 - 10.8 X10*3/uL [facility] Red Blood Count 3.83(L) 4.60 - 5.80 X10*6/uL [facility] Hemoglobin 10.4(L) 14.0 - 18.0 g/dl [facility] Hematocrit 31.6(L) 42.0 - 52.0 % [facility] Mean Corpuscular Volume 82.5 80.0 - 98.0 fL [facility] Mean Corpuscular Hemoglobin 27.2 27.0 - 33.0 pg [facility] Mean Corpuscular HGB Conc 32.9 31.0 - 36.0 g/dl [facility] Red Cell Distribution Width 16.7(H) 11.0 - 16.0 % [facility] Platelet Count 82(L) 160 - 400 X10*3/uL [facility] Mean Platelet Volume 10.2 9.4 - 12.4 fL [facility] Neutrophils Percent Auto 63.3 45 - 73 % [facility] Imm Gran Pct Auto 0.3 0.0 - 0.4 % [facility] Lymphocytes Percent Auto 23.0 20 - 40 % [facility] Monocytes Percent Auto 11.0 2 - 11 % [facility] Eosinophils Percent Auto 2.1 0 - 4 % [facility] Basophils Percent Auto 0.3 0 - 2 % [facility] NRBC Pct Auto 0.0 0.0 - 0.2 /100WBC [facility] Neutrophils Absolute Auto 2.4 2.0 - 8.3 x10*3/uL [facility] Imm Gran Abs Auto 0.01 0.00 - 0.03 X10*3/uL [facility] Lymphocytes Absolute Auto 0.9(L) 1.2 - 4.9 X10*3/uL [facility] Monocytes Absolute Auto 0.4 0.1 - 1.2 X10*3/uL [facility] Eosinophils Absolute Auto 0.1 0.0 - 0.4 X10*3/uL [facility] Basophils Absolute Auto 0.0 0.0 - 0.2 X10*3/uL [facility] NRBC Abs Auto 0.000 0.0 - 0.012 X10*3/uL [facility] 10/04/2024 9:45 AM EDT 10/04/2024 9:47 AM EDT us Generic External Data Provider LAB BLOOD ORDERAB LES Final Result Performing Organization Address City/State/[facility] Co de Phone Number [facility] [address] [place] [address] [phone] documented in this encounter Visit Diagnoses Not on filedocumented in this encounter Additional Health Concerns Assessment Noted Time PHQ-9 Depression Total Score: 0 08/02/19 25 2:30 PM EDT documented as of this encounter Care Teams Floor Clerk Relationship Specialty Start Date End Date Laury Perez MD [address] [place] [address] PCP - General Family Medicine 10/31/21 documented as of this encounter
--- OUTSIDE RECORDS SUMMARY | 2024-10-04 10:10 | XMS_ITS | Encounter Summary ---
Author Organization [employer] Address [address] [facility] [address] [place] [address] Care Team Providers Care Building Contractor Name Role Phone Laury Perez MD Primary Care Provider [phone] Encounter Details Date Type Department Care Team (Late st Contact Info) Description 08/23/2024 Telephone [facility] MED[facility]INE [address] [place] [address] Cassidy Tran, PharmD [address] [place] [address] Social History Tobacco Use Types Packs/Day Years [...] is your housing situation today? I have michaelakristie roberson 02/23/[address] you [...] t he electric, gas, oil or water [employer] threatened to shut off services in your [...] documented as of this encounter Care Teams Building Contractor Relationship Specialty Start Date End Date Laury Perez MD [address] [place] [phone] PCP - General Family Medicine 10/31/21 documented as of this encounter
--- OUTSIDE RECORDS SUMMARY | 2024-10-04 10:11 | XMS_ITS | Clinical Summary ---
Author Organization [employer] Address [address] [facility] [address] [place] [address] Care Team Providers Care Human Resources Intern Name Role Phone Laury Perez MD Primary Care Provider [phone] Allergies No known active allergies Medications * This document contains information received from the source organization and may not represent a complete record from that organization. albuterol 108 (90 Base) MCG/ACT inhaler Inhale 2 puffs every 4 (four) hours. 2 Active betamethasone dipropionate (Diprosone) 0.05 % ointment APPLY ON THE LEG WOUND RAW SURFACE DAILY 4 Active naloxone (Narcan) 4 mg/0.1 mL nasal spray Administer 1 spray (4 mg) into affected nostril(s) if needed for opioid reversal. 2 each 2 4 Active methadone (Dolophine) 10 MG/5ML solutionIndicatio ns:[facility] Take 155 mg by mouth Once per day. Active Glecaprevir-Pibre ntasvir (Mavyret) 100-40 MG tablet Take 3 tablets by mouth Once per day. 84 tablet 1 5 Active Active Problems Problem Noted Date Diagnosed [...] to use same-day appointments with [facility] for OP individual therapy. clinician will provide [...] Encounters Date Type Department Care Team Description 10/04/2024 Orders Only GENERIC EXTERNAL DATA DEPARTMENT Provider, Generic External Data 10/03/[address] [address] Laury Perez MD Nurse Triage 09/28/2024 Patient Outreach [facility] [address] [place], [place] [phone] Laury Perez MD Care Coordination (C3/CM F/U) 09/13/2024 Patient Outreach [address] [address] Laury Perez MD Care Coordination (C3/CM F/U) 08/30/2024 Patient Outreach [address] [address] Laury Perez MD Care Coordination (Outreach) 08/23/[address] [address] Cassidy Tran, PharmD 08/22/[address] [address] Pao Olvera, RN 08/16/2024 Patient Outreach [address] [address] Laury Perez MD Care Coordination (C3/CM follow up call) 08/05/2024 Population Health Risk Score [facility] (C3) Department [address] [phone] Provider, Population Health Generic 08/04/2024 Telephone [facility] [address] [place] [address] Laury Perez MD Care Coordination ([facility] f/u call) 08/03/2024 Patient Outreach [facility] [address] [place] [address] Laury Perez MD Care Coordination (Outreach) 08/02/2024 Orders Only GENERIC EXTERNAL DATA DEPARTMENT Provider, Generic External Data 08/01/2024 2:00 PM EDT Office Visit [facility] MEDICINE [address] [place] [phone] Aleida Gresham MD Hepatitis C virus infection without hepatic coma, unspecified chronicity (Primary Dx) 08/01/2024 Travel 07/26/2024 9:00 AM EST Telemedicine [facility]INE [address] [place] [phone] Pao Olvera RN Hep C w/o coma, chronic (CMS/HCC) [B18.2] 07/26/2024 Telephone [facility] [address] [place] [address] Pao Olvera RN 07/26/2024 Travel 07/19/2024 Orders Only [facility] [address] [place] [address] Laury Peerz MD 07/18/2024 Telephone [facility] [address] [place] [address] Adrianne Beckwith 07/18/2024 Orders Only [facility] [address] [place] [address] Julee Wilkerson RN Hepatitis C virus infection without hepatic coma, unspecified chronicity from Last 3 Months Immunizations Name Administration [...] Sign Reading Time Taken Comments Blood Pressure 138/84 08/01/2024 2:27 PM EDT Pulse 73 08/01/2024 2:27 PM EDT Temperature 36.7 ??C (98 ??F) 08/01/2024 2:27 PM EDT Respiratory Rate 20 08/01/2024 2:27 PM EDT Oxygen Saturation 98% 06/06/2024 5:47 PM EST Inhaled Oxygen Concentration - - Weight 146 kg (321 lb) 08/01/2024 2:27 PM EDT Height 177 cm (5' 9.69 ) 04/14/2024 11:30 AM EST Body Mass Index 46.47 04/14/2024 11:30 AM EST Plan of Treatment Health Maintenance Due Date Last Done Comments CT Colonography 1979 Colonoscopy 1979 Colorectal Cancer Screening 1979 FIT DNA/Cologuard 1979 FIT 1979 FOBT 1979 Sigmoidoscopy 1979 Family Planning (PISQ) 07/28/1994 Hepatitis A Vaccines (1 of 2 - Risk 2-dose series) 07/28/1998 Hepatitis B Vaccines (1 of 3 - 19+ 3-dose series) 07/28/1998 COVID-19 Vaccine ( season) 2024 06/04/2022, 10/01/2021, 10/25/2020, Additional history exists Influenza Vaccine (#1) 2024 Alcohol/Substance Use Screening 08/01/2025 08/01/2024 Depression Screening 08/01/2025 08/01/2024, 08/02/19 Tobacco Screening 08/01/2025 08/01/2024 SDOH Screening 08/03/2025 08/03/2024 Lipid Panel 03/02/2029 03/02/2024, 10/24/2021 Zoster Vaccines (1 of 2) 07/28/2029 DTaP/Tdap/Td Vaccines (2 - Td or Tdap) 03/01/2034 03/01/2024 RSV Patients and Patients Aged 60 years or older (1 - 1-dose 75+ series) 07/28/2054 Pneumococcal Vaccine: Pediatrics (0 to 5 Years) and At-Risk Patients (6 to 49) Years) Completed 03/01/2024 HIV Screening Completed 07/19/2024, 01/2024, 05/25/2022, Additional history exists HIB Vaccines Aged Out No longer eligi [...] Procedure Name Priority Date/Time Associated Diagnosis Comments APTT Routine 10/04/2024 9:45 AM EDT PROTHROMBIN TIME-INR Routine 10/04/2024 9:45 AM EDT CBC WITH AUTO DIFFERENTIAL Routine 10/04/2024 9:45 AM EDT CBC WITH AUTO DIFFERENTIAL Routine 08/02/2024 5:52 PM EDT ETHANOL Routine 08/02/2024 5:52 PM EDT LIPASE Routine 08/02/2024 5:52 PM EDT COMPREHENSIVE METABOLIC PANEL Routine 08/02/2024 5:52 PM EDT SARS COV2/INFLUENZA A/B AND RSV RNA QL NAAT Routine 08/02/2024 5:52 PM EDT LIVER FIBROSIS, FIBROTEST ACTITEST PANEL Routine 07/19/2024 10:12 AM EST HCV RNA BY PCR, QN RFX CARLOS Routine 07/19/2024 10:12 AM EST HIV 1/2 ANTIGEN/ANTIBODY, FOURTH GENERATION W/RFL Routine 07/19/2024 10:12 AM EST PROTHROMBIN TIME-INR Routine 07/19/2024 10:12 AM EST BASIC METABOLIC PANEL Routine 07/19/2024 10:12 AM EST Loss of vision VITAMIN B12/FOLATE, SERUM PANEL Routine 07/19/2024 10:12 AM EST Loss of vision IRON AND TOTAL IRON BINDING CAPACITY Routine 07/19/2024 10:12 AM EST Loss of vision CBC WITH AUTO DIFFERENTIAL Routine 07/19/2024 10:12 AM EST Loss of vision LIPID PANEL, STANDARD Routine 03/02/2024 8:37 AM EDT Class 3 severe obesity without serious comorbidity with body mass index (BMI) of 45.0 to 49.9 in adult, unspecified obesity type (CMS/[facility]) from Last 3 Months or Most Recently Relevant to Health Maintenance Results * (ABNORMAL) CBC auto differential (10/04/2024 9:45 AM EDT) Only the most recent of3 resultswithin the time period is included. White Blood Count 3.8(L) 4.8 - 10.8 X10*3/uL [facility] Red Blood Count 3.83(L) 4.60 - 5.80 X10*6/uL [facility] Hemoglobin 10.4(L) 14.0 - 18.0 g/dl [facility] Hematocrit 31.6(L) 42.0 - 52.0 % [facility] Mean Corpuscular Volume 82.5 80.0 - 98.0 fL [facility] Mean Corpuscular Hemoglobin 27.2 27.0 - 33.0 pg [facility] Mean Corpuscular HGB Conc 32.9 31.0 - 36.0 g/dl [facility] Red Cell Distribution Width 16.7(H) 11.0 - 16.0 % [facility] Platelet Count 82(L) 160 - 400 X10*3/uL [facility] Mean Platelet Volume 10.2 9.4 - 12.4 fL [facility] Neutrophils Percent Auto 63.3 45 - 73 % [facility] Imm Gran Pct Auto 0.3 0.0 - 0.4 % [facility] Lymphocytes Percent Auto 23.0 20 - 40 % [facility] Monocytes Percent Auto 11.0 2 - 11 % [facility] Eosinophils Percent Auto 2.1 0 - 4 % [facility] Basophils Percent Auto 0.3 0 - 2 % [facility] NRBC Pct Auto 0.0 0.0 - 0.2 /100WBC [facility] Neutrophils Absolute Auto 2.4 2.0 - 8.3 x10*3/uL [facility] Imm Gran Abs Auto 0.01 0.00 - 0.03 X10*3/uL [facility] Lymphocytes Absolute Auto 0.9(L) 1.2 - 4.9 X10*3/uL [facility] Monocytes Absolute Auto 0.4 0.1 - 1.2 X10*3/uL [facility] Eosinophils Absolute Auto 0.1 0.0 - 0.4 X10*3/uL [facility] Basophils Absolute Auto 0.0 0.0 - 0.2 X10*3/uL [facility] NRBC Abs Auto 0.000 0.0 - 0.012 X10*3/uL [facility] 10/04/2024 9:45 AM EDT 10/04/2024 9:47 AM EDT us Generic External Data Provider LAB BLOOD ORDERAB LES Final Result Performing Organization Address City/[facility]/ZIP Co de Phone Number [facility] [address] [place] [phone] * Partial Thromboplastin Time, Activated (APTT) (10/04/2024 9:45 AM EDT) Partial Thromboplastin Time 30.8 26.0 - 36.8 SEC [facility] Comment:For information rega rding the monitoring of direct thrombininhibitors, please refer to Pharmacy. 10/04/2024 9:45 AM EDT 10/04/2024 9:47 AM EDT us Generic External Data Provider LAB BLOOD ORDERAB LES Final Result Performing Organization Address [facility]/ZIP Co de Phone Number [facility] [address] [place] [phone] * (ABNORMAL) Prothrombin Time-INR (10/04/2024 9:45 AM EDT) Only the most recent of2 resultswithin the time period is included. Pathologist [facility] Prothrombin Time 13.2(H) 10.9 - 12.4 SEC [facility] INTERNATIONAL NORM RATIO 1.2(H) 0.9 - 1.1 [facility] Comment:INTERNATIONAL NORMAL IZED RATIO (INR) REFERENCE [...] 9:45 AM EDT 10/04/2024 9:47 AM EDT Generic External Data Provider LAB BLOOD ORDERAB LES Final Result Performing Organization Address [facility] Co de Phone Number [facility] [address] [place] [phone] * Ethanol (08/02/2024 5:52 PM EDT) [facility] ETHANOL (MG/DL) IN SER/PLAS <10 mg/dL [facility] Comment:Serum/plasma ethanol results are to be used formedical/treatment purposes only. 08/02/2024 5:52 PM EDT 08/02/2024 5:55 PM EDT Generic External Data Provider LAB BLOOD ORDERAB LES Final Result Performing Organization Address [facility] Co de Phone Number [facility] [address] [place] [phone] * SARS-CoV-2 RNA, Influenza A/B, and RSV RNA, Ql NAAT (08/02/2024 5:52 PM EDT) [facility] Influenza A PCR NEGATIVE Negative [facility] Influenza B PCR NEGATIVE Negative [facility] Resp Syncy Virus RNA Qual PCR NEGATIVE Negative [facility] SARS COV2 PCR NEGATIVE Negative [facility] Comment:All test results mus t be correlated with clinical findings.Negative results do not preclude SARS-CoV2, influenza Avirus, influenza B virus and/or RSV infectionand should not be used as the sole basis for treatment orother patient management decisions. Negative results must becombined with clinical observations, patient history, andepidemiological information.This test has not been evaluated for monitoring treatment ofinfection.This test has been authorized by the FDA under an EmergencyUse Authorization (EUA) for use by authorized laboratories.Testing performed on the [employer] GeneXpert utilizingreal-time RT-PCR.All SARS CoV2 and positive influenza A/B results arereported to [facility]. 08/02/2024 5:52 PM EDT 08/02/2024 5:55 PM EDT Generic External Data Provider LAB MICROBIOLOGY - GENERAL ORDERABLES Final Result Performing Organization Address [facility]/ZIP Co de Phone Number [facility] [address] [place] [phone] [phone] * Lipase (08/02/2024 5:52 PM EDT) Pathologist [facility] Lipase 21 8 - 78 U/L [facility] 08/02/2024 5:52 PM EDT 08/02/2024 5:55 PM EDT Generic External Data Provider LAB BLOOD ORDERAB LES Final Result Performing Organization Address [facility]/ZIP Co de Phone Number [facility] [address] [place] [address] [phone] * (ABNORMAL) Comprehensive Metabolic Panel (08/02/2024 5:52 PM EDT) Sodium 137 135 - 145 mmol/L [facility] Potassium 4.1 3.3 - 5.1 mmol/L [facility] Chloride 109(H) 96 - 108 mmol/L [facility] Carbon Dioxide 23 22 - 29 mmol/L [facility] Anion Gap 9(L) 12 - 20 [facility] Urea Nitrogen (BUN) 12 9 - 16 mg/dL [facility] Creatinine, Serum 0.84 0.5 - 1.4 mg/dL [facility] Creatinine Clr Calc Pharmacy 159.8 [facility] Comment:eGFR (calculated fro m the MDRD study equation) and eCrCl(calculated from the Cockcroft-Gault equation) are based ondifferent parameters and may not yield comparable results.If eCrCl result is absurd, please check patient'sheight/weight. Estimated Glomerular Filt Rate >60 [facility] Comment:Chronic Kidney Disea se: Estimated GFR < 60 mL/min/1.02x0Rrbjvr Kidney Disease: Estimated GFR < 15 mL/min/1.73m2 Glucose 87 60 - 115 mg/dL [facility] Calcium 8.3(L) 8.4 - 10.2 mg/dL [facility] Bilirubin, Total 0.5 0.0 - 1.0 mg/dL [facility] Aspartate Amino Transferase 88(H) 5 - 37 U/L [facility] Alanine Aminotransferase 86(H) 0 - 40 U/L [facility] Total Protein 8.1(H) 6.5 - 8.0 g/dL [facility] Albumin Level 3.2(L) 3.5 - 5.0 g/dL [facility] Alkaline Phosphatase 72 39 - 117 U/L [facility] 08/02/2024 5:52 PM EDT 08/02/2024 5:55 PM EDT us Generic External Data Provider LAB BLOOD ORDERAB LES Final Result [facility] [address] [place] [phone] [phone] * (ABNORMAL) HCV RNA BY PCR, QN RFX CARLOS (07/19/2024 10:12 AM EST) HCV RNA PCR QN [id number](A ) NOT DETECTED IU/mL [facility] HCV RNA PCR QN 5.55(A) NOT DETECTED Log IU/mL [facility] HCV RNA COMMENT SEE NOTE [facility] Comment:For additional infor mation, please refer [email or web address] [email or web address](This link is being provided for informational/Educational purposes only.)THIS TEST WAS PERFORMED AT:[employer] [place] [phone] DUKES MD HCV RNA GENOTYPE,LIPA 1a [facility] Comment:The method used in t his test is RT-PCR and reversehybridization (Line Probe) of the 5' UTR and coreregion of the HCV genome.The analytical performance characteristics of thisassay have been determined [place]. The modificationshave not been cleared or approved by the FDA. Thisassay has been validated pursuant to the CLIAregulations and is used for clinical purposes.For additional information, please refer [email or web address] [email or web address]/[email or web address](This link is being provided for informational/educational purposes only.)THIS TEST WAS PERFORMED AT:for; to (do) Centers/[facility] [place] [phone] CALLOWAY MD,PHD 07/19/2024 10:1 2 AM EST 07/19/2024 11:30 AM EST us Lauyr Perez MD LAB BLOOD ORDERABLES Final Re sult [facility] [address] [place] [phone] * Vitamin B12/Folate, Serum Panel (07/19/2024 10:12 AM EST) Pathologist [facility] Vitamin B12 736 200 - 900 pg/mL [facility] Comment:NORMAL 200-900 PG/ML INDETERMINATE 160-199 PG/ML DEFICIENT < 160 PG/ML Folate 15.6 > or = 4.0 ng/mL [facility] Comment:Reference Values:> o r = 4.0 ng/mL< 4.0 ng/mL suggests folate deficiency Methotrexate, aminopterin and folinic acid(leucovorin) are chemotherapeutic agents whose molecularstructures are similar to folate; therefore, the Architectfolate assay cannot be used for patients using these drugs. Blood Venous blood specimen / Unknown 07/19/2024 10:12 AM EST 07/19/2024 11:30 AM EST us Papa Solomon MD LAB BLOOD ORDERABL ES Final Result [facility] [address] [place] [phone] * (ABNORMAL) Liver Fibrosis (HCV), FibroTest-ActiTest Panel (07/19/2024 10:12 AM EST) Liver Fibrosis Score 0.25 [facility] Liver Fibrosis Stage F0-F1 [facility] Liver Fibrosis Interpretation SEE NOTE [facility] Comment:no fibrosisFibro Julianne t Score (f) Metavir Score f>=0 and f<=0.21 : F0 (no fibrosis)f>0.21 and f<=0.27 : F0-F1 (no fibrosis)f>0.27 and f<=0.31 : F1 (minimal fibrosis)f>0.31 and f<=0.48 : F1-F2 (minimal fibrosis)f>0.48 and f<=0.58 : F2 (moderate fibrosis)f>0.58 and f<=0.72 : F3 (advanced fibrosis)f>0.72 and f<=0.74 : F3-F4 (advanced fibrosis)f>0.74 and f<=1.00 : F4 (severe fibrosis) Nec Inflam Act Score 0.36 [facility] Nec Inflam Act Grade A1 [facility] Nec Inflam Act Interpretation SEE NOTE [facility] Comment:minimal activityActi Test Score (a) Metavir Score a>=0 and a<=0.17 : A0 (no activity)a>0.17 and a<=0.29 : A0-A1 (no activity)a>0.29 and a<=0.36 : A1 (minimal activity)a>0.36 and a<=0.52 : A1-A2 (minimal activity)a>0.52 and a<=0.60 : A2 (significant activity)a>0.60 and a<=0.62 : A2-A3 (significant activity)a>0.62 and a<=1.00 : A3 (severe activity) KPP-Asfbl-9-Macroglo bulin 239 106 - 279 mg/dL [facility] FIB-Haptoglobin 91 43 - 212 mg/dL [facility] FIB-Apolipoprotein A1 160 94 - 176 mg/dL [facility] FIB-Total Bilirubin 0.4 0.2 - 1.2 mg/dL [facility] FIB-GGT 36 3 - 95 U/L [facility] FIB-ALT 63(A) 9 - 46 U/L [facility] Reference ID [id number] [facility] Footnote SEE NOTE [facility] Comment: The reliability of results is dependent on compliance withthe preanalytical and analytical conditions recommended byBioPredictive. The tests have to be deferred for: acutehemolysis, acute hepatitis, acute inflammation, extrahepatic cholestasis. The advice of a specialist should besought for interpretation in chronic hemolysis and Gilbert'ssyndrome. The test interpretation is not validated in livertransplant patients. Isolated extreme values of one of thecomponents should lead to caution in interpreting theresults. In case of discordance between a biopsy result lizbeth test, it is recommended to seek the advice of aspecialist. The causes of these discordances could be due toa flaw of the test or to a flaw in the biopsy: i.e. a liverbiopsy has a 33% variability rate for one fibrosis stage.FibroTest is interpretable for chronic hepatitis B and C,alcoholic and non alcoholic steatosis. ActiTest isinterpretable for chronic hepatitis B and C.The performance characteristics have been determined by[facility]. Ithas not been cleared or approved by the U.S. Food and DrugAdministration. Performance characteristics refer to theanalytical performance of the test.[employer], [employer], the associated logo, [employer] and all associated [employer] ferrara are theregistered trademarks of [employer]. All third partymarks - (R) and (TM) - are the property of their respectiveowners. (C) [id number] [employer]. Allrights reserved.THIS TEST WAS PERFORMED AT:for; to (do) [email or web address] [place] MIRANDA ??[phone] ALTMAN MD,PHD,ARABELLA 07/19/2024 10:1 2 AM EST 07/19/2024 11:30 AM EST us Laury Perez MD LAB BLOOD ORDERABLES Final Re sult Performing Organization Address [facility] Co de Phone Number [facility] [address] [place] [phone] * Iron And Total Iron Binding Capacity (07/19/2024 10:12 AM EST) Iron 45 45 - 160 mcg/dL [facility] Total Iron Binding Capacity 291 228 - 428 mcg/dL [facility] Percent Iron Saturation 15 15 - 50 % [facility] Unsaturated Iron Binding 246 ug/dL [facility] Blood Venous blood specimen / Unknown 07/19/2024 10:12 AM EST 07/19/2024 11:30 AM EST us Papa Solomon MD LAB BLOOD ORDERABL ES Final Result Performing Organization Address [facility]/ZIP Co de Phone Number [facility] [address] [place] [phone] * HIV-1/2 Antigen and Antibodies, Fourth Generation, with Reflexes (07/19/2024 10:12 AM EST) HIV AB/AG Nonreactive Nonreactive [facility] Comment:HIV-1 p24 Ag and/or HIV-1/HIV-2 Ab not detected.A test result that is nonreactive does not exclude thepossibility of exposure to or infection with HIV-1 and/orHIV-2. Nonreactive results in this assay for individualswith prior exposure to HIV-1 and/or HIV-2 may be due toantigen and antibody levels that are below the limit ofdetection of this assay.The Intact Vascular HIV Ag/Ab Combo assay result andsupplemental assay results should be interpreted inconjunction with the patient's clinical presentation,history and other laboratory results. If the results areinconsistent with clinical evidence, additional testing issuggested to confirm the result. 07/19/2024 10:1 2 AM EST 07/19/2024 11:30 AM EST us Laury Perez MD LAB BLOOD ORDERABLES Final Re sult [facility] [address] [place] [phone] * (ABNORMAL) Basic Metabolic Panel (07/19/2024 10:12 AM EST) Sodium 139 135 - 145 mmol/L [facility] Potassium 3.7 3.3 - 5.1 mmol/L [facility] Chloride 108 96 - 108 mmol/L [facility] Carbon Dioxide 24 22 - 29 mmol/L [facility] Anion Gap 11(L) 12 - 20 [facility] Urea Nitrogen (BUN) 13 9 - 16 mg/dL [facility] Creatinine, Serum 0.79 0.5 - 1.4 mg/dL [facility] Estimated Glomerular Filt Rate >60 [facility] Comment:Chronic Kidney Disea se: Estimated GFR < 60 mL/min/1.38u9Apomol Kidney Disease: Estimated GFR < 15 mL/min/1.73m2 Glucose 110 60 - 115 mg/dL [facility] Calcium 8.1(L) 8.4 - 10.2 mg/dL [facility] Blood Venous blood specimen / Unknown 07/19/2024 10:12 AM EST 07/19/2024 11:30 AM EST us Papa Solomon MD LAB BLOOD ORDERABL ES Final Result Performing Organization Address [facility] de Phone Number [facility] [address] [place] [phone] * Lipid Panel, Standard (03/02/2024 8:37 AM EDT) Triglycerides 53 <150 mg/dL [facility] Comment:Desirable Triglyceri de: less than 150 mg/dLBorderline High Triglyceride 150-199 mg/dLHigh Triglyceride: 200-499 mg/dLVery High Triglyceride: greater than or equal to 5OO mg/dL Cholesterol 99 <200 mg/dL [facility] Comment:Desirable Cholestero l: less than 200 mg/dLBorderline High Cholesterol: 200-239 mg/dLHigh Cholesterol: greater than 239 mg/dL LDL Cholesterol Calculated 45 <100 mg/dL [facility] Comment:Desirable LDL: less than 100 mg/dLNear Optimal/Above Optimal LDL: 110- 129 mg/dLBorderline High LDL: 130-159 mg/dLHigh LDL: 160-189 mg/dLVery High LDL: greater than or equal to 190 mg/dL HDL Cholesterol 44 >40 mg/dL [facility] [facility] Comment:Desirable HDL: great er than 40 mg/dL Note: This HDL assay may give artificially low results in patients with liver disease. Blood Venous blood specimen / Unknown 03/02/2024 8:37 AM EDT 03/02/2024 8:37 AM EDT us Laury Perez MD LAB BLOOD ORDERABLES Final Re sult Performing Organization Address [facility] Co de Phone Number [facility] [address] [place] [phone] from Last 3 Months or Most Recently Relevant to Health Maintenance Insurance [facility] C3 Care Teams Human Resources Intern Relationship Specialty Start Date End Date Laury Perez MD [address] [place] [phone] PCP - General Family Medicine 10/31/21
[2024-10-04 10:21] LABS: Alanine Aminotransferase 96 U/L (0-40); Anion Gap 11 (12-20); Aspartate Amino Transferase 100 U/L (5-37); Bilirubin Total 0.5 mg/dL (0.0-1.0); Blood Urea Nitrogen 10 mg/dL (9-16); Calcium 8.2 mg/dL (8.4-10.2); Carbon Dioxide 24 mmol/L (22-29); Chloride 106 mmol/L (96-108); Creatinine Clr Calc Pharmacy 169.6; Estimated Glomerular Filt Rate > 60; Glucose Random 146 mg/dL (60-115); Sodium 137 mmol/L (135-145)
--- NOTE | 2024-10-04 12:03 | ED.GIBLEED ---
HPI - GI Bleed General Chief complaint: GI Bleed Stated complaint: Rectal bleeding Time Seen by Provider: 10/04/24 09:36 Source: patient Mode of arrival: ambulatory Limitations: no limitations History of Present Illness HPI Narrative: this is a 44 years old male presented to the emergency department complaining of rectal bleeding he has been having rectal bleeding on and off for about 2 weeks 1st time was 2 weeks ago then since last night when he he wipes himself no vomiting, no melena, stools, no abdominal pain whatsoever he is ambulatory to the emergency department Onset (ago): week(s) (2) Pain Consistency: intermittent Severity: mild Relieving factors: none Exacerbating factors: none Context: liver disease Associated symptoms: denies other symptoms Related Data Home Medications ?Medication ?Instructions ?Recorded ?Confirmed methadone 10 mg/mL oral concentrate 135 mg PO DAILY 05/27/22 01/28/24 Previous Rx's ?Medication ?Instructions ?Recorded cephalexin 500 mg capsule 500 mg PO Q6H 7 days #28 caps 11/07/22 doxycycline hyclate 100 mg tablet 100 mg PO BID 7 days #14 tabs 11/07/22 cephalexin 500 mg capsule 500 mg PO QID 10 days #40 caps 04/18/23 doxycycline hyclate 100 mg capsule 100 mg PO BID 10 days #20 caps 04/18/23 tramadol 50 mg tablet 50 mg PO Q8H PRN pain (scale score 02/15/24 4-6) #5 tabs cephalexin 500 mg capsule 500 mg PO QID 10 days #40 caps 04/10/24 doxycycline hyclate 100 mg capsule 100 mg PO BID 10 days #20 caps 04/10/24 Allergies Allergy/AdvReac Type Severity Reaction Status Date / Time No Known Allergies Allergy Verified 10/04/24 09:18 [No Known Allergies*] Review of Systems Constitutional: Constitutional: Reports no additional constitutional complaints Eyes: Eyes: Reports no additional eye complaints Respiratory: Respiratory: Reports no additional respiratory complaints [facility] Past Medical History Attestation statement: The following information was validated with the patient. Medical History Leg ulcer Left against medical advice Morbid obesity with body mass index (BMI) of 40.0 or higher Bacteremia due to group B Streptococcus IV drug user Surgical History No pertinent past surgical history Family History Family History Other No family history of coronary artery disease Social History Social History Alcohol intake: current Alcohol intake frequency: does not drink Patient Tobacco Use Status: Current everyday Tobacco user Cigarette Packs Per Day: 1 Substance Use Type: Heroin Advance Directives: No Advance Directives Information Provided: No service: No Current occupational status: employed Physical Exam Vital Signs: Vital Signs: Last Vital Signs Temp 97.9 F 10/04/24 12:33 Pulse 74 10/04/24 12:33 Resp 18 10/04/24 12:33 BP 150/87 H 10/04/24 12:33 Pulse Ox 99 10/04/24 12:33 O2 Del Method Room Air 10/04/24 12:33 BMI result Body Mass Index 46.7 he looks well not toxic-appearing he is normotensive Const: General: cooperative, comfortable and no acute distress Nutritional Appearance: average body habitus Orientation/consciousness: patient oriented x3 Limitations: no limitations HEENT: Head: Yes normal to inspection Ears: hearing grossly normal bilaterally General nose exam: Normal external nose present Neck: Neck: Yes normal visual inspection and Yes full ROM Chest: Chest palpation & inspection: normal inspection of the chest Resp: Effort & Inspection: normal respiratory effort Auscultation: clear to auscultation bilaterally Cardio: Jugular venous distension: no JVD Rate: regular rate Rhythm: regular rhythm GI: Inspection: Yes normal to inspection Palpation (GI): Soft to palpation, not firm and nontender Rectal Exam - Male: Yes visual inspection normal, Yes normal sphincter tone and Yes other ( stool is brown) Skin: General skin exam: no rashes or lesions noted Lesions: no lesions Rashes: no rashes Neuro: General: patient oriented x3 Course Reevaluation(s) Reevaluation #1: his hemoglobin is stable actually better than before, I reviewed the case with the leather flesher Dr. Elkins he will see the patient in the office he will arrange outpatient colonoscopy, patient is very comfortable with the plan of care, he will return to the emergency room if worse Time: 12:49 Medical Decision Making Medical Decision Making MDM Narrative: patient is here complaining of rectal bleeding we will obtain CBC Differential Diagnosis Differential Diagnoses: The differential diagnosis associated with the presentation includes GI bleeding/ internal hemorrhoid/ diverticular Admission/Observation Consideration of admission/observation: Escalation of care including admission/observation considered Consult Healthcare Provider Management of the patient was discussed with: Distribution A Class Lineman (DR Elkins) Lab Data MDM Lab Attestation statement: I reviewed the patient's lab results. 10/04/24 09:45 10/04/24 09:45 Labs: Lab Results 10/04/24 10/04/24 Range/Units 09:45 12:01 WBC 3.8 L (4.8-10.8) X10*3/uL RBC 3.83 L (4.60-5.80) X10*6/uL Hgb 10.4 L (14.0-18.0) g/dl Hct 31.6 L (42.0-52.0) % MCV 82.5 (80.0-98.0) fL MCH 27.2 (27.0-33.0) pg MCHC 32.9 (31.0-36.0) g/dl RDW 16.7 H (11.0-16.0) % Plt Count 82 L (160-400) X10*3/uL MPV 10.2 (9.4-12.4) fL Immature Gran % (Auto) 0.3 (0.0-0.4) % Neut % (Auto) 63.3 (45-73) % Lymph % (Auto) 23.0 (20-40) % Laurens % (Auto) 11.0 (2-11) % Eos % (Auto) 2.1 (0-4) % Baso % (Auto) 0.3 (0-2) % Lymph # (Auto) 0.9 L (1.2-4.9) X10*3/uL Laurens # (Auto) 0.4 (0.1-1.2) X10*3/uL Eos # (Auto) 0.1 (0.0-0.4) X10*3/uL Baso # (Auto) 0.0 (0.0-0.2) X10*3/uL Abs Immat Gran (auto) 0.01 (0.00-0.03) X10*3/uL Absolute Neuts (auto) 2.4 (2.0-8.3) x10*3/uL Absolute Nucleated RBC 0.000 (0.0-0.012) X10*3/uL Nucleated RBC % (auto) 0.0 (0.0-0.2) /100WBC PT 13.2 H (10.9-12.4) SEC INR 1.2 H (0.9-1.1) APTT 30.8 (26.0-36.8) SEC Sodium 137 (135-145) mmol/L Potassium 4.0 (3.3-5.1) mmol/L Chloride 106 (96-108) mmol/L Carbon Dioxide 24 (22-29) mmol/L Anion Gap 11 L (12-20) BUN 10 (9-16) mg/dL Creatinine 0.80 (0.5-1.4) mg/dL Estim Creat Clear Calc 169.6 Estimated GFR > 60 Random Glucose 146 H (60-115) mg/dL Calcium 8.2 L (8.4-10.2) mg/dL Total Bilirubin 0.5 (0.0-1.0) mg/dL AST 100 H (5-37) U/L ALT 96 H (0-40) U/L Total Protein 7.0 (6.5-8.0) g/dL Albumin 3.0 L (3.5-5.0) g/dL Stool Occult Blood POSITIVE (NEGATIVE) Independent Historian Clinical information obtained from an independent historian. History obtained from or confirmed by: Other (significative other) External Record Review External record reviewed: Inpatient record Chronic Conditions IVDA/alcoholism Discharge Plan Discharge Clinical Impression: Rectal bleeding Patient Disposition: Home, Self-Care Instructions: Rectal Bleeding (ED) Additional Instructions: call Dr. Elkins leather flesher and make an appointment for follow-up you will need likely an outpatient colonoscopy, return to the emergency room if you worse Prescriptions: No Action methadone 10 mg/mL Concentrate 135 mg PO DAILY cephalexin 500 mg capsule 500 mg PO Q6H 7 Days Qty: 28 0RF doxycycline hyclate 100 mg tablet 100 mg PO BID 7 Days Qty: 14 0RF doxycycline hyclate 100 mg capsule 100 mg PO BID 10 Days Qty: 20 0RF cephalexin 500 mg capsule 500 mg PO QID 10 Days Qty: 40 0RF doxycycline hyclate 100 mg capsule 100 mg PO BID 10 Days Qty: 20 0RF cephalexin 500 mg capsule 500 mg PO QID 10 Days Qty: 40 0RF tramadol 50 mg tablet 50 mg PO Q8H PRN (Reason: pain (scale score 4-6)) Qty: 5 0RF Referrals: Elvia Elkins MD [Physician] - 2 days Print Language: Serbian
[2024-10-04 12:11] LABS: OBS Int Ctl Valid YES; OBS1 POSITIVE (NEGATIVE)
[2024-10-04 12:33] VITALS: BP 150/87; PULSE 74; RESP 18; TEMP 36.6; O2SAT 99
[2024-10-04 12:49] LABS: Alkaline Phosphatase 68 U/L (39-117)
[2024-10-04 12:54] VITALS: BP 156/87; PULSE 68; RESP 18; TEMP 36.6; O2SAT 96
== END 2024-10-04 12:54 | disposition home or self-care (01) ==
PROVIDERS: Emergency Provider Emergency Medicine; PCP Family Medicine
DX: K62.5 Hemorrhage of anus and rectum (principal); F17.210 Nicotine dependence, cigarettes, uncomplicated
CPT/HCPCS: 36415; 80053; 82272; 85025; 85610; 85730; 99283; 99284

== ENCOUNTER 2024-10-26 10:07 | Emergency (ER) | payer MEDICAID, SELFPAY ==
--- NOTE | ~2024-10-26 | US_ITS ---
EXAMINATION: US LOWER EXTREMITY VEINS LIMITED FOLLOW UP LEFT HISTORY: pain, swelling, redness, concern for DVT COMPARISON: Comparison is made with the prior examination dated 05/25/2022. TECHNIQUE: Duplex and color Doppler sonographic examination of the deep venous system of the left lower extremity was performed. FINDINGS: The common femoral, superficial femoral, and popliteal veins are patent demonstrating normal compressibility, spontaneous flow, and augmentation. There is a normal color and spectral Doppler waveform appearance of the visualized deep venous system above the knee. The posterior tibial and peroneal veins are patent. Mildly prominent lymph nodes are noted in the left inguinal region. US/US venous duplex LE LT IMPRESSION: No evidence of acute DVT in the left lower extremity. Electronically signed by: David Flynn MD 10/26/2024 12:53 PM EDT
--- NOTE | ~2024-10-26 | XR_ITS ---
EXAMINATION: XR TIBIA FIBULA 2 VIEWS LEFT HISTORY: concern for osteo COMPARISON: There are no prior studies available for comparison. FINDINGS: AP and lateral views of the left tibia and fibula are submitted. Osseous mineralization is normal. No lytic lesion is identified. There is no fracture or dislocation. The visualized knee and ankle joint spaces are preserved. There is diffuse soft tissue swelling. XR/XR tibia fibula LT 2V IMPRESSION: Diffuse soft tissue swelling. No plain film evidence of osteomyelitis. If this remains clinical concern, three-phase bone scan or MRI could be performed. Electronically signed by: David Flynn MD 10/26/2024 12:58 PM EDT
[2024-10-26 10:22] VITALS: BP 134/82; PULSE 76; RESP 18; TEMP 36.9; O2SAT 97; BMI 41.5
--- NOTE | 2024-10-26 10:36 | ED_ITS ---
HPI - General Adult General Chief complaint: Extremity Problem Stated complaint: L Foot Red Swollen Time Seen by Provider: 10/26/24 10:35 Source: patient Mode of arrival: ambulatory Limitations: no limitations History of Present Illness ED Provider: Zara Boyer PA-C HPI narrative: Patient is a 44 year old assigned male at with a history of IVDU presenting to the emergency department today with left lower leg warmth + swelling. Patient states that his left lower leg has had some warmth, swelling, and redness over the last few days. Patient states that he has his right leg wrapped because it often swells but he isn't worried about that leg. Patient denies any dizziness, lightheadedness, abdominal pain, nausea, vomiting, fever, chills, blurry vision, double vision, loss of vision, chest pain, difficulty breathing, shortness of breath, back pain, night sweats, pain with urination, increased urinary frequency, increased urinary urgency, blood in his urine or stool, syncope or a near syncopal episode, recent trauma or falls, bowel incontinence, bladder incontinence, or any other complaints at this time. Onset (ago): day(s) Location: left and lower extremity Relieving factors: none Exacerbating factors: none Associated symptoms: denies other symptoms Treatments prior to arrival: none Related Data Home Medications ?Medication ?Instructions ?Recorded ?Confirmed methadone 10 mg/mL oral concentrate 135 mg PO DAILY 05/27/22 01/28/24 Previous Rx's ?Medication ?Instructions ?Recorded cephalexin 500 mg capsule 500 mg PO Q6H 7 days #28 caps 11/07/22 doxycycline hyclate 100 mg tablet 100 mg PO BID 7 days #14 tabs 11/07/22 cephalexin 500 mg capsule 500 mg PO QID 10 days #40 caps 04/18/23 doxycycline hyclate 100 mg capsule 100 mg PO BID 10 days #20 caps 04/18/23 tramadol 50 mg tablet 50 mg PO Q8H PRN pain (scale score 02/15/24 4-6) #5 tabs cephalexin 500 mg capsule 500 mg PO QID 10 days #40 caps 04/10/24 doxycycline hyclate 100 mg capsule 100 mg PO BID 10 days #20 caps 04/10/24 cephalexin 500 mg capsule 500 mg PO Q6H 7 days #28 caps 10/26/24 doxycycline hyclate 100 mg tablet 100 mg PO BID 7 days #14 tabs 10/26/24 Allergies Allergy/AdvReac Type Severity Reaction Status Date / Time No Known Allergies Allergy Verified 10/26/24 10:24 [No Known Allergies*] Review of Systems 2 Constitutional: Constitutional: Reports no additional constitutional complaints, Denies chills, Denies fever(s) and Denies night sweats Eyes: Eyes: Reports no additional eye complaints, Denies blurry vision, Denies change in vision, Denies diplopia, Denies eye discharge, Denies loss of vision and Denies eye pain ENT: Denies dizziness Cardiovascular: Cardiovascular: Reports no additional cardiovascular complaints, Denies chest pain, Denies lightheadedness, Denies Loss of Consciousness and Denies dyspnea Respiratory: Respiratory: Reports no additional respiratory complaints and Denies dyspnea Gastrointestinal: Gastrointestinal: Reports no additional gastrointestinal complaints, Denies abdominal pain, Denies melena, Denies hematochezia, Denies change in bowel habits and Denies change in stool character Genitourinary: Genitourinary: Reports no additional male genitourinary complaints, Denies hematuria, Denies oliguria, Denies difficulty urinating, Denies dysuria, Denies urinary frequency, Denies urinary hesitancy, Denies urinary incontinence and Denies urinary urgency Musculoskeletal: Musculoskeletal: Reports no additional musculoskeletal complaints, Denies numbness and Denies tingling Comments: left lower leg redness, warmth, and swelling Neurologic: Denies dizziness, Denies loss of vision, Denies numbness and Denies tingling Psychiatric: Psychiatric: Reports no additional psychiatric complaints Endocrine: Endocrine: Reports no additional endocrine complaints Hematologic/Lymphatic: Hematologic/Lymphatic: Reports no additional hematologic/lymphatic complaints Allergic/Immunologic: Allergic/Immunologic: Reports no additional allergic/immunologic complaints [facility] Past Medical History Attestation statement: The following information was validated with the patient. Source: old records reviewed and nursing notes reviewed Medical History Leg ulcer Left against medical advice Morbid obesity with body mass index (BMI) of 40.0 or higher Bacteremia due to group B Streptococcus IV drug user Surgical History No pertinent past surgical history Family History Family History Other No family history of coronary artery disease Social History Social History Alcohol intake: current Alcohol intake frequency: a few times a week Patient Tobacco Use Status: Current everyday Tobacco user Cigarette Packs Per Day: 1 Substance Use Type: Heroin Advance Directives: No Advance Directives Information Provided: Yes service: No Current occupational status: employed Physical Exam ED Vital Signs: Vital Signs - 24 hr 10/26/24 10:22 Temperature 98.4 F Pulse Rate 76 Respiratory Rate 18 Blood Pressure 134/82 Pulse Oximetry 97 Oxygen Delivery Method Room Air BMI result Body Mass Index 41.5 Const General: cooperative, no acute distress, alert and awake Nutritional Appearance: well nourished Orientation/consciousness: patient oriented x3 HENMT Head: Yes normal to inspection and Yes atraumatic Ears: hearing grossly normal bilaterally and external ears normal General nose exam: Normal external nose present, no nasal discharge noted and no epistaxis Face and sinus: Yes normal facial exam, No abrasion and No laceration Mouth: Normal oral and palatal mucosa present, no drooling and no muffled voice Eyes General: appearance normal, both eyes and all related structures Periorbital: periorbital findings normal Eyelids: Yes eyelids normal Conjunctivae: conjunctivae normal Pupils: Equal, round and reactive pupils present EOM: EOMs intact bilaterally Neck Neck: Yes normal visual inspection, Yes full ROM and Yes no lymphadenopathy Resp Effort & Inspection: normal respiratory effort and able to speak in complete sentences Neuro General: patient oriented x3, moves all extremities and CN's II-XI intact bilaterally Cranial nerves: Yes Equal, round and reactive pupils present Cognition (Neuro): normal cognition Extrem Other: General: Yes full ROM and Yes capillary refill normal Psych Appearance: grossly normal Mental Status: mental status grossly normal Affect: normal affect Attitude: cooperative Thought process: Normal thought process present Thought content: Normal thought content present Insight: Good insight present (Psych) Medical Decision Making Medical Decision Making MDM Narrative: Patient is a 44 year old assigned male at with a history of IVDU presenting to the emergency department today with left lower leg warmth + swelling. Patient's physical exam was as noted in the physical exam portion of this note. Patient's left lower leg had clear evidence of venous stasis dermatitis, a chronic wound, and superior erythema / warmth. Patient's left tib fib x-ray showed no evidence of osteomyelitis but did show evidence of soft tissue swelling. Patient's LLE US showed no acute process. I explained my physical exam findings as well as all test results to the patient. I answered all questions asked by the patient. Given the patient's clinical presentation and history of IVDU - will treat as cellulitis. I stressed the importance of the patient taking his medication as directed (either prescribed or as the over the counter packaging recommends). I stressed the importance of the patient following up with his primary care provider and a vascular specialist. I stressed the importance of the patient returning to the emergency department immediately if his symptoms were to worsen or if he were to develop any dizziness, shortness of breath, difficulty breathing, chest pain, blurry vision, loss of vision, nausea, vomiting, abdominal pain, fever, chills, back pain, or any other complaints. Patient verbalized agreement and understanding with this treatment plan and discharge. Differential Diagnosis Differential Diagnoses: The differential diagnosis associated with the presentation includes Cellulitis DVT Osteomyelitis Venous stasis dermatitis Admission/Observation Consideration of admission/observation: Escalation of care including admission/observation considered Patient would have been admitted to the hospital had his work up had any findings where hospital admission was appropriate and his clinical presentation warranted hospital admission. Independent Interpretation I performed an independent interpretation of an: Plain X-Ray and Ultrasound Interpretation: My interpretation is in agreement with the radiologist's impression of these imaging studies. L EXAMINATION: US LOWER EXTREMITY VEINS LIMITED FOLLOW UP LEFT HISTORY: pain, swelling, redness, concern for DVT COMPARISON: Comparison is made with the prior examination dated 05/25/2022. TECHNIQUE: Duplex and color Doppler sonographic examination of the deep venous system of the left lower extremity was performed. FINDINGS: The common femoral, superficial femoral, and popliteal veins are patent demonstrating normal compressibility, spontaneous flow, and augmentation. There is a normal color and spectral Doppler waveform appearance of the visualized deep venous system above the knee. The posterior tibial and peroneal veins are patent. Mildly prominent lymph nodes are noted in the left inguinal region. US/US venous duplex LE LT IMPRESSION: No evidence of acute DVT in the left lower extremity. Electronically signed by: David Flynn MD 10/26/2024 12:53 PM EDT Dictated By: David Flynn MD Signed By: Electronically signed by David Flynn MD 10/26/24 1253 EXAMINATION: XR TIBIA FIBULA 2 VIEWS LEFT HISTORY: concern for osteo COMPARISON: There are no prior studies available for comparison. FINDINGS: AP and lateral views of the left tibia and fibula are submitted. Osseous mineralization is normal. No lytic lesion is identified. There is no fracture or dislocation. The visualized knee and ankle joint spaces are preserved. There is diffuse soft tissue swelling. XR/XR tibia fibula LT 2V IMPRESSION: Diffuse soft tissue swelling. No plain film evidence of osteomyelitis. If this remains clinical concern, three-phase bone scan or MRI could be performed. Electronically signed by: David Flynn MD 10/26/2024 12:58 PM EDT Dictated By: David Flynn MD Signed By: Electronically signed by David Flynn MD 10/26/24 1258 Radiology Impression Discussion of test interpretation with radiology: I have reviewed the radiologist's reading. Prescription Management I considered prescription management with: Antibiotic (Given the patient's history of IVDU and current clinical presentation - will treat with ABX) Discharge Plan Discharge Clinical Impression: Venous stasis, Cellulitis Patient Disposition: Home, Self-Care Instructions: Cellulitis (ED), Venous Insufficiency (DC) Additional Instructions: Follow up with your primary care provider and a vascular specialist. Return to the emergency department immediately if your symptoms worsen or if you develop any numbness, tingling, dizziness, shortness of breath, difficulty breathing, chest pain, blurry vision, loss of vision, nausea, vomiting, abdominal pain, fever, chills, back pain, or any other complaints. Please see the information below about our Patient Portal. If you are not yet enrolled in the [facility] Patient Portal, you will receive an enrollment email invitation following your visit to any [facility] care setting. You may also self-enroll in the Patient Portal by visiting our website: [email or web address] The following information is required to access the Patient Portal: - Your [facility] Medical Record Number - Your personal home email address (must match what is in your electronic medical record, Registration staff can assist with this) - Name - Date of Capabilities of the Patient Portal: - Message some providers - View upcoming appointments - Access your health summary, medical history, and visit history - View current conditions and allergies - View procedure and lab results - View your medications, including guidelines, side effects, and precautions - Complete pre-appointment questionnaires requested by your provider - Ready summary reports of your office visits and procedures To access the Patient Portal Mobile Sruthi, follow these directions: - Search Exploredge in the Sruthi Store or Google [employer] Store - Download the Sruthi - Search for [facility] - Enter your login/password Prescriptions: New cephalexin 500 mg capsule 500 mg PO Q6H 7 Days Qty: 28 0RF doxycycline hyclate 100 mg tablet 100 mg PO BID 7 Days Qty: 14 0RF No Action methadone 10 mg/mL Concentrate 135 mg PO DAILY cephalexin 500 mg capsule 500 mg PO Q6H 7 Days Qty: 28 0RF doxycycline hyclate 100 mg tablet 100 mg PO BID 7 Days Qty: 14 0RF doxycycline hyclate 100 mg capsule 100 mg PO BID 10 Days Qty: 20 0RF cephalexin 500 mg capsule 500 mg PO QID 10 Days Qty: 40 0RF doxycycline hyclate 100 mg capsule 100 mg PO BID 10 Days Qty: 20 0RF cephalexin 500 mg capsule 500 mg PO QID 10 Days Qty: 40 0RF tramadol 50 mg tablet 50 mg PO Q8H PRN (Reason: pain (scale score 4-6)) Qty: 5 0RF Referrals: [facility] Vascular Services [Provider Group] (Call to establish and follow up with a vascular specialist. ) Laury Perez MD [Primary Care Provider] - Print Language: Japanese
--- OUTSIDE RECORDS SUMMARY | 2024-10-26 11:59 | XMS_ITS | Encounter Summary ---
Author Organization [employer] Address [address] [place] [address] Care Team Providers Care Investor Relations Analyst Name Role Phone Laury Perez MD Primary Care Provider Encounter Details Date Type Department Care Team (Late st Contact Info) Description 08/23/2024 Telephone [facility] [address] [place] [address] Cassidy Tran, PharmD [address] [place] [address] Social History Tobacco Use Types Packs/Day Years [...] documented as of this encounter Care Teams Investor Relations Analyst Relationship Specialty Start Date End Date Laury Perez MD [address] [place] [phone] PCP - General Family Medicine 10/31/21 documented as of this encounter
[2024-10-26 13:42] VITALS: BP 134/82; PULSE 76; RESP 18; TEMP 36.9; O2SAT 97
== END 2024-10-26 13:42 | disposition home or self-care (01) ==
PROVIDERS: Emergency Provider Emergency Medicine; PCP Family Medicine
DX: L03.116 Cellulitis of left lower limb (principal); I87.8 Other specified disorders of veins; M79.89 Other specified soft tissue disorders
CPT/HCPCS: 73590; 93971; 99282; 99284

== ENCOUNTER → 2024-10-26 10:40 | Outpatient (BNV) | payer MEDICAID, SELFPAY | PROVIDERS: PCP Family Medicine; Visit Provider Radiology Diagnostic Radiology | DX: I87.8 Other specified disorders of veins (principal); R22.42 Localized swelling, mass and lump, left lower limb | CPT/HCPCS: 73590; 93971 ==

== ENCOUNTER 2024-12-15 11:57 | Emergency (ER) | payer MEDICAID, SELFPAY ==
--- NOTE | ~2024-12-15 | XR_ITS ---
EXAMINATION: XR CHEST CLINICAL INFORMATION: Cough and fever COMPARISON: 04/10/2024, 05/26/2022 TECHNIQUE: 2 views of the chest were obtained. FINDINGS: There is mild cardiac enlargement. Mediastinal and hilar contours appear normal. The lungs are clear bilaterally. There is no pneumothorax or pleural effusion. There is no focal osseous or soft tissue abnormality. XR/XR chest 2V IMPRESSION: Mild cardiac enlargement. No active pulmonary disease. Electronically signed by: Maxime Herrera MD 12/15/2024 12:53 PM EDT
[2024-12-15 12:06] VITALS: BP 103/70; PULSE 69; RESP 18; TEMP 36.6; O2SAT 96; BMI 47.6
--- NOTE | 2024-12-15 12:06 | ED.URI ---
HPI - URI/Sore Throat General Chief Complaint: General Medical Stated Complaint: chills headache tired Time Seen by Provider: 12/15/24 12:25 Source: patient Mode of arrival: ambulatory Limitations: no limitations History of Present Illness ED Provider: DR. Finnegan HPI Narrative: 44-year-old male came in for evaluation of fever, chills, body ache, sore throat, nonproductive cough x2 days. No sick contacts, no recent travel, last IV heroin use was a week ago, no redness or pain at the injection site. No CP, no SOB, no abdominal pain, no nausea, no vomiting, no diarrhea, no skin redness, chronic lower extremities wound are healing okay. Related Data Home Medications ?Medication ?Instructions ?Recorded ?Confirmed methadone 10 mg/mL oral concentrate 135 mg PO DAILY 05/27/22 01/28/24 Previous Rx's ?Medication ?Instructions ?Recorded cephalexin 500 mg capsule 500 mg PO Q6H 7 days #28 caps 11/07/22 doxycycline hyclate 100 mg tablet 100 mg PO BID 7 days #14 tabs 11/07/22 cephalexin 500 mg capsule 500 mg PO QID 10 days #40 caps 04/18/23 doxycycline hyclate 100 mg capsule 100 mg PO BID 10 days #20 caps 04/18/23 tramadol 50 mg tablet 50 mg PO Q8H PRN pain (scale score 02/15/24 4-6) #5 tabs cephalexin 500 mg capsule 500 mg PO QID 10 days #40 caps 04/10/24 doxycycline hyclate 100 mg capsule 100 mg PO BID 10 days #20 caps 04/10/24 cephalexin 500 mg capsule 500 mg PO Q6H 7 days #28 caps 10/26/24 doxycycline hyclate 100 mg tablet 100 mg PO BID 7 days #14 tabs 10/26/24 Allergies Allergy/AdvReac Type Severity Reaction Status Date / Time No Known Allergies (No Known Allergy Verified 12/15/24 12:07 Allergies*) Review of Systems Review of Systems: All other systems are reviewed and are negative Constitutional: Reports as per HPI and Reports no additional constitutional complaints Eyes: Reports as per HPI and Reports no additional eye complaints Reports system reviewed and no additional complaints, except as documented Cardiovascular: Reports as per HPI and Reports no additional cardiovascular complaints Respiratory: Reports as per HPI and Reports no additional respiratory complaints Gastrointestinal: Reports as per HPI and Reports no additional gastrointestinal complaints Genitourinary: Reports no additional female genitourinary complaints Musculoskeletal: Reports no additional musculoskeletal complaints Skin/Breast: Reports system reviewed and no additional complaints, except as docu Psychiatric: Reports no additional psychiatric complaints Endocrine: Reports no additional endocrine complaints Hematologic/Lymphatic: Reports no additional hematologic/lymphatic complaints Allergic/Immunologic: Reports no additional allergic/immunologic complaints Reports system reviewed and no additional complaints, except as documented and Reports Abnormal speech present [facility] Past Medical History Medical History Leg ulcer Left against medical advice Morbid obesity with body mass index (BMI) of 40.0 or higher Bacteremia due to group B Streptococcus IV drug user Surgical History No pertinent past surgical history Family History Family History Other No family history of coronary artery disease Social History Social History Alcohol intake: current Alcohol intake frequency: a few times a week Patient Tobacco Use Status: Current everyday Tobacco user Cigarette Packs Per Day: 1 Substance Use Type: Heroin Advance Directives: No Advance Directives Information Provided: Yes Do you have a plan to hurt others: No Plan service: No Current occupational status: employed Physical Exam Vital Signs: Vital Signs: Last Vital Signs Temp 97.9 F 12/15/24 12:06 Pulse 69 12/15/24 12:06 Resp 18 12/15/24 12:06 BP 103/70 12/15/24 12:06 Pulse Ox 96 12/15/24 12:06 O2 Del Method Room Air 12/15/24 12:06 BMI result Body Mass Index 47.6 Vital signs have been reviewed and appear to be correct. Blood pressure elevated. Heart rate normal. Respiratory rate normal. Temperature normal. Oxygen saturation normal. Appearance: Alert. Oriented X3. No acute distress. Head: Normal external exam. Normocephalic. Atraumatic. No Robertson signs noted. No raccoon eyes noted Eyes: PERRLA. EOMI. Conjunctiva and sclera normal. Eyelids normal. ENT: TM's Normal. Pharynx normal. Uvula midline. Moist mucous membranes. No trismus noted. No drooling noted. No muffled voice noted. Neck: Normal inspection. Neck supple. FROM. No adenopathy. Thyroid Normal. No meningeal signs. No neck mass noted. CVS: Normal heart rate and rhythm. Heart sound normal. No murmurs noted. Pulses normal throughout. Respiratory: No respiratory distress. Painless inspiration. Breath sounds normal. No wheezes/rales/rhonchi noted. Chest nontender. No accessory muscle usage noted or decreased air movement noted. Abdomen: Soft and nontender. Bowel sounds normal in all 4 quadrants. No distention noted. No organomegaly noted. No visible injury noted. Back: No CVA tenderness. Full range of motion noted. Skin: Skin warm and dry. Normal skin color. Normal skin turgor. No rashes/lesions/lacerations noted. Extremities: No lower extremity edema. Extremities exhibit normal range of motion. Extremities nontender. Neuro: Oriented X 3. Cranial nerve exam: II-XII are grossly intact No motor deficit. No sensory deficit. Reflexes normal. Course Course Course Narrative: This is an RME: Additional HPI, ROS, PE not included below will be deferred to primary provider. RME assessment and note performed by: Angelina Faria PA-C This is a 23-rumt-zad-male, with a hx of IVDA, who presents to the ER with concerns of tired, subjective fevers, headache, and chills x 4 days. Reporting cough and sore throat. No CP or SOB. No sick contacts.Here with chronic wounds to LEs reporting healing well. Plan: Labs, viral swabs, strep swab. Reevaluation(s) Reevaluation #1: 44-year-old male came in with viral syndrome symptoms, chest x-ray is negative for pneumonia, is normal lung exam, patient with stable vital signs while in the ED, lab revealing chronic anemia, chronic transaminase elevations. Patient will be discharged home, instructed to refrain from using IV drugs, return if feeling worse. Time: 13:32 Medical Decision Making Differential Diagnosis Differential Diagnoses: The differential diagnosis associated with the presentation includes (Viral upper respiratory infection, strep throat, pneumonia, pneumothorax, pleural effusion, bronchitis, electrolyte derangement, severe anemia.) Admission/Observation Consideration of admission/observation: Escalation of care including admission/observation considered Lab Data MDM Lab Attestation statement: I reviewed the patient's lab results. 12/15/24 12:21 12/15/24 12:21 Labs: Lab Results 12/15/24 Range/Units 12:21 WBC 3.2 L (4.8-10.8) X10*3/uL RBC 3.68 L (4.60-5.80) X10*6/uL Hgb 10.2 L (14.0-18.0) g/dl Hct 30.7 L (42.0-52.0) % MCV 83.4 (80.0-98.0) fL MCH 27.7 (27.0-33.0) pg MCHC 33.2 (31.0-36.0) g/dl RDW 16.9 H (11.0-16.0) % Plt Count 71 L (160-400) X10*3/uL MPV 10.2 (9.4-12.4) fL Immature Gran % (Auto) 0.3 (0.0-0.4) % Neut % (Auto) 59.4 (45-73) % Lymph % (Auto) 23.9 (20-40) % Anson % (Auto) 14.5 H (2-11) % Eos % (Auto) 1.6 (0-4) % Baso % (Auto) 0.3 (0-2) % Lymph # (Auto) 0.8 L (1.2-4.9) X10*3/uL Anson # (Auto) 0.5 (0.1-1.2) X10*3/uL Eos # (Auto) 0.1 (0.0-0.4) X10*3/uL Baso # (Auto) 0.0 (0.0-0.2) X10*3/uL Abs Immat Gran (auto) 0.01 (0.00-0.03) X10*3/uL Absolute Neuts (auto) 1.9 L (2.0-8.3) x10*3/uL Absolute Nucleated RBC 0.000 (0.0-0.012) X10*3/uL Nucleated RBC % (auto) 0.0 (0.0-0.2) /100WBC Sodium 138 (135-145) mmol/L Potassium 3.8 (3.3-5.1) mmol/L Chloride 107 (96-108) mmol/L Carbon Dioxide 25 (22-29) mmol/L Anion Gap 10 L (12-20) BUN 14 (9-16) mg/dL Creatinine 0.85 (0.5-1.4) mg/dL Estim Creat Clear Calc 161.5 Estimated GFR > 60 Random Glucose 131 H (60-115) mg/dL Calcium 8.0 L (8.4-10.2) mg/dL Total Bilirubin 0.5 (0.0-1.0) mg/dL Direct Bilirubin 0.3 (0.0-0.5) mg/dL AST 95 H (5-37) U/L ALT 79 H (0-40) U/L Alkaline Phosphatase 72 (39-117) U/L Total Protein 7.2 (6.5-8.0) g/dL Albumin 3.2 L (3.5-5.0) g/dL Influenza Type A (PCR) NEGATIVE (Negative) Influenza Type B (PCR) NEGATIVE (Negative) RSV RNA Qual (PCR) NEGATIVE (Negative) SARS-CoV-2 RNA (RT-PCR) NEGATIVE (Negative) S. pyogenes GrpA SHEILA Negative (Negative) Independent Interpretation I performed an independent interpretation of an: Plain X-Ray (Chest: Mild cardiac enlargement, no active pulmonary disease.) Radiology Impression Discussion of test interpretation with radiology: I have reviewed the radiologist's reading. Discharge Plan Discharge Clinical Impression: Acute viral syndrome Patient Disposition: Home, Self-Care Instructions: Viral Syndrome (ED) Prescriptions: No Action methadone 10 mg/mL Concentrate 135 mg PO DAILY cephalexin 500 mg capsule 500 mg PO Q6H 7 Days Qty: 28 0RF doxycycline hyclate 100 mg tablet 100 mg PO BID 7 Days Qty: 14 0RF doxycycline hyclate 100 mg capsule 100 mg PO BID 10 Days Qty: 20 0RF cephalexin 500 mg capsule 500 mg PO QID 10 Days Qty: 40 0RF doxycycline hyclate 100 mg capsule 100 mg PO BID 10 Days Qty: 20 0RF cephalexin 500 mg capsule 500 mg PO QID 10 Days Qty: 40 0RF tramadol 50 mg tablet 50 mg PO Q8H PRN (Reason: pain (scale score 4-6)) Qty: 5 0RF cephalexin 500 mg capsule 500 mg PO Q6H 7 Days Qty: 28 0RF doxycycline hyclate 100 mg tablet 100 mg PO BID 7 Days Qty: 14 0RF Referrals: Laury Perez MD [Primary Care Provider, Medical] Print Language: Turkish
[2024-12-15 12:26] LABS: MANUAL DIFF FLAG NO
[2024-12-15 12:27] LABS: Hematocrit 30.7 % (42.0-52.0); Hemoglobin 10.2 g/dl (14.0-18.0); Imm Gran Abs Auto 0.01 X10*3/uL (0.00-0.03); Imm Gran Pct Auto 0.3 % (0.0-0.4); Lymphocytes Absolute Auto 0.8 X10*3/uL (1.2-4.9); Mean Corpuscular HGB Conc 33.2 g/dl (31.0-36.0); Mean Corpuscular Hemoglobin 27.7 pg (27.0-33.0); Mean Corpuscular Volume 83.4 fL (80.0-98.0); NRBC Abs Auto 0.000 X10*3/uL (0.0-0.012); NRBC Pct Auto 0.0 /100WBC (0.0-0.2); Platelet Count 71 X10*3/uL (160-400); Red Blood Count 3.68 X10*6/uL (4.60-5.80); White Blood Count 3.2 X10*3/uL (4.8-10.8)
[2024-12-15 12:36] LABS: IDNOW Serial# 55D5AD1C; Strep A Nucleic Acid Negative (Negative)
[2024-12-15 12:45] LABS: Alanine Aminotransferase 79 U/L (0-40); Albumin Level 3.2 g/dL (3.5-5.0); Alkaline Phosphatase 72 U/L (39-117); Anion Gap 10 (12-20); Aspartate Amino Transferase 95 U/L (5-37); Blood Urea Nitrogen 14 mg/dL (9-16); Calcium 8.0 mg/dL (8.4-10.2); Carbon Dioxide 25 mmol/L (22-29); Chloride 107 mmol/L (96-108); Creatinine Clr Calc Pharmacy 161.5; Estimated Glomerular Filt Rate > 60; Potassium 3.8 mmol/L (3.3-5.1); Sodium 138 mmol/L (135-145); Total Protein 7.2 g/dL (6.5-8.0)
--- OUTSIDE RECORDS SUMMARY | 2024-12-15 13:04 | XMS_ITS | Encounter Summary ---
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 Name Role Phone Laury Perez MD Primary Care Provider [phone] Agusto Demetria Danya Encounter Details Date Type Department Care Team ([facility] st Contact Info) Description 08/23/2024 Telephone [facility] [address] [place] [address] Cassidy Tran PharmD [address] [place] [address] Social History Tobacco Use Types Packs/Day Years [...] documented as of this encounter Care Teams [employer] Dem[employer]ator Relationship Specialty Start Date End Date Laury Perez MD [address] [place] [id number] PCP - General Family Medicine 10/31/21 Demetria Liz 11/09/24 documented as of this encounter
[2024-12-15 13:07] LABS: Resp Syncy Virus RNA Qual PCR NEGATIVE (Negative); SARS COV2 PCR INHOUSE NEGATIVE (Negative)
== END 2024-12-15 14:30 | disposition home or self-care (01) ==
PROVIDERS: Physician Assistant Medical; Emergency Provider Emergency Medicine; PCP Family Medicine
DX: B34.9 Viral infection, unspecified (principal); D64.9 Anemia, unspecified
CPT/HCPCS: 71046; 80048; 80076; 85025; 87637; 87651; 99281; 99283

== ENCOUNTER → 2024-12-15 12:37 | Outpatient (BNV) | payer MEDICAID, SELFPAY | PROVIDERS: Emergency Provider Emergency Medicine; PCP Family Medicine; Visit Provider Radiology Diagnostic Radiology | DX: R05.9 Cough, unspecified (principal); R50.9 Fever, unspecified | CPT/HCPCS: 71046 ==

== ENCOUNTER 2024-12-17 10:54 | Emergency (ER) | payer MEDICAID, SELFPAY ==
--- NOTE | 2024-12-17 11:06 | ED.GENADULT ---
HPI - General Adult General Chief complaint: General Medical Stated complaint: med issues Time Seen by Provider: 12/17/24 11:07 Source: patient Mode of arrival: ambulatory Limitations: no limitations History of Present Illness ED Provider: MANDA RG PA-C HPI narrative: 44 year old male presents to the ED today requesting his methadone dose. He states is typically dosed with 195 mg methadone daily. He missed his dose today as he was unable to get to his clinic before they closed. He states he was last dosed yesterday morning. He denies any withdrawal symptoms. Denies any physical complaints. Denies any illicit substance use. Related Data Home Medications ?Medication ?Instructions ?Recorded ?Confirmed methadone 10 mg/mL oral concentrate 195 mg PO DAILY 05/27/22 12/17/24 Previous Rx's ?Medication ?Instructions ?Recorded cephalexin 500 mg capsule 500 mg PO Q6H 7 days #28 caps 11/07/22 doxycycline hyclate 100 mg tablet 100 mg PO BID 7 days #14 tabs 11/07/22 cephalexin 500 mg capsule 500 mg PO QID 10 days #40 caps 04/18/23 doxycycline hyclate 100 mg capsule 100 mg PO BID 10 days #20 caps 04/18/23 tramadol 50 mg tablet 50 mg PO Q8H PRN pain (scale score 02/15/24 4-6) #5 tabs cephalexin 500 mg capsule 500 mg PO QID 10 days #40 caps 04/10/24 doxycycline hyclate 100 mg capsule 100 mg PO BID 10 days #20 caps 04/10/24 cephalexin 500 mg capsule 500 mg PO Q6H 7 days #28 caps 10/26/24 doxycycline hyclate 100 mg tablet 100 mg PO BID 7 days #14 tabs 10/26/24 Allergies Allergy/AdvReac Type Severity Reaction Status Date / Time No Known Allergies (No Known Allergy Verified 12/17/24 11:08 Allergies*) Review of Systems Review of Systems: Yes all other systems are reviewed and are negative PMFSH Past Medical History Attestation statement: The following information was validated with the patient. Source: old records reviewed and nursing notes reviewed Medical History Leg ulcer Left against medical advice Morbid obesity with body mass index (BMI) of 40.0 or higher Bacteremia due to group B Streptococcus IV drug user Surgical History No pertinent past surgical history Family History Family History Other No family history of coronary artery disease Social History Social History Alcohol intake: current Alcohol intake frequency: a few times a week Patient Tobacco Use Status: Current everyday Tobacco user Cigarette Packs Per Day: 1 Substance Use Type: Heroin Advance Directives: No Advance Directives Information Provided: No service: No Current occupational status: employed Physical Exam ED Vital Signs: Vital Signs - 24 hr 12/17/24 11:07 12/17/24 12:03 12/17/24 12:12 Temperature 97.6 F 98.1 F 98.1 F Pulse Rate 84 75 75 Respiratory Rate 18 16 16 Blood Pressure 146/65 H 140/77 H 140/77 H Pulse Oximetry 98 96 96 Oxygen Delivery Method Room Air Room Air Room Air BMI result Body Mass Index 47.3 hypertensive, vitals are otherwise wnl General: Well appearing, in no acute distress. Skin: Warm, dry, intact. No rashes or lesions. Head: Normocephalic, atraumatic. EENT: Hearing is intact b/l. Conjunctiva clear. Sclera is anicteric. PERRLA. EOM intact. Moist mucous membranes.? Neck: Supple without LAD Cardiac: Chest wall symmetric. RRR Lungs: Normal respiratory effort without accessory muscle use. CTA bilaterally Back: No midline spinous or paraspinal tenderness. No step off deformity. Ext: Upper and lower extremities atraumatic, without tenderness, deformity, swelling or erythema Neuro: AOx3. Normal speech. CN 2-12 grossly intact. Ambulating with steady gait. Psych: Appropriate mood and affect. Responds appropriately to questions. Course Course Course Narrative: Naomi CM called patients clinic - dose confirmed, last administered yesterday. last dose letter faxed to pharmacy. 195 mg methadone ordered and administered. patient tolerated well. stable for discharge. advised to f/u with clinic for further dosing. Medications Administered Discontinued Medications Generic Name Dose Route Start Last Admin Trade Name Freq PRN Reason Stop Dose Admin Methadone HCl 195 mg 12/17/24 11:28 12/17/24 12:07 Methadone Hcl 20 Mg/2 Ml Oral.Conc PO 12/17/24 11:29 195 mg ONCE ONE Administration Medical Decision Making Medical Decision Making [facility] Narrative: 44 year old male presents to the ED today requesting his methadone dose. exam benign. he is hypertensive, vitals are otherwise wnl. Plan to confirm methadone dose, administer and discharge. Differential Diagnosis Differential Diagnoses: The differential diagnosis associated with the presentation includes as above. Admission/Observation not indicated. Chronic Conditions Patient?s care impacted by: Other (methadone dependence) Social Determinants Patient?s care significantly limited by Social Determinants of Health including: Other Social Determinant of Health Critical Care Time Critical Care Time Critical Care Time: No Discharge Plan Discharge Clinical Impression: Methadone dependence Patient Disposition: Home, Self-Care Instructions: Methadone (By mouth) Additional Instructions: You were seen in the emergency department for methadone dosing. We called and verified your last dose, which is methadone 195 mg, which was last given 12/16/2024. We had given you methadone 195 mg in the department today. Please follow-up with your methadone clinic tomorrow for additional dosing. If any new or worsening symptoms occur, including but not limited to chest pain or shortness a breath, please return for re-evaluation. Prescriptions: No Action methadone 10 mg/mL Concentrate 195 mg PO DAILY cephalexin 500 mg capsule 500 mg PO Q6H 7 Days Qty: 28 0RF doxycycline hyclate 100 mg tablet 100 mg PO BID 7 Days Qty: 14 0RF doxycycline hyclate 100 mg capsule 100 mg PO BID 10 Days Qty: 20 0RF cephalexin 500 mg capsule 500 mg PO QID 10 Days Qty: 40 0RF doxycycline hyclate 100 mg capsule 100 mg PO BID 10 Days Qty: 20 0RF cephalexin 500 mg capsule 500 mg PO QID 10 Days Qty: 40 0RF tramadol 50 mg tablet 50 mg PO Q8H PRN (Reason: pain (scale score 4-6)) Qty: 5 0RF cephalexin 500 mg capsule 500 mg PO Q6H 7 Days Qty: 28 0RF doxycycline hyclate 100 mg tablet 100 mg PO BID 7 Days Qty: 14 0RF Referrals: Laury Perez MD [Primary Care Provider, Medical] Interventions: ED Discharge Assessment Last Done: 12/17/24 12:12 Discharge Date/Time: 12/17/24 12:12 Print Language: Spanish
[2024-12-17 11:07] VITALS: BP 146/65; PULSE 84; RESP 18; TEMP 36.4; O2SAT 98; BMI 47.3
--- NOTE | 2024-12-17 11:55 | HE.PHANOTE ---
RE: METHADONE DOSING Last dose of methadone 195 mg was given on 12/16/24@0943 per Angelina at [facility].
[2024-12-17 12:03] VITALS: BP 140/77; PULSE 75; RESP 16; TEMP 36.7; O2SAT 96
[2024-12-17] MEDS: methADONE HCl 20 MG/2 ML ORAL.CONC 195 MG PO (12:07)
[2024-12-17 12:12] VITALS: BP 140/77; PULSE 75; RESP 16; TEMP 36.7; O2SAT 96
== END 2024-12-17 12:12 | disposition home or self-care (01) ==
PROVIDERS: Emergency Provider Emergency Medicine; PCP Family Medicine
DX: F11.20 Opioid dependence, uncomplicated (principal)
CPT/HCPCS: 99283

== ENCOUNTER 2024-12-30 08:04 | Outpatient (RCR) | payer MEDICAID, SELFPAY | END 2025-01-21 16:53 | disposition home or self-care (01) | LOC: HO.WCC 08:04 | PROVIDERS: PCP Family Medicine; Visit Provider Surgery Vascular Surgery | DX: I87.331 Chronic venous hypertension (idiopathic) with ulcer and inflammation of right lower extremity (principal); I87.332 Chronic venous hypertension (idiopathic) with ulcer and inflammation of left lower extremity; L97.212 Non-pressure chronic ulcer of right calf with fat layer exposed; L97.226 Non-pressure chronic ulcer of left calf with bone involvement without evidence of necrosis; F17.210 Nicotine dependence, cigarettes, uncomplicated; F11.10 Opioid abuse, uncomplicated | CPT/HCPCS: 97597; 97598; 99213 ==

== ENCOUNTER 2025-01-28 12:45 | Emergency (ER) | payer MEDICAID, SELFPAY ==
--- NOTE | ~2025-01-28 | XR_ITS ---
CLINICAL HISTORY: overlying wound Two views of the left tibia and fibula. COMPARISON: XR left tibia fibula dated 10/26/24 at 10:55 EDT FINDINGS: Soft tissue swelling overlying the left leg. No radiopaque foreign body. Tibia and fibula appear intact. Visualized portions of the left ankle are unremarkable. Lucency within the medial femoral condyle adjacent to the medial compartment suggestive of an osteochondral defect, similar to prior imaging. IMPRESSION: 1. Soft tissue swelling overlying the left lower leg. No evidence of acute injury to the underlying bones. No radiopaque foreign body. 2. Likely osteochondral defect within the medial femoral condyle, similar to prior imaging. MR would be confirmatory if this has not already been characterized. This document has been electronically signed by: Calixto Amezcua MD on 01/28/2025 13:36:04
--- NOTE | 2025-01-28 12:51 | ED_ITS ---
HPI - General Adult General Chief complaint: Wound/Laceration Stated complaint: hole on L leg Time Seen by Provider: 01/28/25 12:59 Source: patient Mode of arrival: ambulatory Limitations: no limitations History of Present Illness ED Provider: Zara Boyer PA-C HPI narrative: Patient is a 44 year old assigned male at with a history of IVDU and a chronic left lower leg wound presenting to the emergency department today with worsening left lower leg pain and draining from his wound. Patient states that he is currently following up with the wound center and was seen there last week but now he is having worsening pain and drainage from the area. Patient denies any other complaints at this time. Related Data Home Medications ?Medication ?Instructions ?Recorded ?Confirmed methadone 10 mg/mL oral concentrate 195 mg PO DAILY 12/17/24 Previous Rx's ?Medication ?Instructions ?Recorded tramadol 50 mg tablet 50 mg PO Q8H PRN pain (scale score 02/15/24 4-6) #5 tabs cephalexin 500 mg capsule 500 mg PO Q6H 7 days #28 cap s 01/28/25 doxycycline hyclate 100 mg tablet 100 mg PO BID 7 days #14 tabs 01/28/25 Allergies Allergy/AdvReac Type Severity Reaction Status Date / Time No Known Allergies (No Known Allergy Verified 01/28/25 12:56 Allergies*) Review of Systems 2 Constitutional: Constitutional: Reports as per HPI Eyes: Eyes: Reports as per HPI ENT: Reports as per HPI Cardiovascular: Cardiovascular: Reports as per HPI Respiratory: Respiratory: Reports as per HPI Gastrointestinal: Gastrointestinal: Reports as per HPI Genitourinary: Genitourinary: Reports as per HPI Musculoskeletal: Musculoskeletal: Reports as per HPI Integumentary/Breasts: Skin/Breast: Reports as per HPI Neurologic: Reports as per HPI Psychiatric: Psychiatric: Reports as per HPI Endocrine: Endocrine: Reports as per HPI Hematologic/Lymphatic: Hematologic/Lymphatic: Reports as per HPI Allergic/Immunologic: Allergic/Immunologic: Reports as per HPI PMF Past Medical History Attestation statement: The following information was validated with the patient. Source: old records reviewed and nursing notes reviewed Medical History Leg ulcer Left against medical advice Morbid obesity with body mass index (BMI) of 40.0 or higher Bacteremia due to group B Streptococcus IV drug user Surgical History No pertinent past surgical history Family History Family History Other No family history of coronary artery disease Social History Social History Alcohol intake: current Alcohol intake frequency: a few times a week Patient Tobacco Use Status: Current everyday Tobacco user Cigarette Packs Per Day: 1 Substance Use Type: Heroin Advance Directives: No Advance Directives Information Provided: Yes service: No Current occupational status: employed Physical Exam ED Vital Signs: Vital Signs - 24 hr 01/28/25 12:52 01/28/25 13:57 Temperature 98.2 F 98.2 F Pulse Rate 93 93 Respiratory Rate 20 20 Blood Pressure 160/77 H 160/77 H Pulse Oximetry 98 98 BMI result Body Mass Index 47.2 Const General: cooperative, no acute distress, alert and awake Nutritional Appearance: well nourished Orientation/consciousness: patient oriented x3 HENMT Head: Yes normal to inspection and Yes atraumatic Ears: hearing grossly normal bilaterally and external ears normal General nose exam: Normal external nose present, no nasal discharge noted and no epistaxis Face and sinus: Yes normal facial exam, No abrasion and No laceration Mouth: Normal oral and palatal mucosa present, no drooling and no muffled voice Eyes General: appearance normal, both eyes and all related structures Periorbital: periorbital findings normal Eyelids: Yes eyelids normal Conjunctivae: conjunctivae normal Pupils: Equal, round and reactive pupils present EOM: EOMs intact bilaterally Neck Neck: Yes normal visual inspection and Yes full ROM Resp Effort & Inspection: normal respiratory effort and able to speak in complete sentences Neuro General: patient oriented x3, moves all extremities and CN's II-XI intact bilaterally Cranial nerves: Yes Equal, round and reactive pupils present Cognition (Neuro): normal cognition Extrem Other: General: Yes full ROM and Yes capillary refill normal Psych Appearance: grossly normal Mental Status: mental status grossly normal Affect: normal affect Attitude: cooperative Thought process: Normal thought process present Thought content: Normal thought content present Insight: Good insight present (Psych) Course Course Course Narrative: This is a Rapid Medical Examination (RME) performed by Mattie Dodson PA-C in triage. Full HPI, ROS, assessment and treatment plan per primary provider in the Main ED. Hx: 44 yo M hx of IVDU here for eval of hole in left leg . reports wound x3 mo, states it was opened by wound care 2 weeks ago. reports pain/ drainage from the area. not started on ABX. Plan: labs, xr Medical Decision Making Medical Decision Making [facility] Narrative: Patient is a 44 year old assigned male at with a history of IVDU and a chronic left lower leg wound presenting to the emergency department today with worsening left lower leg pain and draining from his wound. Patient's physical exam was as noted in the physical exam portion of this note. Patient's blood work showed an ESR of 38 and CR of 2.3 but otherwise unremarkable. Patient's left tib fib x-ray showed no acute process. I explained my physical exam findings as well as all test results to the patient. I answered all questions asked by the patient. Given the increased discharge and pain, will treat as though it is acutely infected. I stressed the importance of the patient taking his medication as directed (either prescribed or as the over the counter packaging recommends). I stressed the importance of the patient following up with his primary care provider and the wound center. I stressed the importance of the patient returning to the emergency department immediately if his symptoms were to worsen or if he were to develop any dizziness, shortness of breath, difficulty breathing, chest pain, blurry vision, loss of vision, nausea, vomiting, abdominal pain, fever, chills, back pain, or any other complaints. Patient verbalized agreement and understanding with this treatment plan and discharge. Differential Diagnosis Differential Diagnoses: The differential diagnosis associated with the presentation includes Cellulitis Left lower leg wound Admission/Observation Consideration of admission/observation: Escalation of care including admission/observation considered Patient would have been admitted to the hospital had his work up had any findings where hospital admission was appropriate and his clinical presentation warranted hospital admission. Lab Data [facility] Lab Attestation statement: I reviewed the patient's lab results. My interpretation of these results are in the MDM Rationale portion of this note. 01/28/25 13:20 01/28/25 13:20 Labs: Lab Results 01/28/25 Range/Units 13:20 WBC 4.8 (4.8-10.8) X10*3/uL RBC 3.87 L (4.60-5.80) X10*6/uL Hgb 10.6 L (14.0-18.0) g/dl Hct 32.2 L (42.0-52.0) % MCV 83.2 (80.0-98.0) fL MCH 27.4 (27.0-33.0) pg MCHC 32.9 (31.0-36.0) g/dl RDW 15.6 (11.0-16.0) % Plt Count 93 L D (160-400) X10*3/uL MPV 9.9 (9.4-12.4) fL Immature Gran % (Auto) 0.4 (0.0-0.4) % Neut % (Auto) 70.0 (45-73) % Lymph % (Auto) 16.5 L (20-40) % [place] % (Auto) 11.9 H (2-11) % Eos % (Auto) 1.0 (0-4) % Baso % (Auto) 0.2 (0-2) % Lymph # (Auto) 0.8 L (1.2-4.9) X10*3/uL [place] # (Auto) 0.6 (0.1-1.2) X10*3/uL Eos # (Auto) 0.1 (0.0-0.4) X10*3/uL Baso # (Auto) 0.0 (0.0-0.2) X10*3/uL Abs Immat Gran (auto) 0.02 (0.00-0.03) X10*3/uL Absolute Neuts (auto) 3.4 (2.0-8.3) x10*3/uL Absolute Nucleated RBC 0.000 (0.0-0.012) X10*3/uL Nucleated RBC % (auto) 0.0 (0.0-0.2) /100WBC ESR 38 H (0-15) MM/HR Sodium 137 (135-145) mmol/L Potassium 4.1 (3.3-5.1) mmol/L Chloride 105 (96-108) mmol/L Carbon Dioxide 24 (22-29) mmol/L Anion Gap 12 (12-20) BUN 12 (9-16) mg/dL Creatinine 0.95 (0.5-1.4) mg/dL Estim Creat Clear Calc 143.7 Estimated GFR > 60 Random Glucose 103 (60-115) mg/dL Calcium 8.4 (8.4-10.2) mg/dL Magnesium 1.8 (1.6-2.6) mg/dL Total Bilirubin 0.8 (0.0-1.0) mg/dL AST 120 H (5-37) U/L ALT 94 H (0-40) U/L Alkaline Phosphatase 72 (39-117) U/L C-Reactive Protein 2.30 H (< or = 0.50) mg/dL Total Protein 8.0 (6.5-8.0) g/dL Albumin 3.4 L (3.5-5.0) g/dL Independent Interpretation I performed an independent interpretation of an: Plain X-Ray Interpretation: My interpretation is in agreement with the radiologist's impression of this imaging study. L CLINICAL HISTORY: overlying wound Two views of the left tibia and fibula. COMPARISON: XR left tibia fibula dated 10/26/24 at 10:55 EDT FINDINGS: Soft tissue swelling overlying the left leg. No radiopaque foreign body. Tibia and fibula appear intact. Visualized portions of the left ankle are unremarkable. Lucency within the medial femoral condyle adjacent to the medial compartment suggestive of an osteochondral defect, similar to prior imaging. IMPRESSION: 1. Soft tissue swelling overlying the left lower leg. No evidence of acute injury to the underlying bones. No radiopaque foreign body. 2. Likely osteochondral defect within the medial femoral condyle, similar to prior imaging. MR would be confirmatory if this has not already been characterized. This document has been electronically signed by: Calixto Amezcua MD on 01/28/2025 13:36:04 Dictated By: Calixto Amezcua MD Signed By: Electronically signed by Calixto Amezcua MD 01/28/25 3563 Radiology Impression Discussion of test interpretation with radiology: I have reviewed the radiologist's reading. Prescription Management I considered prescription management with: Antibiotic (patient prescribed antibiotics for possible LLE cellulitis) Discharge Plan Discharge Clinical Impression: Cellulitis, Chronic wound Patient Disposition: Home, Self-Care Instructions: Cellulitis (ED), Chronic Wounds (ED) Additional Instructions: Your work up today was reassuring the infection is not in your bone. Given your increased pain and drainage, we'll cover you with antibiotics. Please follow up with the wound center. IF you are prescribed home medications and/or you are taking over the counter medications at home - it is very important you continue to do so as prescribed / directed unless told otherwise. Follow up with your primary care provider. Return to the emergency department immediately if your symptoms worsen or if you develop any numbness, tingling, dizziness, shortness of breath, difficulty breathing, chest pain, blurry vision, loss of vision, nausea, vomiting, abdominal pain, fever, chills, back pain, or any other complaints. Please see the information below about our Patient Portal. If you are not yet enrolled in the [facility] Patient Portal, you will receive an enrollment email invitation following your visit to any [facility] setting. You may also self-enroll in the Patient Portal by visiting our website: [email or web address] The following information is required to access the Patient Portal: - Your [facility] Medical Record Number - Your personal home email address (must match what is in your electronic medical record, Registration staff can assist with this) - Name - Date of Capabilities of the Patient Portal: - Message some providers - View upcoming appointments - Access your health summary, medical history, and visit history - View current conditions and allergies - View procedure and lab results - View your medications, including guidelines, side effects, and precautions - Complete pre-appointment questionnaires requested by your provider - Ready summary reports of your office visits and procedures To access the Patient Portal Mobile [employer], follow these directions: - Search [employer] in the [employer] Store or [employer] Store - Download the [employer]i - Search for [facility] - Enter your login/password Prescriptions: New cephalexin 500 mg capsule 500 mg PO Q6H 7 Days Qty: 28 0RF doxycycline hyclate 100 mg tablet 100 mg PO BID 7 Days Qty: 14 0RF Discontinued cephalexin 500 mg capsule 500 mg PO Q6H 7 Days Qty: 28 0RF doxycycline hyclate 100 mg tablet 100 mg PO BID 7 Days Qty: 14 0RF doxycycline hyclate 100 mg capsule 100 mg PO BID 10 Days Qty: 20 0RF cephalexin 500 mg capsule 500 mg PO QID 10 Days Qty: 40 0RF doxycycline hyclate 100 mg capsule 100 mg PO BID 10 Days Qty: 20 0RF cephalexin 500 mg capsule 500 mg PO QID 10 Days Qty: 40 0RF cephalexin 500 mg capsule 500 mg PO Q6H 7 Days Qty: 28 0RF doxycycline hyclate 100 mg tablet 100 mg PO BID 7 Days Qty: 14 0RF No Action methadone 10 mg/mL Concentrate 195 mg PO DAILY tramadol 50 mg tablet 50 mg PO Q8H PRN (Reason: pain (scale score 4-6)) Qty: 5 0RF Referrals: Laury Perez MD [Primary Care Provider, Medical] Interventions: ED Discharge Assessment Last Done: 01/28/25 13:57 Discharge Date/Time: 01/28/25 13:57 Print Language: Greek
[2025-01-28 12:52] VITALS: BP 160/77; PULSE 93; RESP 20; TEMP 36.8; O2SAT 98; BMI 47.2
[2025-01-28 13:24] LABS: MANUAL DIFF FLAG NO
[2025-01-28 13:28] LABS: Hematocrit 32.2 % (42.0-52.0); Hemoglobin 10.6 g/dl (14.0-18.0); Imm Gran Abs Auto 0.02 X10*3/uL (0.00-0.03); Imm Gran Pct Auto 0.4 % (0.0-0.4); Lymphocytes Absolute Auto 0.8 X10*3/uL (1.2-4.9); Mean Corpuscular HGB Conc 32.9 g/dl (31.0-36.0); Mean Corpuscular Hemoglobin 27.4 pg (27.0-33.0); Mean Corpuscular Volume 83.2 fL (80.0-98.0); NRBC Abs Auto 0.000 X10*3/uL (0.0-0.012); NRBC Pct Auto 0.0 /100WBC (0.0-0.2); Red Blood Count 3.87 X10*6/uL (4.60-5.80); White Blood Count 4.8 X10*3/uL (4.8-10.8)
[2025-01-28 13:29] LABS: Platelet Count 93 X10*3/uL (160-400)
[2025-01-28 13:46] LABS: Alanine Aminotransferase 94 U/L (0-40); Albumin Level 3.4 g/dL (3.5-5.0); Alkaline Phosphatase 72 U/L (39-117); Anion Gap 12 (12-20); Aspartate Amino Transferase 120 U/L (5-37); Blood Urea Nitrogen 12 mg/dL (9-16); Calcium 8.4 mg/dL (8.4-10.2); Carbon Dioxide 24 mmol/L (22-29); Chloride 105 mmol/L (96-108); Creatinine Clr Calc Pharmacy 143.7; Estimated Glomerular Filt Rate > 60; Magnesium 1.8 mg/dL (1.6-2.6); Potassium 4.1 mmol/L (3.3-5.1); Sodium 137 mmol/L (135-145); Total Protein 8.0 g/dL (6.5-8.0)
[2025-01-28 13:57] VITALS: BP 160/77; PULSE 93; RESP 20; TEMP 36.8; O2SAT 98
== END 2025-01-28 13:57 | disposition home or self-care (01) ==
PROVIDERS: Physician Assistant Medical; Emergency Provider Emergency Medicine; PCP Family Medicine
DX: L03.116 Cellulitis of left lower limb (principal); L97.829 Non-pressure chronic ulcer of other part of left lower leg with unspecified severity; Z79.899 Other long term (current) drug therapy
CPT/HCPCS: 36415; 73590; 80053; 83735; 85025; 85652; 86140; 99282; 99283

== ENCOUNTER → 2025-01-28 12:53 | Outpatient (BNV) | payer MEDICAID, SELFPAY | PROVIDERS: Emergency Provider Emergency Medicine; PCP Family Medicine; Visit Provider Radiology Diagnostic Radiology | DX: R22.42 Localized swelling, mass and lump, left lower limb (principal) | CPT/HCPCS: 73590 ==

== ENCOUNTER 2025-04-20 21:34 | Emergency (ER) | payer MEDICAID, SELFPAY ==
[2025-04-20 21:37] VITALS: BP 130/60; PULSE 70; RESP 16; TEMP 36.9; O2SAT 98; BMI 41.6
--- NOTE | 2025-04-20 21:50 | ED_ITS ---
HPI - General Adult General Chief complaint: Abdominal Pain Stated complaint: Blood In Stool Time Seen by Provider: 04/20/25 21:50 History of Present Illness ED Provider: Nirmal MAYNARD narrative: The patient is a 44-year-old male who says that he developed diarrhea early this morning. He says that he had eaten at his sister's house on Thursday evening. He had beans and other [place] food he says. At around 04:00 he started to feel some abdominal discomfort and a need to have bowel movements. He says that he had a proximally 11 episodes of diarrhea throughout the day. This evening he passed some blood with diarrhea. He was worried about this and came to the emergency room. No fever. No real abdominal pain. Related Data Home Medications ?Medication ?Instructions ?Recorded ?Confirmed methadone 10 mg/mL oral concentrate 195 mg PO DAILY 12/17/24 Previous Rx's ?Medication ?Instructions ?Recorded tramadol 50 mg tablet 50 mg PO Q8H PRN pain (scale score 02/15/24 4-6) #5 tabs cephalexin 500 mg capsule 500 mg PO Q6H 7 days #28 cap s 01/28/25 doxycycline hyclate 100 mg tablet 100 mg PO BID 7 days #14 tabs 01/28/25 Allergies Allergy/AdvReac Type Severity Reaction Status Date / Time No Known Allergies (No Known Allergy Verified 04/20/25 21:38 Allergies*) Review of Systems 2 Review of Systems: Yes all other systems are reviewed and are negative PMFSH Past Medical History Medical History Leg ulcer Left against medical advice Morbid obesity with body mass index (BMI) of 40.0 or higher Bacteremia due to group B Streptococcus IV drug user Surgical History No pertinent past surgical history Family History Family History Other No family history of coronary artery disease Social History Social History Alcohol intake: current Alcohol intake frequency: a few times a week Patient Tobacco Use Status: Current everyday Tobacco user Cigarette Packs Per Day: 1 Substance Use Type: Heroin Advance Directives: No Advance Directives Information Provided: No service: No Current occupational status: employed Physical Exam ED Vital Signs: Vital Signs - 24 hr 04/20/25 21:37 04/20/25 23:26 04/20/25 23:26 Temperature 98.4 F 98.0 F 98.0 F Pulse Rate 70 75 75 Respiratory Rate 16 18 18 Blood Pressure 130/60 139/73 139/73 Pulse Oximetry 98 95 95 Oxygen Delivery Method Room Air Room Air Room Air BMI result Body Mass Index 41.6 Const Other: The patient is awake, alert, pleasant, cooperative. He does not appear uncomfortable or ill. Orientation/consciousness: patient oriented x3 HENMT Other: The face is symmetrical. ?Mucous membranes moist. Eyes Other: Pupils are round equal, conjunctivae are clear, extraocular movements intact Neck Neck: Yes normal visual inspection and Yes full ROM Resp Effort & Inspection: normal respiratory effort Auscultation: clear to auscultation bilaterally Cardio Rate: regular rate Rhythm: regular rhythm Heart sounds: S1 normal heart sound present and S2 normal heart sound present GI Other: The abdomen is soft and nontender. The patient was reluctant to have a rectal exam. Skin Other: The skin is dry and unremarkable Neuro General: patient oriented x3, gait normal, tone normal, moves all extremities, no focal motor deficits and CN's II-XI intact bilaterally Extrem Other: There is no calf swelling or tenderness. No asymmetry. No peripheral edema. Medical Decision Making Medical Decision Making [facility] Narrative: The patient is a 44-year-old male who presents with approximately 17 hours of diarrhea and some complaint of vague abdominal discomfort. He does not really seemed to have abdominal pain and he has a benign abdomen. He says that after at least 11 bowel movements he noticed some blood with his stools. He does not seem to be describing bloody stool. I suspect that this is probably bleeding from perianal irritation or possibly a hemorrhoid. He has a white count of 4.3, hemoglobin 10.7, platelet count 87, unremarkable differential in his white count. His CBC is fairly similar to previous CBCs. His metabolic testing shows an elevated AST and ALT, against somewhat similar to previous testing. Overall my suspicion for a very dangerous process in his the patient is very low. I suspect he has some kind of diarrheal illness that will probably be self-limiting and that the diarrhea frequency provoked some rectal bleeding. While in the emergency room he attempted to have a bowel movement once. He said that he only had some gas, no ongoing diarrhea. No blood with wiping at that episode. The patient's vital signs and overall clinical appearance seem very reassuring. He will be discharged with instructions for conservativet, expectant management. He should return if fever or significantly worse. Lab Data 04/20/25 22:22 04/20/25 22:22 Labs: Lab Results 04/20/25 Range/Units 22:22 WBC 4.3 L (4.8-10.8) X10*3/uL RBC 3.93 L (4.60-5.80) X10*6/uL Hgb 10.7 L (14.0-18.0) g/dl Hct 32.9 L (42.0-52.0) % MCV 83.7 (80.0-98.0) fL MCH 27.2 (27.0-33.0) pg MCHC 32.5 (31.0-36.0) g/dl RDW 16.8 H (11.0-16.0) % Plt Count 87 L (160-400) X10*3/uL MPV 10.4 (9.4-12.4) fL Immature Gran % (Auto) 0.2 (0.0-0.4) % Neut % (Auto) 58.0 (45-73) % Lymph % (Auto) 26.8 (20-40) % [place] % (Auto) 13.4 H (2-11) % Eos % (Auto) 1.4 (0-4) % Baso % (Auto) 0.2 (0-2) % Lymph # (Auto) 1.2 (1.2-4.9) X10*3/uL [place] # (Auto) 0.6 (0.1-1.2) X10*3/uL Eos # (Auto) 0.1 (0.0-0.4) X10*3/uL Baso # (Auto) 0.0 (0.0-0.2) X10*3/uL Abs Immat Gran (auto) 0.01 (0.00-0.03) X10*3/uL Absolute Neuts (auto) 2.5 (2.0-8.3) x10*3/uL Absolute Nucleated RBC 0.000 (0.0-0.012) X10*3/uL Nucleated RBC % (auto) 0.0 (0.0-0.2) /100WBC Sodium 138 (135-145) mmol/L Potassium 3.9 (3.3-5.1) mmol/L Chloride 108 (96-108) mmol/L Carbon Dioxide 24 (22-29) mmol/L Anion Gap 10 L (12-20) BUN 13 (9-16) mg/dL Creatinine 0.96 (0.5-1.4) mg/dL Estim Creat Clear Calc 132.5 Estimated GFR > 60 Random Glucose 92 (60-115) mg/dL Calcium 8.6 (8.4-10.2) mg/dL Total Bilirubin 0.6 (0.0-1.0) mg/dL Direct Bilirubin 0.3 (0.0-0.5) mg/dL AST 143 H (5-37) U/L ALT 117 H (0-40) U/L Alkaline Phosphatase 77 (39-117) U/L Total Protein 7.9 (6.5-8.0) g/dL Albumin 3.3 L (3.5-5.0) g/dL Discharge Plan Discharge Clinical Impression: Diarrhea, Blood per rectum Patient Disposition: Home, Self-Care Instructions: Acute Diarrhea (ED) Additional Instructions: I think you were most likely having some kind of a diarrheal illness that caused a lot of bowel movements. I suspect you are having some degree of bleeding from irritation of your perianal area. You may have bleeding from a small hemorrhoid. I suspect that the diarrhea will likely fix itself in a day or two and that the bleeding should also fix itself. You may use Pepto-Bismol for any mild sense of abdominal upset. Be aware that Pepto-Bismol will turn your stool is very dark. Plan on following up with your regular doctor to discuss this episode further. However if you have any significant worsening discomfort or any actual abdominal pain or rectal pain, or if you develop a fever or vomiting, return to the emergency room for further evaluation. Prescriptions: No Action methadone 10 mg/mL Concentrate 195 mg PO DAILY cephalexin 500 mg capsule 500 mg PO Q6H 7 Days Qty: 28 0RF doxycycline hyclate 100 mg tablet 100 mg PO BID 7 Days Qty: 14 0RF tramadol 50 mg tablet 50 mg PO Q8H PRN (Reason: pain (scale score 4-6)) Qty: 5 0RF Referrals: Laury Perez MD [Primary Care Provider, Medical] Interventions: ED Discharge Assessment Last Done: 04/20/25 23:26 Discharge Date/Time: 04/20/25 23:27 Print Language: Tajik
--- OUTSIDE RECORDS SUMMARY | 2025-04-20 21:59 | XMS_ITS | Encounter Summary ---
Author Organization [employer] Address [address] [facility] 7t [place] [address] Care Team Providers Care Broomcorn Grader Name Role Phone Laury Perez MD Primary Care Provider [phone] Demetria Liz Reason for Visit * Reason Comments Care Coordination C3CM/JUANW Demetria vazquez, Sdoh f/u, program graduation Encounter Details Date Type Department Care Team (Latest Contact Info) Description 04/18/2025 Patient Outreach [facility] MEDICINE [address] [place] [address] Laury Perez MD [address] [place] [phone] Care Coordination (C3MALICK/Braulio Newton f/u, program graduation ) Social History Tobacco Use Types Packs/Day Years [...] What is your housing situation today? I do not have housing (Staying with others, in a hotel, in a skilled nursing, living outside on the street, on a beach, in a car, or in a park 11/24/[address] you li ve. Do you have problems with any of the following? None of the above 11/24/2024 Food Insecurity Answer Date Recorded Within the [...] as of this encounter Progress Notes * Demetria Liz - 04/18/2025 3:00 PM EST CHW Demetria Liz placed outbound call to patient for follow up on SDOH needs. Patient's name, DOBand address confirmed. Patient states is doing well. CHW discussed with the patient progress made in the CHW Program. Patient reports that he still has the low income application and will submit it when he has time. Patient was previously mailed an emergency skilled nursing list. Patient does not want to go to a skilled nursing at this time but will keep the listing just in case he changes his mind. Patient notified is being graduated from the Care Management- CHW Program. Patient [facility] in the future. Patient agrees with the plan and will contact us if any future needs arise. No further questions or concerns. CHW reinforced direct contact information forany additional questions or concerns and extended clinic hours on Mondays and Wednesdays, and Walk-In Urgent Care Located in [facility] of [facility]. Patient provided with after-hours line for [facility], , which offer night time triage service and option to transfer to a r collections rep provider if needed. documented in this encounter Plan of Treatment Not on file documented as of this encounter Visit Diagnoses Not on filedocumented in this encounter Additional Health Concerns Assessment Noted Time PHQ-9 Depression Total Score: 0 08/02/19 2:30 PM EDT documented as of this encounter Care Teams Broomcorn Grader Relationship Specialty Start Date End Date Laury Perez MD [address] [place] [phone] PCP - General Family Medicine 10/31/21 Demetria Liz 11/09/24 04/18/25 documented as of this encounter
--- OUTSIDE RECORDS SUMMARY | 2025-04-20 21:59 | XMS_ITS | Encounter Summary ---
Author Organization [employer] Address [address] [facility] 7t [place] [address] Care Team Providers Care Paediatric Thoracic Physician Name Role Phone Laury Perez MD Primary Care Provider [phone] Demetria Liz Unavailable Reason for Visit * Reason Onset Date Comments Returning phone call 11/09/2024 Encounter Details Date Type Department Care Team ([facility] st Contact Info) Description 11/09/2024 Telephone [facility] MEDICINE [address] [place] [address] Laury Perez MD [address] [place] [address] Returning phone call Social History Tobacco Use Types Packs/Day Years [...] encounter Miscellaneous Notes * Telephone Encounter - Melanie Lynch - 11/09/2024 11:09 AM EDT Tc from pt returning Aleida Bermudez RN phone call. documented in this encounter Plan of Treatment Not on file documented as of this encounter Visit Diagnoses Not on filedocumented in this encounter Additional Health Concerns Assessment Noted Time PHQ-9 Depression Total Score: 0 08/02/19 25 2:30 PM EDT documented as of this encounter Care Teams Paediatric Thoracic Physician Relationship Specialty Start Date End Date Laury Perez MD [address] [place] [phone] PCP - General Family Medicine 10/31/21 Demteria Liz 11/09/24 04/18/25 documented as of this encounter
--- OUTSIDE RECORDS SUMMARY | 2025-04-20 21:59 | XMS_ITS | Encounter Summary ---
Author Organization [employer] Address [address] [facility] 7t [place] [address] Care Team Providers Care Vehicle Body Maker Name Role Phone Laury Perez MD Primary Care Provider [phone] Demetria Liz Encounter Details Date Type Department Care Team ([facility] st Contact Info) Description 08/23/2024 Telephone [facility] MEDICINE [address] [place] [address] Cassidy Tran, PharmD [address] [place] [address] Social History Tobacco Use Types Packs/Day Years [...] documented as of this encounter Care Teams Vehicle Body Maker Relationship Specialty Start Date End Date Laury Perez MD [address] [place] [address] PCP - General Family Medicine 10/31/21 Demetria Liz 11/09/24 04/18/25 documented as of this encounter
--- OUTSIDE RECORDS SUMMARY | 2025-04-20 21:59 | XMS_ITS ---
Author Organization [employer] Address [address] [place] [address] Care Team Providers Care Director Of Loss Prevention Name Role Phone Laury Perez MD Primary Care Provider [phone] CHW Complex Status:Closed (Closed) Start date:11/09/2024 Enrollment date:11/24/2024 Enrollment reason:Referred by provider End date:04/18/2025 Close reason:Goals Partially Met Overview SDOH housing insecurities, homelessness Continued Care and Services Coordination
--- OUTSIDE RECORDS SUMMARY | 2025-04-20 21:59 | XMS_ITS | Clinical Summary ---
Author Organization [employer] Address [address] [facility] 7t [place] [address] Care Team Providers Care Shoe Repair Cobbler Name Role Phone Laury Perez MD Primary Care Provider [phone] Allergies No known active allergies Medications * [...] Encounters Date Type Department Care Team Description 04/18/2025 Patient Outreach [address] [address] Laury Perez MD Care Coordination ([facility]un [facility] f/u, program graduation ) 03/22/2025 Patient Outreach [address] [address] Laury Perez MD Care Coordination ([facility] f/u call ) 02/14/2025 Patient Outreach [address] [address] Laury Perez MD Care Coordination ([facility] f/u call) 02/08/[address] [address] Laury Perez MD Referral 01/28/2025 Orders Only GENERIC EXTERNAL DATA DEPARTMENT Provider, Generic External Data from Last 3 Months Immunizations Immunization Administration Dates Next Due Pneumococcal Conjugate PCV [...] with others, in a hotel, in a [place] [facility] [place], living outside on the street, on a [...] 73 08/01/2024 2:27 PM EDT Temperature 36.7 C (98 F) 08/01/2024 2:27 PM EDT Respiratory Rate 20 [...] 1979 FIT 1979 FOBT 1979 Sigmoidoscopy 1980 Disability Screening 1979 Family Planning (PISQ) 07/28/1994 HPV Vaccines (1 - Male 3-dose series) 07/28/1994 Hepatitis A Vaccines (1 of 2 - Risk 2-dose series) 07/28/1998 Hepatitis B Vaccines (1 of 3 - 19+ 3-dose series) 07/28/1998 COVID-19 Vaccine ( season) 2025 10/01/2021, 10/25/2020, 09/27/2020 Influenza Vaccine (#1) 2025 Alcohol/Substance Use Screening 08/01/2025 08/01/2024 Depression Screening 08/01/2025 08/01/2024, 08/02/19 Tobacco Screening 08/01/2025 08/01/2024 SDOH Screening 11/24/2025 11/24/2024 Lipid Panel 03/02/2029 03/02/2024, 10/24/2021 Zoster Vaccines (1 of 2) 07/28/2029 DTaP/Tdap/Td Vaccines (2 - Td or Tdap) 03/01/2034 03/01/2024 RSV Patients and Patients Aged 60 years or older (1 - 1-dose 75+ series) 07/28/2054 Pneumococcal Vaccine: Pediatrics (0 to 5 Years) and At-Risk Patients (6 to 49) Years Completed 03/01/2024 HIV Screening Completed 07/19/2024, 01/2024, 05/25/2022, Additional history exists HIB Vaccines Aged Out No longer eligi ble based on patient's age to complete this topic IPV Vaccines Aged Out No longer eligi ble based on patient's age to complete this topic Meningococcal B Vaccine Aged Out No l onger eligible based on patient's age to complete [...] Procedure Name Priority Date/Time Associated Diagnosis Comments XR TIBIA FIBULA 2 VIEWS LEFT Routine 01/28/2025 1:36 PM EDT SED RATE BY MODIFIED WESTERGREN Routine 01/28/2025 1:20 PM EDT C-REACTIVE PROTEIN Routine 01/28/2025 1: 20 PM EDT MAGNESIUM Routine 01/28/2025 1:20 PM EDT COMPREHENSIVE METABOLIC PANEL Routine 01/28/2025 1:20 PM EDT CBC WITH AUTO DIFFERENTIAL Routine 01/28/2025 1:20 PM EDT HIV 1/2 ANTIGEN/ANTIBODY, FOURTH GENERATION W/RFL Routine 07/19/2024 10:12 AM EST LIPID PANEL, STANDARD Routine 03/02/2024 8:37 AM EDT Class 3 severe obesity without serious comorbidity with body mass index (BMI) of 45.0 to 49.9 in adult, unspecified obesity type (CMS/HCC) from Last 3 Months or Most Recently Relevant to Health Maintenance Results * XR Tibia Fibula 2 Views Left (01/28/2025 1:36 PM EDT) Anatomical Region Laterality Modality Lower Extremities, Lower Leg Left Rad iographic Imaging 01/28/2025 1:36 PM EDT Narrative 01/28/2025 1:36 PM EDT [address] [address] XRay Report Signed Patient: Alessandro Russo MR#: [id number] [birth year] Acct:[id number] Age/Sex: 44 / M ADM Date: 01/28/25 Loc: HO.ED Attending Dr: Ordering Physician: Lynda Dodson Date of Service: 01/28/25 Procedure(s): XR tibia fibula LT 2V Accession Number(s): [id number] cc: Lynda Dodson; Laury Perez MD Reason for Exam: overlying wound CLINICAL HISTORY: overlying wound Two views of the left tibia and fibula. COMPARISON: XR left tibia fibula dated 10/26/24 at 10:55 EDT FINDINGS: Soft tissue swelling overlying the left leg. No radiopaque foreign body. Tibia and fibula appear intact. Visualized portions of the left ankle are unremarkable. Lucency within the medial femoral condyle adjacent to the medial compartment suggestive of an osteochondral defect, similar to prior imaging. IMPRESSION: 1. Soft tissue swelling overlying the left lower leg. No evidence of acute injury to the underlying bones. No radiopaque foreign body. 2. Likely osteochondral defect within the medial femoral condyle, similar to prior imaging. MR would be confirmatory if this has not already been characterized. This document has been electronically signed by: Calixto Amezcua MD on 01/28/2025 13:36:04 Dictated By: Calixto Amezcua MD Signed By: <Electronically signed by Calixto Amezcua MD in OV> 01/28/25 1336 DD/ 1336 TD/TT: 01/28/25 1336 Insurance Account Representative: Procedure Note Donotuseinterpreter, Image - 01/28/[address] [address] XRay Report Signed Patient: Alessandro Russo RMR#: [id number] 1969 : 1980Acct:[id number] Age/Sex: 44 / MADM Date: 01/28/25 Loc: HO.ED Attending Dr: Ordering Physician: Lynda Dodson Date of Service: 01/28/25 Procedure(s): XR tibia fibula LT 2V Accession Number(s): [id number] cc: Lynda Dodson; Laury Perez MD Reason for Exam: overlying wound CLINICAL HISTORY: overlying wound Two views of the left tibia and fibula. COMPARISON: XR left tibia fibula dated 10/26/24 at 10:55 EDT FINDINGS: Soft tissue swelling overlying the left leg. No radiopaque foreign body. Tibia and fibula appear intact. Visualized portions of the left ankle are unremarkable. Lucency within the medial femoral condyle adjacent to the medial compartment suggestive of an osteochondral defect, similar to prior imaging. IMPRESSION: 1. Soft tissue swelling overlying the left lower leg. No evidence of acute injury to the underlying bones. No radiopaque foreign body. 2. Likely osteochondral defect within the medial femoral condyle, similar to prior imaging. MR would be confirmatory if this has not already been characterized. This document has been electronically signed by: Calixto Amezcua MD on 01/28/2025 13:36:04 Dictated By: Calixto Amezcua MD Signed By: <Electronically signed by Calixto Amezcua MD in OV> 01/28/25 1336 DD/ 1336 TD/TT: 01/28/25 133 Insurance Account Representative: [facility] External Provider IMG XR PROCEDURES Final Result * (ABNORMAL) CBC auto differential (01/28/2025 1:20 PM EDT) White Blood Count 4.8 4.8 - 10.8 X10*3/uL [facility] Red Blood Count 3.87(L) 4.60 - 5.80 X10*6/uL [facility] Hemoglobin 10.6(L) 14.0 - 18.0 g/dl [facility] Hematocrit 32.2(L) 42.0 - 52.0 % [facility] Mean Corpuscular Volume 83.2 80.0 - 98.0 fL [facility] Mean Corpuscular Hemoglobin 27.4 27.0 - 33.0 pg [facility] Mean Corpuscular HGB Conc 32.9 31.0 - 36.0 g/dl [facility] Red Cell Distribution Width 15.6 11.0 - 16.0 % [facility] Platelet Count 93(L) 160 - 400 X10*3/uL [facility] Mean Platelet Volume 9.9 9.4 - 12.4 fL [facility] Neutrophils Percent Auto 70.0 45 - 73 % [facility] Imm Gran Pct Auto 0.4 0.0 - 0.4 % [facility] Lymphocytes Percent Auto 16.5(L) 20 - 40 % [facility] Monocytes Percent Auto 11.9(H) 2 - 11 % [facility] Eosinophils Percent Auto 1.0 0 - 4 % [facility] Basophils Percent Auto 0.2 0 - 2 % [facility] NRBC Pct Auto 0.0 0.0 - 0.2 /100WBC [facility] Neutrophils Absolute Auto 3.4 2.0 - 8.3 x10*3/uL [facility] Imm Gran Abs Auto 0.02 0.00 - 0.03 X10*3/uL [facility] Lymphocytes Absolute Auto 0.8(L) 1.2 - 4.9 X10*3/uL [facility] Monocytes Absolute Auto 0.6 0.1 - 1.2 X10*3/uL [facility] Eosinophils Absolute Auto 0.1 0.0 - 0.4 X10*3/uL [facility] Basophils Absolute Auto 0.0 0.0 - 0.2 X10*3/uL [facility] NRBC Abs Auto 0.000 0.0 - 0.012 X10*3/uL [facility] 01/28/2025 1:20 PM EDT 01/28/2025 1:22 PM EDT us Generic External Data Provider LAB BLOOD ORDERAB LES Final Result [facility] [address] [place] [address] [phone] * (ABNORMAL) Sed Rate by Modified Justyn (01/28/2025 1:20 PM EDT) Erythrocyte Sedimentation Rate 38(H) 0 - 15 MM/HR [facility] Comment:Patients with polycy themia and many hemoglobin abnormalitiesmay have depressed sed rates whereas patients with anemiamay have elevated sed rates. 01/28/2025 1:20 PM EDT 01/28/2025 1:22 PM EDT Generic External Data Provider LAB BLOOD ORDERAB LES Final Result Performing Organization Address [facility] Co de Phone Number [facility] [address] [place] [phone] * (ABNORMAL) C-reactive Protein (01/28/2025 1:20 PM EDT) [facility] C Reactive Protein 2.30(H) < or = 0.50 mg/dL [facility] 01/28/2025 1:20 PM EDT 01/28/2025 1:22 PM EDT Generic External Data Provider LAB BLOOD ORDERAB LES Final Result Performing Organization Address [facility] Co de Phone Number [facility] [address] [place] [phone] * Magnesium (01/28/2025 1:20 PM EDT) [facility] Magnesium 1.8 1.6 - 2.6 mg/dL [facility] 01/28/2025 1:20 PM EDT 01/28/2025 1:22 PM EDT Generic External Data Provider LAB BLOOD ORDERAB LES Final Result Performing Organization Address [facility] Co de Phone Number [facility] [address] [place] [address] [phone] * (ABNORMAL) Comprehensive Metabolic Panel (01/28/2025 1:20 PM EDT) [facility] Sodium 137 135 - 145 mmol/L [facility] Potassium 4.1 3.3 - 5.1 mmol/L [facility] Chloride 105 96 - 108 mmol/L [facility] Carbon Dioxide 24 22 - 29 mmol/L [facility] Anion Gap 12 12 - 20 [facility] Urea Nitrogen (BUN) 12 9 - 16 mg/dL [facility] Creatinine, Serum 0.95 0.5 - 1.4 mg/dL [facility] Creatinine Clr Calc Pharmacy 143.7 [facility] Comment:eGFR (calculated fro m the MDRD study equation) and eCrCl(calculated from the Cockcroft-Gault equation) are based ondifferent parameters and may not yield comparable results.If eCrCl result is absurd, please check patient'sheight/weight. Estimated Glomerular Filt Rate >60 [facility] Comment:Chronic Kidney Disea se: Estimated GFR < 60 mL/min/1.81m7Qdngfy Kidney Disease: Estimated GFR < 15 mL/min/1.73m2 Glucose 103 60 - 115 mg/dL [facility] Calcium 8.4 8.4 - 10.2 mg/dL [facility] Bilirubin, Total 0.8 0.0 - 1.0 mg/dL [facility] Aspartate Amino Transferase 120(H) 5 - 37 U/L [facility] Alanine Aminotransferase 94(H) 0 - 40 U/L [facility] Total Protein 8.0 6.5 - 8.0 g/dL [facility] Albumin Level 3.4(L) 3.5 - 5.0 g/dL [facility] Alkaline Phosphatase 72 39 - 117 U/L [facility] 01/28/2025 1:20 PM EDT 01/28/2025 1:22 PM EDT us Generic External Data Provider LAB BLOOD ORDERAB LES Final Result [facility] [address] [place] [phone] [phone] * HIV-1/2 Antigen and Antibodies, Fourth Generation, with Reflexes (07/19/2024 10:12 AM EST) HIV AB/AG Nonreactive Nonreactive [facility] Comment:HIV-1 p24 Ag and/or HIV-1/HIV-2 Ab not detected.A test result that is nonreactive does not exclude thepossibility of exposure to or infection with HIV-1 and/orHIV-2. Nonreactive results in this assay for individualswith prior exposure to HIV-1 and/or HIV-2 may be due toantigen and antibody levels that are below the limit ofdetection of this assay.The [employer] HIV Ag/Ab Combo assay result andsupplemental assay results should be interpreted inconjunction with the patient's clinical presentation,history and other laboratory results. If the results areinconsistent with clinical evidence, additional testing issuggested to confirm the result. 07/19/2024 10:1 2 AM EST 07/19/2024 11:30 AM EST us Laury Perez MD LAB BLOOD ORDERABLES Final Re sult [facility] [address] [place] [phone] [phone] * Lipid Panel, Standard (03/02/2024 8:37 AM EDT) Triglycerides 53 <150 mg/dL [facility] Comment:Desirable Triglyceri de: less than 150 mg/dLBorderline High Triglyceride 150-199 mg/dLHigh Triglyceride: 200-499 mg/dLVery High Triglyceride: greater than or equal to 5OO mg/dL Cholesterol 99 <200 mg/dL [facility] Comment:Desirable Cholestero l: less than 200 mg/dLBorderline High Cholesterol: 200-239 mg/dLHigh Cholesterol: greater than 239 mg/dL LDL Cholesterol Calculated 45 <100 mg/dL [facility] Comment:Desirable LDL: less than 100 mg/dLNear Optimal/Above Optimal LDL: 110- 129 mg/dLBorderline High LDL: 130-159 mg/dLHigh LDL: 160-189 mg/dLVery High LDL: greater than or equal to 190 mg/dL HDL Cholesterol 44 >40 mg/dL [facility] Comment:Desirable HDL: great er than 40 mg/dL Note: This HDL assay may give artificially low results in patients with liver disease. Blood Venous blood specimen / Unknown 03/02/2024 8:37 AM EDT 03/02/2024 8:37 AM EDT us Laury Perez MD LAB BLOOD ORDERABLES Final Re sult [facility] [address] [place], [place] [phone] from Last 3 Months or Most Recently Relevant to Health Maintenance Insurance [employer]3 Care Teams Shoe Repair Cobbler Relationship Specialty Start Date End Date Laury Perez MD [address] [place] [address] PCP - General Family Medicine 10/31/21
[2025-04-20 22:30] LABS: MANUAL DIFF FLAG NO
[2025-04-20 22:32] LABS: Hematocrit 32.9 % (42.0-52.0); Hemoglobin 10.7 g/dl (14.0-18.0); Imm Gran Abs Auto 0.01 X10*3/uL (0.00-0.03); Imm Gran Pct Auto 0.2 % (0.0-0.4); Lymphocytes Absolute Auto 1.2 X10*3/uL (1.2-4.9); Mean Corpuscular HGB Conc 32.5 g/dl (31.0-36.0); Mean Corpuscular Hemoglobin 27.2 pg (27.0-33.0); Mean Corpuscular Volume 83.7 fL (80.0-98.0); NRBC Abs Auto 0.000 X10*3/uL (0.0-0.012); NRBC Pct Auto 0.0 /100WBC (0.0-0.2); Red Blood Count 3.93 X10*6/uL (4.60-5.80); White Blood Count 4.3 X10*3/uL (4.8-10.8)
[2025-04-20 22:46] LABS: Alanine Aminotransferase 117 U/L (0-40); Albumin Level 3.3 g/dL (3.5-5.0); Alkaline Phosphatase 77 U/L (39-117); Anion Gap 10 (12-20); Aspartate Amino Transferase 143 U/L (5-37); Blood Urea Nitrogen 13 mg/dL (9-16); Calcium 8.6 mg/dL (8.4-10.2); Carbon Dioxide 24 mmol/L (22-29); Chloride 108 mmol/L (96-108); Creatinine Clr Calc Pharmacy 132.5; Estimated Glomerular Filt Rate > 60; Potassium 3.9 mmol/L (3.3-5.1); Sodium 138 mmol/L (135-145); Total Protein 7.9 g/dL (6.5-8.0)
[2025-04-20 22:52] LABS: Platelet Count 87 X10*3/uL (160-400)
[2025-04-20 23:26] VITALS: BP 139/73; PULSE 75; RESP 18; TEMP 36.7; O2SAT 95
== END 2025-04-20 23:27 | disposition home or self-care (01) ==
PROVIDERS: Emergency Provider Emergency Medicine; PCP Family Medicine
DX: R19.7 Diarrhea, unspecified (principal); R10.9 Unspecified abdominal pain; F17.200 Nicotine dependence, unspecified, uncomplicated; Z71.6 Tobacco abuse counseling
CPT/HCPCS: 36415; 80048; 80076; 85025; 99283